=== PATIENT | male | born 1955 | race Caucasian/White ===

== ENCOUNTER → 2019-04-26 | Outpatient (CLI) | payer MEDICARE ==
[2019-04-27 14:24] LABS: LOG HCV IU/mL <1.08 (<1.08)
== END | disposition home or self-care (01) ==
LOC: LABWHC1 15:52
PROVIDERS: ATTEND Family Medicine
DX: R76.8 Other specified abnormal immunological findings in serum (principal)
CPT/HCPCS: 36415; 87522

== ENCOUNTER 2021-01-15 08:06 | Day surgery (SDC) | payer MEDICARE ==
[2021-01-14 10:33] VITALS: BMI 34.4
[~2021-01-15 08:06] MED LIST: ACETAMINOPHEN TAB 500 MG TAB PO PRN; HEPARIN SODIUM,PORCINE/PF 5,000 UNIT/0.5 ML SYRINGE SQ PRN
[2021-01-15 09:03] LABS: Glucose,Whole Blood 147 mg/dL (75-99)
[2021-01-15] MEDS ORDERED: ONDANSETRON 4 MG/2 ML VIAL ONE (09:04)
[2021-01-15] MEDS ORDERED: LACTATED RINGERS 1,000 ML IV ONE ×3 (09:05→11:04)
--- NOTE | 2021-01-15 09:50 | P.GSHP ---
History of Present Illness H&P Date: 01/15/21 Chief Complaint: Right upper quadrant pain This is a 65-year-old male who's presents with right upper quadrant pain. Patient CAT scan shows evidence of cholelithiasis. He presents today for laparoscopic cholecystectomy Past Medical History Past Medical History: COPD, Diabetes Mellitus, GERD/Reflux, Hyperlipidemia, Hypertension, Liver Disease, Osteoarthritis (OA), Prostate Disorder, Sleep Apnea/CPAP/BIPAP Additional Past Medical History / Comment(s): Hx Hepatitis C, now resolved. Enlarged prostate/urinary frequency. No CPAP use. Umbilical Hernia. History of Any Multi-Drug Resistant Organisms: None Reported Past Surgical History: Back Surgery, Coronary Bypass/CABG Additional Past Surgical History / Comment(s): Fusion L1-L5 back, bilateral rotator cuff repairs, bilateral knee surgery, left wrist carpal tunnel surgery, aortic valve replacement, foot surgery, bilateral catarcats, bilateral corneal transplants. Past Anesthesia/Blood Transfusion Reactions: No Reported Reaction Past Psychological History: No Psychological Hx Reported Smoking Status: Current every day smoker Past Alcohol Use History: None Reported Additional Past Alcohol Use History / Comment(s): Smokes 1 1/2 pack daily on and off for yrs, started again 5 yrs ago. Past Drug Use History: None Reported - Past Family History Mother Family Medical History: Cancer Additional Family Medical History / Comment(s): Breast Cancer. Sister(s) Family Medical History: Cancer Additional Family Medical History / Comment(s): Kidney, Vaginal Cancer. Medications and Allergies Home Medications Medication Instructions Recorded Confirmed Type Albuterol Inhaler [Ventolin Hfa 2 puff INHALATION RT-QID 05/28/20 01/15/21 History Inhaler] Atorvastatin [Lipitor] 20 mg PO HS 05/28/20 01/15/21 History Budesonide/Formoterol Fumarate 1 puff INHALATION BID 05/28/20 01/15/21 History [Symbicort 80-4.5 Mcg Inhaler] Metoprolol Succinate [Toprol XL] 50 mg PO QAM 05/28/20 01/14/21 History Pantoprazole Sodium 40 mg PO QAM 05/28/20 01/14/21 History Tamsulosin [Flomax] 0.4 mg PO DAILY 05/28/20 01/14/21 History metFORMIN HCL [Glucophage] 1,000 mg PO BID 05/28/20 01/15/21 History Pregabalin [Lyrica] 100 mg PO BID 01/14/21 01/14/21 History lisinopriL 20 mg PO BID 01/14/21 01/14/21 History traMADol HCL [Ultram] 50 mg PO Q8H PRN 01/15/21 01/15/21 History Allergies Allergy/AdvReac Type Severity Reaction Status Date / Time Interferons Allergy Anaphylaxis Verified 01/15/21 08:29 peginterferon ananda-2a Allergy Anaphylaxis Verified 01/15/21 08:29 [From Pegasys] riboflavin (vitamin B2) Allergy Anaphylaxis Verified 01/15/21 08:29 amitriptyline AdvReac Nausea & Verified 01/15/21 08:29 Vomiting & Diarrhea aspirin AdvReac Unknown Verified 01/15/21 08:31 gabapentin [From Neurontin] AdvReac Unknown Verified 01/15/21 08:29 Penicillins AdvReac Nausea & Verified 01/15/21 08:29 Vomiting sulfamethoxazole AdvReac Nausea & Verified 01/15/21 08:29 [From Bactrim] Vomiting trimethoprim [From Bactrim] AdvReac Nausea & Verified 01/15/21 08:29 Vomiting Surgical - Exam Vital Signs Temp Pulse Resp BP Pulse Ox 97.1 F L 79 16 161/96 96 01/15/21 08:27 01/15/21 08:27 01/15/21 08:27 01/15/21 08:27 01/15/21 08:27 - General well developed, well nourished, no distress - Eyes PERRL - ENT normal pinna - Neck no masses - Respiratory normal expansion - Cardiovascular Rhythm: regular - Abdomen Abdomen: soft, non tender Results - Labs Abnormal Lab Results - Last 24 Hours (Table) 01/15/21 Range/Units 08:56 POC Glucose (mg/dL) 147 H (75-99) mg/dL Assessment and Plan Assessment: Cholelithiasis. We'll perform laparoscopic cholecystectomy.
[2021-01-15] MEDS ORDERED: NEOSTIGMINE 1 MG/ML 10 ML VIAL ONE (09:53)
[2021-01-15] MEDS ORDERED: ROCURONIUM 10 MG/ML (5 ML VIAL) IV ONE (09:53)
[2021-01-15] MEDS ORDERED: fentaNYL (PF) 50 MCG/ML 2 ML AMP ONE (09:53)
[2021-01-15] MEDS ORDERED: GLYCOPYRROLATE 0.2 MG/ML 2 ML VIAL ONE (09:53)
[2021-01-15] MEDS ORDERED: MIDAZOLAM 2 MG/2 ML VIAL ONE (09:53)
[2021-01-15] MEDS ORDERED: SUCCINYLCHOLINE CHLORIDE 100 MG/5 ML SYR IV ONE (09:53)
[2021-01-15] MEDS ORDERED: LIDOCAINE 1% INJ 10MG/ML (20 ML MDV) ONE (09:53)
[2021-01-15] MEDS ORDERED: PHENYLEPHRINE-0.9% NACL SYG 1,000 MCG/10 ML SYRINGE ONE (09:53)
[2021-01-15] MEDS ORDERED: PROPOFOL 10 MG/ML 20 ML VIAL IV ONE (09:53)
[2021-01-15] MEDS ORDERED: LIDOCAINE 0.5%-EPI 1:200,000 50 ML VIAL SQ ONE ×2 (09:54)
--- NOTE | 2021-01-15 10:40 | P.OP ---
Date of Procedure: 01/15/21 Preoperative Diagnosis: Cholelithiasis Postoperative Diagnosis: Cholelithiasis Procedure(s) Performed: Laparoscopic cholecystectomy Anesthesia: HOWARD Surgeon: Remi Conway Estimated Blood Loss (ml): 5 Pathology: other (Gallbladder) Condition: stable Disposition: PACU Description of Procedure: The patient was placed on the operating table. The patient received a general endotracheal tube anesthesia. The patients abdomen was prepped and draped in the usual sterile fashion. Through an infraumbilical stab incision, the fascia of the anterior abdominal wall was grasped with a pair of Kochers and then the Veress needle was placed in the peritoneal cavity. Position of the Veress needle was confirmed with positive drop test. The abdomen was then insufflated. After adequate insufflation, the 10 mm trocar was placed in the peritoneal cavity. Following this the laparoscope was placed in the peritoneal cavity. The patient was placed in the head-up, right side up position and then a 5 mm trocar was placed in the right lateral and right subcostal position under direct visualization. A 8 mm trocar was placed in the epigastric position. The gallbladder was grasped in the fundus and infundibulum. Traction on the gallbladder was placed in the lateral and the cephalad positions. The triangle of Calot was visualized.. The cystic duct was bluntly dissected until the union of the cystic duct and common bile duct was seen. A critical view of safety was achieved. The cystic duct was then divided and sealed with the Harmonic scissors. A PDS Endoloop was then placed throughout the cystic duct stump. The cystic artery divided and sealed with the Harmonic scissors. The gallbladder was then removed from the liver bed using Harmonic scissors. The gallbladder was then extracted through the epigastric port site. Operative field was checked for any bleeding spots and Harmonic scissors was used to coagulate the liver bed. The abdomen was irrigated. The trocars were removed. The skin was closed using interrupted 3-0 Vicryl suture. Dermabond dressing were applied. The patient tolerated the procedure well.
[2021-01-15] MEDS ORDERED: HYDROmorphone 0.5 MG/0.5 ML SYRINGE IVP ONE ×2 (10:43→11:20)
[2021-01-15] MEDS: HYDROmorphone 1 MG/ML 1 ML SYRINGE IVP ONE ×2 (10:48→11:00)
[2021-01-15 11:08] VITALS: TEMP 97.5
[2021-01-15 11:31] LABS: Glucose,Whole Blood 157 mg/dL (75-99)
[2021-01-15 12:51] VITALS: BP 90/55; PULSE 67; RESP 20
== END 2021-01-15 13:26 | disposition home or self-care (01) ==
LOC: OR 08:06
PROVIDERS: ATTEND Surgery
DX: K81.1 Chronic cholecystitis (principal); J44.9 Chronic obstructive pulmonary disease, unspecified; E11.9 Type 2 diabetes mellitus without complications; K21.9 Gastro-esophageal reflux disease without esophagitis; E78.5 Hyperlipidemia, unspecified; I10 Essential (primary) hypertension; Z86.19 Personal history of other infectious and parasitic diseases; N40.0 Benign prostatic hyperplasia without lower urinary tract symptoms; R35.0 Frequency of micturition; K42.9 Umbilical hernia without obstruction or gangrene; Z95.1 Presence of aortocoronary bypass graft; Z98.1 Arthrodesis status; Z98.890 Other specified postprocedural states; Z98.42 Cataract extraction status, left eye; Z98.41 Cataract extraction status, right eye; Z94.7 Corneal transplant status; F17.210 Nicotine dependence, cigarettes, uncomplicated; Z95.2 Presence of prosthetic heart valve; Z97.2 Presence of dental prosthetic device (complete) (partial); Z80.3 Family history of malignant neoplasm of breast; Z80.51 Family history of malignant neoplasm of kidney; Z80.49 Family history of malignant neoplasm of other genital organs; Z79.84 Long term (current) use of oral hypoglycemic drugs; Z79.51 Long term (current) use of inhaled steroids; Z79.899 Other long term (current) drug therapy; Z88.6 Allergy status to analgesic agent; Z88.0 Allergy status to penicillin; Z88.2 Allergy status to sulfonamides; Z88.8 Allergy status to other drugs, medicaments and biological substances; M19.90 Unspecified osteoarthritis, unspecified site
CPT/HCPCS: 88304; 47562; J2250; J2710; J0690; J2405; J2001; J3010; J1170 ×2; J2370; J0330; J2704; J1644

== ENCOUNTER 2021-02-05 11:02 | Day surgery (SDC) | payer MEDICARE ==
[2021-02-03 10:38] VITALS: BMI 33.5
[~2021-02-05 11:02] MED LIST changes: +DEXAMETHASONE SOD PHOSPHATE 4 MG/ML 1 ML VIAL IV ONE; +LIDOCAINE 1% (10MG/ML) FOR IV START INTRADERMA PRN; +MIDAZOLAM 2 MG/2 ML VIAL IV PRN; +ONDANSETRON 4 MG/2 ML VIAL IVP ONE
[2021-02-05] MEDS: LACTATED RINGERS 1,000 ML IV SCH ×2 (11:19→12:15)
[2021-02-05 11:31] VITALS: TEMP 97.1
--- NOTE | 2021-02-05 11:55 | P.GSHP ---
History of Present Illness H&P Date: 02/05/21 Chief Complaint: Incarcerated umbilical hernia Is a 66-year-old male who presents today for laparoscopic robotic system repair of incarcerated umbilical hernia. Patient developed a tender mass in his umbilicus. Past Medical History Past Medical History: COPD, Diabetes Mellitus, GERD/Reflux, Hyperlipidemia, Hypertension, Liver Disease, Prostate Disorder, Respiratory Disorder, Sleep Apnea/CPAP/BIPAP Additional Past Medical History / Comment(s): hx hepatitis C, tinnitus, no cpap used, back injury from 40 foot fall, neuropathy, degenerative disks-"tilted pelvis", rt lazy eye History of Any Multi-Drug Resistant Organisms: None Reported Past Surgical History: Back Surgery, Cardiac Valve Replacement, Cholecystectomy, Coronary Bypass/CABG, Orthopedic Surgery Additional Past Surgical History / Comment(s): 2010 back fusion L1-L5 with hardware, shoulder rotator cuff bilateral, miniscus repair bilateral knees, carpal tunnel left wrist, Aortic valve replacement 2014, removal of neuroma from left foot, Cateracts bilateral, partial cornea transplant [facility](rt eye December 2020), cholecystecomy 01/15/21 Past Anesthesia/Blood Transfusion Reactions: No Reported Reaction Smoking Status: Current every day smoker - Past Family History Mother Family Medical History: Cancer Additional Family Medical History / Comment(s): breast Sister(s) Family Medical History: Cancer Additional Family Medical History / Comment(s): breast Medications and Allergies Home Medications Medication Instructions Recorded Confirmed Type Albuterol Inhaler [Ventolin Hfa 2 puff INHALATION RT-QID PRN 05/28/20 02/05/21 History Inhaler] Atorvastatin [Lipitor] 20 mg PO HS 05/28/20 02/05/21 History Budesonide/Formoterol Fumarate 1 puff INHALATION BID 05/28/20 02/05/21 History [Symbicort 80-4.5 Mcg Inhaler] Metoprolol Succinate [Toprol XL] 50 mg PO QAM 05/28/20 02/05/21 History Pantoprazole Sodium 40 mg PO QAM 05/28/20 02/05/21 History Tamsulosin [Flomax] 0.4 mg PO DAILY 05/28/20 02/05/21 History metFORMIN HCL [Glucophage] 1,000 mg PO BID 05/28/20 02/05/21 History Acetaminophen Tab [Tylenol] 650 mg PO Q6H PRN 02/03/21 02/05/21 History Aspirin [Adult Low Dose Aspirin EC] 81 mg PO DAILY 02/03/21 02/03/21 History Hydrocodone/Acetaminophen [[place] 1 tab PO TID PRN 02/03/21 02/05/21 History 7.5-325] Lisinopril-Hctz 20-12.5 mg 1 tab PO BID 02/03/21 02/05/21 History [Zestoretic 20-12.5] Moxifloxacin [Vigamox 0.3%] 1 drop RIGHT EYE DIRECTED 02/03/21 02/05/21 History Prednisolone Acetate/Pf 1 drop BOTH EYES DIRECTED 02/03/21 02/05/21 History [Prednisolone Acet 1% Eye Drop] Pregabalin [Lyrica] 150 mg PO TID 02/03/21 02/05/21 History Allergies Allergy/AdvReac Type Severity Reaction Status Date / Time Interferons Allergy Anaphylaxis Verified 02/05/21 11:24 peginterferon ananda-2a Allergy Anaphylaxis Verified 02/05/21 11:24 [From Pegasys] riboflavin (vitamin B2) Allergy Anaphylaxis Verified 02/05/21 11:24 amitriptyline AdvReac Nausea & Verified 02/05/21 11:24 Vomiting & Diarrhea aspirin AdvReac RINGING IN Verified 02/05/21 11:24 EARS, DR STILL WANTS HIM TO TAKE IT. gabapentin [From Neurontin] AdvReac Unknown Verified 02/05/21 11:24 Penicillins AdvReac Nausea & Verified 02/05/21 11:24 Vomiting sulfamethoxazole AdvReac Nausea & Verified 02/05/21 11:24 [From Bactrim] Vomiting trimethoprim [From Bactrim] AdvReac Nausea & Verified 02/05/21 11:24 Vomiting Surgical - Exam Vital Signs Temp Pulse Resp BP Pulse Ox 97.1 F L 78 16 125/56 94 L 02/05/21 11:27 02/05/21 11:27 02/05/21 11:27 02/05/21 11:27 02/05/21 11:27 - General well developed, well nourished, no distress - Eyes PERRL - ENT normal pinna - Neck no masses - Respiratory normal expansion - Cardiovascular Rhythm: regular - Abdomen Abdomen: soft, non tender Hernia: umbilical (2 cm incarcerated umbilical hernia) Assessment and Plan Assessment: Incarcerated local hernia. We'll perform laparoscopic robotic-assisted repair.
[2021-02-05 12:00] LABS: Glucose,Whole Blood 139 mg/dL (75-99)
[2021-02-05 12:00] LABS: Basophils # (A) 0.1 k/uL (0-0.2); Basophils % (A) 1 %; Eosinophils # (A) 0.4 k/uL (0-0.7); Eosinophils % (A) 4 %; HCT 36.7 % (39.0-53.0); HGB 12.7 gm/dL (13.0-17.5); Lymphocytes # (A) 1.6 k/uL (1.0-4.8); Lymphocytes % (A) 20 %; MCH 30.2 pg (25.0-35.0); MCHC 34.7 g/dL (31.0-37.0); MCV 86.8 fL (80.0-100.0); Mean Platelet Volume 10.4; Monocytes # (A) 0.4 k/uL (0-1.0); Monocytes % (A) 4 %; Neutrophils # (A) 5.6 k/uL (1.3-7.7); Neutrophils % (A) 68 %; Platelet Count 129 k/uL (150-450); RBC 4.23 m/uL (4.30-5.90); RDW 13.8 % (11.5-15.5); WBC 8.2 k/uL (3.8-10.6)
[2021-02-05 12:12] LABS: Albumin 4.5 g/dL (3.5-5.0); Calcium 9.5 mg/dL (8.4-10.2); Potassium 5.4 mmol/L (3.5-5.1); Total Bilirubin 0.3 mg/dL (0.2-1.3); Total Protein 7.1 g/dL (6.3-8.2)
[2021-02-05] MEDS ORDERED: GLYCOPYRROLATE 0.2 MG/ML 2 ML VIAL ONE (12:15)
[2021-02-05] MEDS ORDERED: NEOSTIGMINE 1 MG/ML 10 ML VIAL ONE (12:15)
[2021-02-05] MEDS ORDERED: KETAMINE 10 MG/ML 20 ML VIAL ONE (12:15)
[2021-02-05] MEDS ORDERED: WATER FOR INJECTION, STERILE 10 ML VIAL IV ONE (12:15)
[2021-02-05] MEDS ORDERED: fentaNYL (PF) 50 MCG/ML 2 ML AMP ONE (12:15)
[2021-02-05] MEDS ORDERED: LABETALOL 5 MG/ML VIAL MDV ONE (12:15)
[2021-02-05] MEDS ORDERED: ROCURONIUM 10 MG/ML (5 ML VIAL) IV ONE (12:15)
[2021-02-05] MEDS ORDERED: ePHEDrine SULFATE/0.9% NACL/PF 50 MG/5 ML SYRINGE IV ONE (12:15)
[2021-02-05] MEDS ORDERED: SUCCINYLCHOLINE CHLORIDE 100 MG/5 ML SYR IV ONE (12:15)
[2021-02-05] MEDS ORDERED: KETOROLAC 15 MG/ML 1 ML VIAL ONE (12:15)
[2021-02-05] MEDS ORDERED: LIDOCAINE 1% INJ 10MG/ML (20 ML MDV) ONE (12:15)
[2021-02-05] MEDS ORDERED: PROPOFOL 10 MG/ML 20 ML VIAL IV ONE (12:15)
[2021-02-05] MEDS ORDERED: MIDAZOLAM 2 MG/2 ML VIAL ONE (12:15)
[2021-02-05] MEDS ORDERED: LIDOCAINE 1%-EPI 1:100,000 20 ML VIAL SQ ONE ×2 (12:38→13:09)
--- NOTE | 2021-02-05 13:26 | P.OP ---
Date of Procedure: 02/05/21 Preoperative Diagnosis: Incarcerated umbilical hernia Postoperative Diagnosis: Incarcerated umbilical hernia Procedure(s) Performed: Laparoscopic robotic-assisted repair of incarcerated umbilical hernia excision of incarcerated omentum Anesthesia: HOWARD Surgeon: Remi Conway Estimated Blood Loss (ml): 5 Pathology: other (Omentum) Condition: stable Disposition: PACU Description of Procedure: The patient was placed on the operating table in the supine position. He rec eived general anesthesia. His abdomen was prepped and draped usual fashion. Using a 5 mm optical trocar under direct visualization the peritoneal cavity was entered in the left upper quadrant. The abdomen was then insufflated. The laparoscope was placed back into the perineal cavity. Next a 8 mm robotic trocar was placed in the left lower quadrant and a 12 mm robotic trocar was placed in the left lateral position. The original 5 mm trocar was exchanged for a 8 mm robotic trocar. The patient's placed in the left side up position. And the patient was undocked the robot. The umbilical hernia was visualized. Using hook cautery the peritoneum over the umbilical hernia was excised. The incarcerated omentum was dissected free and sent to pathology. The fascial opening was repaired using 0V LOC suture. Next a piece of 11 cm round ventral light ST mesh was placed into the. Cavity and secured with 2 OV lock suture. The patient was undocked the robot. The needles were retrieved. The fascia of the 12 mm trocar site was closed with 0 Ethibond suture. Skin was closed interrupted 3-0 Monocryl suture. Dermabond dressings was applied. Patient top procedure well and was sent to recovery room stable condition.
[2021-02-05] MEDS: HYDROmorphone 0.5 MG/0.5 ML SYRINGE IVP PRN ×4 (13:53→15:05)
[2021-02-05 15:14] VITALS: RESP 16
[2021-02-05 15:37] VITALS: BP 123/71; PULSE 73
== END 2021-02-05 16:14 | disposition home or self-care (01) ==
LOC: OR 11:02
PROVIDERS: ATTEND Surgery
DX: K42.0 Umbilical hernia with obstruction, without gangrene (principal); J44.9 Chronic obstructive pulmonary disease, unspecified; K21.9 Gastro-esophageal reflux disease without esophagitis; E78.5 Hyperlipidemia, unspecified; I10 Essential (primary) hypertension; E11.40 Type 2 diabetes mellitus with diabetic neuropathy, unspecified; K76.9 Liver disease, unspecified; N42.9 Disorder of prostate, unspecified; G47.30 Sleep apnea, unspecified; Z86.19 Personal history of other infectious and parasitic diseases; H93.19 Tinnitus, unspecified ear; M43.8X9 Other specified deforming dorsopathies, site unspecified; Z95.2 Presence of prosthetic heart valve; Z98.890 Other specified postprocedural states; Z90.49 Acquired absence of other specified parts of digestive tract; Z95.1 Presence of aortocoronary bypass graft; Z98.1 Arthrodesis status; Z98.42 Cataract extraction status, left eye; Z98.41 Cataract extraction status, right eye; Z94.7 Corneal transplant status; F17.200 Nicotine dependence, unspecified, uncomplicated; Z80.3 Family history of malignant neoplasm of breast; Z79.84 Long term (current) use of oral hypoglycemic drugs; Z79.82 Long term (current) use of aspirin; Z79.51 Long term (current) use of inhaled steroids; Z79.899 Other long term (current) drug therapy; Z88.6 Allergy status to analgesic agent; Z88.0 Allergy status to penicillin; Z88.2 Allergy status to sulfonamides; Z88.8 Allergy status to other drugs, medicaments and biological substances
CPT/HCPCS: 88305; 80053; 85025; 49587; C1781; J2250; J1100; J2710; J0690; J2405; J2001; J3010; J1885; J0330; J2704; J1170; J1644

== ENCOUNTER → 2021-08-08 | Outpatient (CLI) | payer MEDICARE ==
--- NOTE | 2021-08-08 09:03 | CTL ---
EXAMINATION TYPE: CT Low Dose Lung DATE OF EXAM ORDERED: 08/08/2021 COMPARISON: None HISTORY: . Low Dose CT Lung Screening CT DLP: 135.[address] CTDI: 3.7 mGy IV CONTRAST USED: None. SCREENING VISIT: First visit COMPARISON: None. TECHNIQUE: Low dose computed tomography scan was performed through the chest at 1 millimeter thick se ctions and reconstructed images in the coronal plane at [address] DIAGNOSTIC QUALITY: Satisfactory FINDINGS: LUNG NODULES: There is pleural-based density measuring 2.2 x 1.7 cm which is likely postinflammatory in nature. As a precautionary measure follow-up study in 3 months is advised. LUNGS: COPD: Severity: Moderate. Postinflammatory changes noted right lower lobe and right middle lobe. Johnna trilobular emphysematous change. Fibrosis: Severity:None Lymph nodes: None Other findings: None RIGHT PLEURAL SPACE: Effusion: None Calcification: None Thickening: See above. Pneumothorax: None LEFT PLEURAL SPACE: Effusion: None Calcification: None Thickening: None Pneumothorax: None HEART: Heart Size: Mildly enlarged Coronary calcification: Mild Pericardial effusion: None OTHER FINDINGS: Upper abdomen: No significant abnormality Bony thorax: Degenerative changes Supraclavicular region: No significant abnormalityOther: No significant abnormalityI IMPRESSION: There is pleural-based density measuring 2.2 x 1.7 cm which is likely postinflammatory in nature. As a precautionary measure follow-up study in 3 months is advised. FOLLOW UP CT CHEST RECOMMENDATION: 3 month follow-up advised. CT LUNG RAD: LUNG RAD CATEGORY probably benign category 2
== END | disposition home or self-care (01) ==
LOC: RADCTMAIN 07:47
PROVIDERS: ATTEND Family Medicine
DX: Z12.2 Encounter for screening for malignant neoplasm of respiratory organs (principal); J98.4 Other disorders of lung
CPT/HCPCS: 71271

== ENCOUNTER → 2021-09-16 | Outpatient (CLI) | payer MEDICARE ==
--- NOTE | 2021-09-17 08:44 | CT ---
EXAMINATION TYPE: CT abdomen pelvis wo con DATE OF EXAM: 09/16/2021 COMPARISON: None HISTORY: 66-year-old male K5 7.32 diverticulitis, LLQ pain R10.32 CT DLP: 1027 mGycm. Automated exposure control for dose reduction was used. TECHNIQUE: Contiguous axial scanning of the abdomen and pelvis without IV contrast. Coronal and sagit lance reconstructions performed. FINDINGS: Mitral annular calcifications are evident. Heart normal size without pericardial effusion. Lung bases show some strandy atelectasis at the inferior lingula. No pleural effusion. Tiny hiatal hernia. Indeterminate round 3.1 cm lesion segment 3 left liver lobe shows soft tissue density. A complicated cyst or hemangioma are benign possibilities. Other etiologies not excluded at this time. Gallbladder surgically absent. The adrenal glands, kidneys, spleen, and atrophic pancreas show no gross abnormality. Ehmy-xz-jbbzffci atherosclerotic calcifications infrarenal abdominal aorta. No dilated small bowel, free fluid, or free air. No mesenteric or retroperitoneal lymphadenopathy. Normal appendix. Mild stool within the right side of the colon. There is minimal sigmoid diverticulos is. No pericolonic inflammatory changes seen. Bladder is urine distended. Prostate gland measures 4.7 cm wide. Partially visualized round 1.1 cm no dule along the lateral aspect of the left upper scrotum, probably a sebaceous cyst, axial image 95. O therwise, no abnormal fluid collection the pelvis or pelvic lymphadenopathy. Bones: Advanced degenerative disc disease visualized lower thoracic spine. There is postoperative patricia nge of posterior lumbar fusion from L2 through S1 levels with corresponding laminectomies. IMPRESSION: 1. Mid sigmoid diverticulosis without acute diverticulitis. 2. An indeterminate round 3.1 cm lesion left liver lobe. Recommend liver ultrasound to attempt furth er characterization. 3. Prostatomegaly at 4.7 cm wide. 4. A partially visualized 1.1 cm nodule along the lateral aspect of the left upper scrotum. A sebace ous cyst is suspected. Correlate with physical exam findings.
== END | disposition home or self-care (01) ==
LOC: RADCTMAIN 14:43
PROVIDERS: ATTEND Surgery
DX: K57.30 Diverticulosis of large intestine without perforation or abscess without bleeding (principal); N40.0 Benign prostatic hyperplasia without lower urinary tract symptoms; N50.89 Other specified disorders of the male genital organs
CPT/HCPCS: 36415; 74176; 82565; 84520

== ENCOUNTER → 2021-10-08 | Outpatient (CLI) | payer MEDICARE ==
--- NOTE | 2021-10-08 09:23 | US ---
EXAMINATION TYPE: US liver DATE OF EXAM: 10/08/2021 COMPARISON: CT CLINICAL HISTORY: K76.9 Liver lesion. Liver lesion visualized on CT, pt states history of Hep C, GB r emoved EXAM MEASUREMENTS: Liver Length: 15.2 cm CBD: 0.4 cm Right Kidney: 11.0 x 6.1 x 5.3 cm Pancreas: Obscured by bowel gas Liver: Heterogeneous, solid lesion left lobe= 2.8 x 2.7 x 3.3 cm Gallbladder: Surgically absent Evidence for sonographic Hooper's sign: No CBD: wnl Right Kidney: wnl IMPRESSION: 1. Hepatic steatosis. 2. Solid mass left hepatic lobe. Consider MRI of the liver.
== END | disposition home or self-care (01) ==
LOC: RADUSWWP 08:48
PROVIDERS: ATTEND Surgery
DX: K76.0 Fatty (change of) liver, not elsewhere classified (principal); R16.0 Hepatomegaly, not elsewhere classified
CPT/HCPCS: 76705

== ENCOUNTER → 2021-10-29 | Outpatient (CLI) | payer MEDICARE ==
--- NOTE | 2021-10-31 10:54 | MR ---
EXAMINATION TYPE: MR liver wo/w con DATE OF EXAM: 10/29/2021 COMPARISON: CT 09/16/2021 and ultrasound 10/08/2021 HISTORY: 66-year-old male K76.89, Liver mass. Technique: Multiplanar, multisequence images of the abdomen were obtained before and after administra tion of 10 mL intravenous Gadavist gadolinium contrast. FINDINGS: The liver is normal size at 14.5 cm. No significant fatty infiltration appearing to oppose phase T1-w eighted images. There is a mildly T2 hyperintense and T1 low signal intensity 3.2 cm lesion redemonstrated involving segment 3 left liver lobe. This is mostly bright on ADC map but with slight low signal intensity. Thi s is a hypervascular lesion demonstrating heterogeneous arterial enhancement on the earliest postcont rast sequence. No significant washout is identified and the lesion demonstrates persistent heterogeneous enhancement on later phases. No additional liver lesion seen. No biliary ductal dilatation. Portal venous system is patent. Gallbladder surgically absent. Cortical defect lateral left kidney suggesting sequela of prior vascular or infectious insult. Right kidney, adrenal glands, spleen, atrophic pancreas show no gross anomaly. No gross bowel abnormality, upper abdominal ascites, or lymphadenopathy seen. There is moderate stool burden. Artifact relating to the patient's posterior lumbar fusion hardware. IMPRESSION: 1. 3.2 cm solid mass segment 3 left liver lobe. This lesion remains nonspecific, but given the hyperv ascular nature and persistent heterogeneous postcontrast enhancement without washout, an atypical hem angioma is favored at this time. Three-month follow-up ultrasound to reassess. If stable at that time , continued imaging surveillance will be recommended. If any enlargement is noted, tissue sampling ca n then be performed. 2. Status post cholecystectomy. No biliary ductal dilatation.
== END | disposition home or self-care (01) ==
LOC: RADMRIMAIN 14:20
PROVIDERS: ATTEND Surgery
DX: R16.0 Hepatomegaly, not elsewhere classified (principal); Z90.49 Acquired absence of other specified parts of digestive tract
CPT/HCPCS: 74183; A9585

== ENCOUNTER → 2021-12-05 | Outpatient (CLI) | payer MEDICARE ==
--- NOTE | 2021-12-07 20:35 | CT ---
EXAMINATION TYPE: CT abdomen pelvis w con DATE OF EXAM: 12/05/2021 COMPARISON: Prior liver October 29, 2021. CT abdomen and pelvis September 16, 2021 HISTORY: h/o abd pain. Diverticulitis per order. CT DLP: 5.5 mGycm, Automated Exposure Control for Dose Reduction was Utilized. CONTRAST: CT scan of the abdomen and pelvis is performed with oral and with IV Contrast, patient injected with 80 mL of Isovue 300. FINDINGS: LUNG BASES: New mild to moderate linear scarring and/or atelectasis in the right lower lobe. Mitral a nnular calcifications redemonstrated. LIVER/GB: Redemonstration of 3.0 cm round well-circumscribed lesion in the left hepatic lobe becoming hyperintense to liver on arterial postcontrast imaging and being isodense to slightly hypodense to r emainder of liver on delayed phase imaging. It is stable in size from prior CT and MRI, possible atyp ical hemangioma. No definitive new lesions identified. No biliary dilatation is seen. Gallbladder narnedra gically absent. PANCREAS: Mild to moderate generalized fat replaced atrophy . SPLEEN: No significant abnormality is seen. ADRENALS: No significant abnormality is seen. KIDNEYS: Focal volume loss midpole of the left kidney. Symmetric cortical uptake and excretion withou t hydronephrosis seen bilaterally. Oral contrast only reaches jejunal loops in the left abdomen. No suspicious small or large bowel dila tation. Jeaa-jh-rlxyjzex fecal prominence throughout the colon. Normal-appearing appendix from the ce cum. A few diverticula in the sigmoid colon. No CT evidence for acute diverticulitis. PROSTATE/SEMINAL VESICLES: Prostate gland upper limits of normal in size.. LYMPH NODES: No greater than 1cm abdominal or pelvic lymph nodes are appreciated. OSSEOUS STRUCTURES: Slight underlying scoliotic curvature on coronal images. Spine is straightened an d sagittal images. Surgical change L2-S1 level is present. There is zmadgudm-sn-usqqlm disc space bhaskar rowing second disc phenomenon along with moderate spurring and endplate sclerosis at L1-L2 and L5-S1 levels. Similar findings noted at T9-T10 and T10-T11 levels. OTHER: Mild to moderate calcified plaque of the aorta extends into branch vessels. IMPRESSION: A few distal colonic diverticula. No CT evidence for acute diverticulitis. Mild to modera te diffuse colonic fecal prominence. No bowel obstruction.Stable in size nonspecific 3.0 cm liver les ion should be followed.
== END | disposition home or self-care (01) ==
LOC: RADCTMAIN 13:53
PROVIDERS: ATTEND Surgery
DX: K57.30 Diverticulosis of large intestine without perforation or abscess without bleeding (principal); K76.89 Other specified diseases of liver
CPT/HCPCS: 82565; 84520; 74177; 36415; Q9967

== ENCOUNTER → 2022-01-07 | Outpatient (CLI) | payer MEDICARE ==
--- NOTE | 2022-01-07 14:32 | US ---
EXAMINATION TYPE: US liver DATE OF EXAM: 01/07/2022 COMPARISON: 10/08/2021, CT scan 12/05/2021 CLINICAL HISTORY: D18.03 LIVER HEMANGIOMA. Follow up liver lesion EXAM MEASUREMENTS: Liver Length: 16.5 cm CBD: 0.5 cm Right Kidney: 11.4 x 6.4 x 6.6 cm Pancreas: obscured by overlying midline bowel gas Liver: 3.6 x 3.0 x 3.6cm hypoechoic lesion left lobe Gallbladder: surgically absent Evidence for sonographic Hooper's sign: no CBD: wnl Right Kidney: wnl IMPRESSION: 1. There is a 3.6 cm left lobe liver lesion. Corresponds to the CT abnormality. This measures slightl y increased in size relative to prior ultrasound. Correlation with PET scan could BE obtained as clin ically warranted.
== END | disposition home or self-care (01) ==
LOC: RADUSWWP 13:35
PROVIDERS: ATTEND Surgery
DX: K76.89 Other specified diseases of liver (principal); Z90.49 Acquired absence of other specified parts of digestive tract
CPT/HCPCS: 76705

== ENCOUNTER 2022-04-07 06:41 | Day surgery (SDC) | payer MEDICARE ==
[~2022-04-07 06:41] MED LIST changes: -ACETAMINOPHEN TAB 500 MG TAB PO PRN; -DEXAMETHASONE SOD PHOSPHATE 4 MG/ML 1 ML VIAL IV ONE; -HEPARIN SODIUM,PORCINE/PF 5,000 UNIT/0.5 ML SYRINGE SQ PRN; +LACTATED RINGERS 1,000 ML IV SCH; -LIDOCAINE 1% (10MG/ML) FOR IV START INTRADERMA PRN; -MIDAZOLAM 2 MG/2 ML VIAL IV PRN; -ONDANSETRON 4 MG/2 ML VIAL IVP ONE
[2022-04-07] MEDS ORDERED: LIDOCAINE 1% (10MG/ML) FOR IV START INTRADERMA ONE (07:21)
[2022-04-07 07:28] VITALS: TEMP 97.3
[2022-04-07 07:33] LABS: Glucose,Whole Blood 97 mg/dL (70-110)
[2022-04-07] MEDS ORDERED: PROPOFOL 10 MG/ML 20 ML VIAL IV ONE (07:52)
[2022-04-07] MEDS ORDERED: LIDOCAINE 2% INJ 20 MG/ML (2 ML VIAL) ONE (07:52)
--- NOTE | 2022-04-07 08:12 | P.PCN ---
Date of Procedure: 04/07/22 Procedure(s) Performed: BRIEF HISTORY: Patient is a 67-year-old pleasant male scheduled for an elective colonoscopy as a part of evaluation of prior history of colon polyps. Last colonoscopy was 5 years ago. PROCEDURE PERFORMED: Colonoscopy with snare polypectomy and biopsy. PREOPERATIVE DIAGNOSIS: History of colon polyps. IV sedation per Anesthesia. PROCEDURE: After informed consent was obtained, the patient, was brought into the endoscopy unit. IV sedation was administered by Anesthesia under continuous monitoring. Digital rectal examination was normal. Initially the Olympus CF-160 flexible video colonoscope was then inserted in the rectum, gradually advanced into the cecum without any difficulty. Careful examination was performed as the scope was gradually being withdrawn. Ileocecal valve and the appendiceal orifice were visualized and appeared normal. Prep was excellent. Mucosa of the cecum, appeared normal. Ascending colon there were 3 polyps measuring 5-6 cm in size which were removed by snare polypectomy. Also there was a 5 mm isolated ulceration in the ascending colon with friable mucosa which was biopsied. There was another isolated 5 mm mucosal ulceration in the hepatic flexure which was also biopsied. Rest of the ascending colon, transverse colon, descending colon, sigmoid colon, and rectum appeared normal. Retroflexion was performed in the rectum and no lesions were seen. The patient tolerated the procedure well. IMPRESSION: 5 mm, 6 mm 2 ascending colon polyp status post polypectomy 5 mm superficial ascending colon ulceration status post biopsy 5 mm hepatic flexure also status post cold biopsy Rest of the colon appeared normal Recommendations. Findings of this examination were discussed with the patient as well as his family.. He was advised to follow with the biopsy sites. If the biopsy result adenoma he can have a repeat colonoscopy in 5 years
[2022-04-07 08:33] VITALS: BP 108/66; PULSE 57; RESP 16
== END 2022-04-07 08:52 | disposition home or self-care (01) ==
LOC: ORWHC2ENDO 06:41
PROVIDERS: ATTEND Internal Medicine Gastroenterology
DX: Z12.11 Encounter for screening for malignant neoplasm of colon (principal); D12.2 Benign neoplasm of ascending colon; K51.90 Ulcerative colitis, unspecified, without complications; Z86.010 Personal history of colon polyps; I10 Essential (primary) hypertension; E78.5 Hyperlipidemia, unspecified; G47.33 Obstructive sleep apnea (adult) (pediatric); E11.9 Type 2 diabetes mellitus without complications; R79.89 Other specified abnormal findings of blood chemistry; B19.20 Unspecified viral hepatitis C without hepatic coma; Z98.890 Other specified postprocedural states; Z79.899 Other long term (current) drug therapy; Z88.8 Allergy status to other drugs, medicaments and biological substances
CPT/HCPCS: 88305; 45380; 45385; J2704; J2001

== ENCOUNTER → 2022-08-12 | Outpatient (CLI) | payer MEDICARE ==
--- NOTE | 2022-08-12 14:52 | CTL ---
EXAMINATION TYPE: CT Low Dose Lung DATE OF EXAM ORDERED: 08/12/2022 HISTORY: . Lung cancer screening CT DLP: 101.[address] CTD: 2.6 mGy Automated exposure control for dose reduction was used. SCREENING VISIT: COMPARISON: 08/08/2021 TECHNIQUE: Low dose computed tomography scan was performed through the chest at 1 mm thick sections a nd reconstructed images in multiple planes at 1 mm and [address] DIAGNOSTIC QUALITY: Satisfactory FINDINGS: Moderate centrilobular emphysema. Subsegmental linear changes are seen bilaterally most typical atele ctasis or scarring. A pleural-based densities bilaterally are likely postinflammatory and stable. No pleural effusion or pneumothorax. No focal pneumonia. Annular calcification is seen. There is atherosclerotic change of the coronary arteries and aorta. Pr ior surgery of the aortic valve suspected. No sizable pericardial effusion. Hypertrophic and degenerative changes of the spine with multilevel f acet arthropathy. There is a calcification seen near the gallbladder fossa. Postsurgical change invol ving the vertebral column. IMPRESSION: 1. Pleural-based densities are stable most likely postinflammatory or on the basis of chronic atelect asis or scarring. 2. Coronary artery calcification. 3. Moderate centrilobular emphysema CT LUNG RAD AND CT CHEST RECOMMENDATION: Lung-Rad 2 Benign Appearance or Behavior: Continue annual sc reening with LDC in 12 months. S Modifier (other clinically significant findings): S
== END | disposition home or self-care (01) ==
LOC: RADCTMAIN 13:11
PROVIDERS: ATTEND Family Medicine
DX: Z12.2 Encounter for screening for malignant neoplasm of respiratory organs (principal); J43.2 Centrilobular emphysema; I25.10 Atherosclerotic heart disease of native coronary artery without angina pectoris; J98.4 Other disorders of lung; Z87.891 Personal history of nicotine dependence
CPT/HCPCS: 71271

== ENCOUNTER → 2023-11-23 | Outpatient (CLI) | payer MEDICARE ==
--- NOTE | 2023-11-23 22:39 | CTL ---
EXAMINATION TYPE: CT Low Dose Lung DATE OF EXAM ORDERED: 11/23/2023 HISTORY: . Lung cancer screening CT DLP: 107.[address] CTDI: 2.6 mGy Automated exposure control for dose reduction was used. SCREENING VISIT: Subsequent COMPARISON: 08/12/2019 TECHNIQUE: Low dose computed tomography scan was performed through the chest at 1 mm thick sections a nd reconstructed images in the coronal plane at [address] DIAGNOSTIC QUALITY: Satisfactory FINDINGS: LUNG NODULES: None. LUNGS: COPD: Severity: Mild Fibrosis: Severity: None Lymph nodes: None Other findings: None RIGHT PLEURAL SPACE: Effusion: None Calcification: None Thickening: None Pneumothorax: None LEFT PLEURAL SPACE: Effusion: None Calcification: None Thickening: None Pneumothorax: None HEART: Heart Size: Normal Coronary calcification: None Pericardial effusion: None OTHER FINDINGS: Upper abdomen: Normal Bony thorax: Normal Supraclavicular region: Normal Other: Ascending thoracic aorta at the level the main pulmonary artery measures 3.8 cm. The main pul monary artery at the bifurcation measures 2.6 cm. IMPRESSION: 1. No suspicious changes for primary or metastatic neoplasm FOLLOW UP CT CHEST RECOMMENDATION: Follow-up low-dose CT chest one year CT LUNG RAD: Lung-Rad 2 Benign Appearance or Behavior
== END | disposition home or self-care (01) ==
LOC: RADCTMAIN 15:50
PROVIDERS: ATTEND Family Medicine
DX: Z12.2 Encounter for screening for malignant neoplasm of respiratory organs (principal); F17.210 Nicotine dependence, cigarettes, uncomplicated
CPT/HCPCS: 71271

== ENCOUNTER 2024-03-21 20:30 | Inpatient (IN) | payer MEDICARE ==
[~2024-03-21 20:30] MED LIST changes: +ASCORBIC ACID 500 MG TAB ONE; +ATORVASTATIN 20 MG TAB ONE; +ENOXAPARIN 40 MG/0.4 ML SYRINGE SQ ONE; +HYDROcodone/APAP 5-325MG 1 EACH TAB ONE; -LACTATED RINGERS 1,000 ML IV SCH; +MORPHINE SULFATE 4 MG/ML SYRINGE ONE; +ONDANSETRON 4 MG/2 ML VIAL ONE; +PANTOPRAZOLE 40 MG/10 ML VIAL ONE; +SODIUM CHLORIDE 0.9% 1,000 ML BAG ONE; +TAMSULOSIN 0.4 MG CAP.ER.24H PO ONE; +TEMAZEPAM 15 MG CAP ONE; +ZINC SULFATE 220 MG CAP ONE; +amLODIPine 5 MG TAB ONE
[2024-03-21] MEDS ORDERED: PREGABALIN 50 MG CAP ONE (22:21)
[2024-03-22] MEDS ORDERED: amLODIPine 5 MG TAB ONE (08:09)
[2024-03-22] MEDS ORDERED: ATORVASTATIN 20 MG TAB ONE (08:10)
[2024-03-22] MEDS ORDERED: ZINC SULFATE 220 MG CAP ONE (08:10)
[2024-03-22] MEDS ORDERED: ENOXAPARIN 40 MG/0.4 ML SYRINGE SQ ONE (08:10)
[2024-03-22] MEDS ORDERED: TAMSULOSIN 0.4 MG CAP.ER.24H PO ONE (08:10)
[2024-03-22] MEDS ORDERED: ASCORBIC ACID 500 MG TAB ONE (08:10)
[2024-03-22] MEDS ORDERED: GLIMEPIRIDE 2 MG TAB ONE (08:11)
[2024-03-22] MEDS ORDERED: HYDROcodone/APAP 10-325MG 1 EACH TAB ONE (08:11)
[2024-03-22] MEDS ORDERED: PREGABALIN 50 MG CAP ONE (08:11)
[2024-03-22] MEDS ORDERED: METOPROLOL SUCCINATE (ER) 50 MG TAB.ER.24H PO ONE (08:11)
[2024-03-22] MEDS ORDERED: LOPERAMIDE 2 MG CAP ONE (09:52)
--- NOTE | 2024-04-07 12:10 | XR ---
EXAMINATION TYPE: XR chest 2V DATE OF EXAM: 04/07/2024 10:33 AM CLINICAL INDICATION: Male, 69 years old with history of Abd Pain; [facility] COMPARISON: 03/20/2024 TECHNIQUE: XR chest 2V Frontal view of the chest. FINDINGS: Lungs/Pleura: There is no evidence of pleural effusion, focal consolidation, or pneumothorax. Pulmonary vascularity: Unremarkable. Heart/mediastinum: Cardiomediastinal silhouette is unremarkable. Musculoskeletal: No acute osseous pathology. Midline sternotomy wires are noted. IMPRESSION: No acute cardiopulmonary disease/process.
== END 2024-03-22 13:00 | disposition home or self-care (01) | DRG 178 ==
LOC: DISRECOVER 20:30
PROVIDERS: ADMIT Internal Medicine; ATTEND Internal Medicine
DX: U07.1 COVID-19 (principal); N17.9 Acute kidney failure, unspecified; J44.9 Chronic obstructive pulmonary disease, unspecified; E11.9 Type 2 diabetes mellitus without complications; I10 Essential (primary) hypertension; E78.5 Hyperlipidemia, unspecified; E86.0 Dehydration; Z79.84 Long term (current) use of oral hypoglycemic drugs; Z79.51 Long term (current) use of inhaled steroids; Z79.899 Other long term (current) drug therapy; Z88.1 Allergy status to other antibiotic agents; Z88.6 Allergy status to analgesic agent; Z88.0 Allergy status to penicillin; Z88.8 Allergy status to other drugs, medicaments and biological substances
CPT/HCPCS: 93005

== ENCOUNTER 2024-05-24 00:18 | Inpatient (IN) | payer MEDICARE ==
--- NOTE | 2024-05-24 00:43 | ED ---
General Adult HPI - General Chief complaint: Fall Stated complaint: Weakness Time Seen by Provider: 05/24/24 00:32 Source: patient, EMS, RN notes reviewed Mode of arrival: EMS - History of Present Illness Initial comments: 69-year-old male presents emergency department with his via EMS for chief complaint of generalized weakness. states that patient was recently diagn osed with liver cancer approximately 2 weeks ago and is scheduled to have his PET scan 05/25/24. It is reported that over the past week patient has been more weak and has not been getting out of bed much and is been having a sore throat, worsening productive cough, chills. Patient does have a history of COPD. States that he has not been feeling well and has been very weak causing him to fall this evening when he went to use the bathroom. He denies chest pain, dizziness, lightheadedness. Endorses mild shortness of breath. Denies abdominal pain. - Related Data Home Medications Medication Instructions Recorded Confirmed Albuterol Inhaler [Ventolin Hfa 2 puff INHALATION RT-QID PRN 05/28/20 04/07/22 Inhaler] Atorvastatin [Lipitor] 20 mg PO HS 05/28/20 04/07/22 Metoprolol Succinate [Toprol XL] 50 mg PO QAM 05/28/20 04/07/22 Pantoprazole Sodium 40 mg PO QAM 05/28/20 04/07/22 Tamsulosin [Flomax] 0.4 mg PO DAILY 05/28/20 04/07/22 Acetaminophen Tab [Tylenol] 650 mg PO Q6H PRN 02/03/21 04/07/22 Aspirin [Adult Low Dose Aspirin EC] 81 mg PO DAILY 02/03/21 04/07/22 Lisinopril-Hctz 20-12.5 mg 1 tab PO BID 02/03/21 04/07/22 [Zestoretic 20-12.5] Prednisolone Acetate/Pf 1 drop BOTH EYES DIRECTED 02/03/21 04/07/22 [Prednisolone Acet 1% Eye Drop] Glimepiride [Amaryl] 4 mg PO QAM 04/03/22 04/07/22 Hydrocodone/Acetaminophen 1 tab PO Q6H PRN 04/03/22 04/07/22 [Hydrocodone/Acetaminophen 5-325] Lubiprostone 8 mcg PO BID 04/03/22 04/07/22 Pregabalin [Lyrica] 100 mg PO TID 04/03/22 04/07/22 Tiotropium 18 Mcg/Puff [Spiriva] 1 puff INHALATION QAM 04/03/22 04/07/22 Allergies Allergy/AdvReac Type Severity Reaction Status Date / Time Interferons Allergy Anaphylaxis Verified 05/24/24 00:36 peginterferon ananda-2a Allergy Anaphylaxis Verified 05/24/24 00:36 [From Pegasys] riboflavin (vitamin B2) Allergy Anaphylaxis Verified 05/24/24 00:36 amitriptyline AdvReac Nausea & Verified 05/24/24 00:36 Vomiting & Diarrhea aspirin AdvReac RINGING IN Verified 05/24/24 00:36 EARS, DR STILL WANTS HIM TO TAKE IT. gabapentin [From Neurontin] AdvReac Unknown Verified 05/24/24 00:36 Latex, Natural Rubber AdvReac Rash/Hives Verified 05/24/24 03:38 Penicillins AdvReac Nausea & Verified 05/24/24 00:36 Vomiting sulfamethoxazole AdvReac Nausea & Verified 05/24/24 00:36 [From Bactrim] Vomiting trimethoprim [From Bactrim] AdvReac Nausea & Verified 05/24/24 00:36 Vomiting Review of Systems ROS Statement: Those systems with pertinent positive or pertinent negative responses have been documented in the HPI. ROS Other: All systems not noted in ROS Statement are negative. Past Medical History Past Medical History: Cancer, COPD, Diabetes Mellitus, GERD/Reflux, Hyperlipidemia, Hypertension, Liver Disease, Osteoarthritis (OA), Prostate Disorder, Sleep Apnea/CPAP/BIPAP Additional Past Medical History / Comment(s): Hx Hepatitis C, now resolved. Enlarged prostate/urinary frequency. No CPAP use. Umbilical Hernia. Liver Cancer History of Any Multi-Drug Resistant Organisms: None Reported Past Surgical History: Back Surgery, Cholecystectomy, Coronary Bypass/CABG, Hernia Repair Additional Past Surgical History / Comment(s): BILATERAL CORNEAL TRANSPLANT 2020. Fusion L1-L5 back, bilateral rotator cuff repairs, bilateral knee surgery, left wrist carpal tunnel surgery, aortic valve replacement, foot surgery, bilateral catarARACTS Past Anesthesia/Blood Transfusion Reactions: No Reported Reaction Past Psychological History: No Psychological Hx Reported Smoking Status: Current every day smoker Past Alcohol Use History: None Reported Past Drug Use History: None Reported - Past Family History Mother Family Medical History: Cancer Additional Family Medical History / Comment(s): breast Sister(s) Family Medical History: Cancer Additional Family Medical History / Comment(s): breast General Exam General appearance: alert, in no apparent distress Eye exam: Present: normal appearance, PERRL, EOMI. Absent: scleral icterus, conjunctival injection, periorbital swelling ENT exam: Present: mucous membranes dry Respiratory exam: Present: wheezes, rhonchi. Absent: normal lung sounds bilaterally Cardiovascular Exam: Present: regular rate, normal rhythm, normal heart sounds. Absent: systolic murmur, diastolic murmur, rubs, gallop, clicks GI/Abdominal exam: Present: soft, distended, normal bowel sounds. Absent: tenderness, guarding, rebound, rigid Extremities exam: Present: normal inspection, full ROM, normal capillary refill. Absent: tenderness, pedal edema, joint swelling, calf tenderness Back exam: Present: normal inspection Neurological exam: Present: alert, CN II-XII intact Expanded Patient oriented to: Present: person, place Cranial nerves: EOM's Intact: Normal Eye Response: (4) open spontaneously Motor Response: (6) obeys commands Verbal Response: (4) confused conversation [place] Total: 14 Skin exam: Present: warm, dry, intact, normal color. Absent: rash Course Vital Signs 05/24/24 05/24/24 05/24/24 00:22 02:23 03:31 Temperature 97.7 F Pulse Rate 101 H 94 78 Respiratory 22 24 18 Rate Blood Pressure 108/56 122/79 121/64 O2 Sat by Pulse 94 L 94 L 91 L Oximetry Medical Decision Making - Medical Decision Making Was pt. sent in by a medical professional or institution (, PA, STONE SPLITTER, urgent care, hospital, or detention...) When possible be specific @ -No Did you speak to anyone other than the patient for history (EMS, parent, family, police, friend...)? What history was obtained from this source @ -spoke to the patient's at bedside who states the patient has been more weak and confused over the past week and had a fall earlier today. Did you review nursing and triage notes (agree or disagree)? Why? @ -I reviewed and agree with nursing and triage notes Were old charts reviewed (outside hosp., previous admission, EMS record, old EKG, old radiological studies, urgent care reports/EKG's, detention records)? Report findings @ -No old charts were reviewed Differential Diagnosis (chest pain, altered mental status, abdominal pain women, abdominal pain men, vaginal bleeding, weakness, fever, dyspnea, syncope, headache, dizziness, GI bleed, back pain, seizure, CVA, palpatations, mental health, musculoskeletal)? @ -Differential Weakness: Hypoglycemia, shock, sepsis, hyponatremia, anemia, infection, CA, ETOH, adverse medicine reaction, overdose, stroke, this is not meant to be an all-inclusive list. EKG interpreted by me (3pts min.). @ -Completed at 0041 sinus tachycardia with a ventricular rate of 105, NC interval 162, QRS 91, QTc 390. No acute signs of ischemia. X-rays interpreted by me (1pt min.). @ -Chest x-ray no acute cardiopulmonary process or disease CT interpreted by me (1pt min.). @ -CT of the brain without contrast negative for acute intracranial abnormality U/S interpreted by me (1pt. min.). @ -None done What testing was considered but not performed or refused? (CT, X-rays, U/S, labs)? Why? @ -None What meds were considered but not given or refused? Why? @ -None Did you discuss the management of the patient with other professionals (professionals i.e. , PA, STONE SPLITTER, lab, RT, psych nurse, social service worker, americanization teacher, teacher, chief wellness officer, mattress spring encaser)? Give summary @ -i spoke with the patient's PCP, Dr. Hanley, who is the patient's admitting physician in regard to the patient's presentation and laboratory studies conc erning for sepsis. recommend that patient has oncology and infectious disease on consult as well. he will be started on IV antibiotics. Was smoking cessation discussed for >3mins.? @ -No Was critical care preformed (if so, how long)? @ -No Were there social determinants of health that impacted care today? How? (Homelessness, low income, unemployed, alcoholism, drug addiction, transportation, low edu. Level, literacy, decrease access to med. care, long term, rehab)? @ -No Was there de-escalation of care discussed even if they declined (Discuss DNR or withdrawal of care, Hospice)? DNR status @ -No What co-morbidities impacted this encounter? (DM, HTN, Smoking, COPD, CAD, Cancer, CVA, ARF, Chemo, Hep., AIDS, mental health diagnosis, sleep apnea, morbid obesity)? @ -DM, COPD, liver cancer Was patient admitted / discharged? Hospital course, mention meds given and route, prescriptions, significant lab abnormalities, going to OR and other pertinent info. @ -Admitted. 69-year-old male with weakness. Patient presents via EMS with nasal cannula in place. Patient's oxygen saturation is in the low 90s and nasal cannula was removed and patient's oxygen and saturation continues to stay in the middle 90s that is normal for the patient as he does have COPD. Patient is mildly confused as he knows he is in the hospital however is unaware of why he is here, GCS of 15. Neurological exam with no acute deficits. Patient is noted to have dry mucous membranes. Patient is symptomatically treated with IV fluids pending laboratory results. Patient has a leukocytosis of 21 and a left shift with neutrophils of 18.7, he is acidotic with a CO2 of 18, elevated BUN of 114, creatinine 1.64, lactic acid 2.9. Patient is provided with additional 1 L fluid bolus and will be started on IV Rocephin as patient does meet sepsis protocol. troponin nonelevated less than 0.012, ammonia less than 9, COVID, flu, RSV negative. Patient will be admitted to internal medicine, Dr. Hanley, with infectious disease and oncology on consult for further evaluation of sepsis and liver cancer. patient and his are in agreement with admission as well. case discussed in detail with my attending, Dr. Hathaway. Undiagnosed new problem with uncertain prognosis? @ -No Drug Therapy requiring intensive monitoring for toxicity (Heparin, Nitro, Insulin, Cardizem)? @ -No Were any procedures done? @ -No Diagnosis/symptom? @ -weakness, confusion, sepsis, COPD exacerabation Acute, or Chronic, or Acute on Chronic? @ -acute Uncomplicated (without systemic symptoms) or Complicated (systemic symptoms)? @ -complicated Side effects of treatment? @ -No Exacerbation, Progression, or Severe Exacerbation? @ -No Poses a threat to life or bodily function? How? (Chest pain, [place], CA, pneumonia, PE, COPD, DKA, ARF, appy, cholecystitis, CVA, Diverticulitis, Homicidal, Suicidal, threat to staff... and all critical care pts) @ -yes - Lab Data Result diagrams: 05/24/24 00:57 05/24/24 02:20 Lab Results 05/24/24 05/24/24 05/24/24 Range/Units 00:57 00:57 00:57 WBC 21.0 H (3.8-10.6) k/uL RBC 4.13 L (4.30-5.90) m/uL Hgb 11.0 L (13.0-17.5) gm/dL Hct 36.3 L (39.0-53.0) % MCV 87.7 (80.0-100.0) fL MCH 26.6 (25.0-35.0) pg MCHC 30.3 L (31.0-37.0) g/dL RDW 16.4 H (11.5-15.5) % Plt Count 185 (150-450) k/uL MPV 14.4 Neutrophils % 89 % Lymphocytes % 4 % Monocytes % 6 % Eosinophils % 0 % Basophils % 0 % Neutrophils # 18.7 H (1.3-7.7) k/uL Lymphocytes # 0.8 L (1.0-4.8) k/uL Monocytes # 1.3 H (0-1.0) k/uL Eosinophils # 0.0 (0-0.7) k/uL Basophils # 0.0 (0-0.2) k/uL Manual Slide Review Performed Large Platelets Present Hypochromasia Marked Anisocytosis Slight PT 12.3 (10.0-12.5) sec INR 1.2 H (<1.2) APTT 22.5 (22.0-30.0) sec POC Glucose (mg/dL) (70-110) mg/dL POC Glu Morphology Teacher ID Lactic Ac Sepsis Rflx Plasma Lactic Acid Roberto 2.9 H* (0.7-2.0) mmol/L Ammonia <9 (<30) umol/L Troponin I (0.000-0.034) ng/mL Influenza Type A (PCR) (Not Detectd) Influenza Type B (PCR) (Not Detectd) RSV (PCR) (Not Detectd) SARS-CoV-2 (PCR) (Not Detectd) 05/24/24 05/24/24 05/24/24 Range/Units 00:57 01:05 01:36 WBC (3.8-10.6) k/uL RBC (4.30-5.90) m/uL Hgb (13.0-17.5) gm/dL Hct (39.0-53.0) % MCV (80.0-100.0) fL MCH (25.0-35.0) pg MCHC (31.0-37.0) g/dL RDW (11.5-15.5) % Plt Count (150-450) k/uL MPV Neutrophils % % Lymphocytes % % Monocytes % % Eosinophils % % Basophils % % Neutrophils # (1.3-7.7) k/uL Lymphocytes # (1.0-4.8) k/uL Monocytes # (0-1.0) k/uL Eosinophils # (0-0.7) k/uL Basophils # (0-0.2) k/uL Manual Slide Review Large Platelets Hypochromasia Anisocytosis PT (10.0-12.5) sec INR (<1.2) APTT (22.0-30.0) sec POC Glucose (mg/dL) (70-110) mg/dL POC Glu Morphology Teacher ID Lactic Ac Sepsis Rflx Y Plasma Lactic Acid Roberto (0.7-2.0) mmol/L Ammonia (<30) umol/L Troponin I <0.012 (0.000-0.034) ng/mL Influenza Type A (PCR) Not Detected (Not Detectd) Influenza Type B (PCR) Not Detected (Not Detectd) RSV (PCR) Not Detected (Not Detectd) SARS-CoV-2 (PCR) Not Detected (Not Detectd) 05/24/24 Range/Units 01:55 WBC (3.8-10.6) k/uL RBC (4.30-5.90) m/uL Hgb (13.0-17.5) gm/dL Hct (39.0-53.0) % MCV (80.0-100.0) fL MCH (25.0-35.0) pg MCHC (31.0-37.0) g/dL RDW (11.5-15.5) % Plt Count (150-450) k/uL MPV Neutrophils % % Lymphocytes % % Monocytes % % Eosinophils % % Basophils % % Neutrophils # (1.3-7.7) k/uL Lymphocytes # (1.0-4.8) k/uL Monocytes # (0-1.0) k/uL Eosinophils # (0-0.7) k/uL Basophils # (0-0.2) k/uL Manual Slide Review Large Platelets Hypochromasia Anisocytosis PT (10.0-12.5) sec INR (<1.2) APTT (22.0-30.0) sec POC Glucose (mg/dL) 411 H (70-110) mg/dL POC Glu Morphology Teacher ID Krista Jonas Lactic Ac Sepsis Rflx Plasma Lactic Acid Roberto (0.7-2.0) mmol/L Ammonia (<30) umol/L Troponin I (0.000-0.034) ng/mL Influenza Type A (PCR) (Not Detectd) Influenza Type B (PCR) (Not Detectd) RSV (PCR) (Not Detectd) SARS-CoV-2 (PCR) (Not Detectd) Disposition Clinical Impression: Sepsis, Weakness Disposition: ADMITTED IP TO THIS HOSP Condition: Serious Decision to Admit Reason: Admit from EC Decision Date: 05/24/24 Decision Time: 03:10
[2024-05-24] MEDS: SODIUM CHLORIDE 0.9% 1,000 ML IV STA ×2 (01:01→01:53)
[2024-05-24 01:19] LABS: Anisocytosis Slight; Basophils % (A) 0 %; Eosinophils % (A) 0 %; HCT 36.3 % (39.0-53.0); Hypochromasia Marked; Lymphocytes # (A) 0.8 k/uL (1.0-4.8); Lymphocytes % (A) 4 %; MCH 26.6 pg (25.0-35.0); MCHC 30.3 g/dL (31.0-37.0); MCV 87.7 fL (80.0-100.0); Mean Platelet Volume 14.4; Monocytes # (A) 1.3 k/uL (0-1.0); Monocytes % (A) 6 %; Neutrophils # (A) 18.7 k/uL (1.3-7.7); Neutrophils % (A) 89 %; Platelet Count 185 k/uL (150-450); RBC 4.13 m/uL (4.30-5.90); RDW 16.4 % (11.5-15.5)
[2024-05-24 01:36] LABS: Lactic Acid, Venous 2.9 mmol/L (0.7-2.0)
[2024-05-24 01:50] LABS: INR 1.2 (<1.2); Partial Thromboplastin Time 22.5 sec (22.0-30.0); Prothrombin Time 12.3 sec (10.0-12.5)
[2024-05-24 01:56] LABS: Glucose,Whole Blood 411 mg/dL (70-110)
[2024-05-24 02:07] LABS: Large Platelets Present
--- NOTE | 2024-05-24 02:10 | XR ---
EXAM: XR Chest, 2 Views CLINICAL HISTORY: ITS.REASON XR Reason: weakness, cough TECHNIQUE: Frontal and lateral views of the chest. COMPARISON: X-ray chest: 03/22/2024 FINDINGS: Lungs: No consolidation or focal lesions. Pleural space: No pleural effusion. No pneumothorax. Heart: No cardiomegaly. Median sternotomy. Mediastinum: Unremarkable. Normal mediastinal contour. Bones/joints: No acute fracture. Degenerative changes of the spine. Small metallic anchors over the right superior glenoid. Likely bilateral rotator cuff insufficiency IMPRESSION: No acute cardiopulmonary process evident. .
--- NOTE | 2024-05-24 02:13 | CT ---
EXAM: CT Head Without Intravenous Contrast CLINICAL HISTORY: Pt brought in by EMS due to fall, increase confusion and increase weakness. Pt has new dx of liver cancer. H/O DM, COPD, HTN, umbilical hernia, cholecystectomy, CABG, hernia repair, TECHNIQUE: Axial computed tomography images of the head/brain without intravenous contrast. CTDI is 49.2 mGy and DLP is 1168.4 mGy-cm. This CT exam was performed using one or more of the following dose reduction techniques: automated exposure control, adjustment of the mA and/or kV according to patient size, and/or use of iterative reconstruction technique. COMPARISON: None. FINDINGS: Motion-induced image degradation. Brain: There is no acute intracranial hemorrhage, mass-effect or midline shift noted. No abnormal extra-axial fluid collections seen. Moderate diffuse cerebral atrophy with widening of the extra-axial spaces and dilatation. There are areas of decreased attenuation within the periventricular/subcortical white matter, likely from chronic microvascular disease. Bones/joints: Unremarkable. No acute fracture. Soft tissues: Unremarkable. Sinuses: Unremarkable as visualized. No acute sinusitis. Moderate leftward nasal septal deviation. Mastoid air cells: Mild/moderate bilateral mastoiditis. IMPRESSION: No acute intracranial abnormality noted. Chronic involutional and ischemic changes of the brain. .
[2024-05-24 02:50] LABS: ALT 25 U/L (4-49); AST 47 U/L (17-59); African American GFR (CKD) 48 (>60 ml/min/1.73 sqM); Albumin 2.4 g/dL (3.5-5.0); Alkaline Phosphatase 517 U/L (38-126); Anion Gap 8 mmol/L; Calcium 7.4 mg/dL (8.4-10.2); Carbon Dioxide 18 mmol/L (22-30); Chloride 108 mmol/L (98-107); Glucose 376 mg/dL (74-99); Non-African American GFR(CKD) 42 (>60 ml/min/1.73 sqM); Phosphorus 4.7 mg/dL (2.5-4.5); Potassium 5.6 mmol/L (3.5-5.1); Sodium 134 mmol/L (137-145); Total Bilirubin 0.7 mg/dL (0.2-1.3); Total Protein 5.4 g/dL (6.3-8.2)
[2024-05-24 02:52] LABS: Blood Urea Nitrogen 114 mg/dL (9-20)
[2024-05-24 02:56] LABS: NT-Pro-B-Type Natriuretic Pept 969 pg/mL
[2024-05-24] MEDS ORDERED: NALOXONE 0.4 MG/ML 1 ML VIAL IV PRN (03:10)
[2024-05-24] MEDS: SODIUM CHLORIDE 0.9% 1,000 ML IV SCH (03:34)
[2024-05-24 04:33] LABS: Appearance,Urine Clear (Clear); Bilirubin,Urine Negative (Negative); Blood,Urine Negative (Negative); Color,Urine Light Yellow; Glucose,Urine (UA) 3+ (Negative); Ketones,Urine Negative (Negative); Leukocyte Esterase,Urine Negative (Negative); Nitrite,Urine Negative (Negative); Protein,Urine Negative (Negative); Specific Gravity,Urine 1.018 (1.001-1.035); Urobilinogen,Urine <2.0 mg/dL (<2.0)
[2024-05-24 05:10] LABS: Glucose,Whole Blood 209 mg/dL (70-110)
[2024-05-24] MEDS ORDERED: DEXTROSE 50% SYRINGE 50 ML IVP PRN ×2 (08:34)
[2024-05-24 09:16] LABS: Glucose,Whole Blood 284 mg/dL (70-110)
[2024-05-24] MEDS ORDERED: HYDROcodone/APAP 5-325MG 1 EACH TAB PO PRN (09:22)
[2024-05-24] MEDS: PANTOPRAZOLE 40 MG/10 ML VIAL IV SCH (09:23)
[2024-05-24] MEDS: METOPROLOL SUCCINATE (ER) 50 MG TAB.ER.24H PO SCH (09:23)
[2024-05-24] MEDS: NICOTINE 21MG/24HR PATCH TRANSDERM SCH (09:23)
[2024-05-24] MEDS: TAMSULOSIN 0.4 MG CAP.ER.24H PO SCH (09:23)
[2024-05-24] MEDS: INSULIN DETEMIR (LEVEMIR) 100 UNIT/ML SYR SQ SCH (10:38)
[2024-05-24] MEDS: NYSTATIN 100,000 UNIT/ML SUSP 500,000 UNIT/5 ML CUP PO SCH (10:38)
[2024-05-24] MEDS: PREGABALIN 100 MG CAP PO SCH (10:38)
[2024-05-24] MEDS: SYMBICORT 80-4.5 MCG INHALER INHALATION SCH (11:37)
[2024-05-24] MEDS: IPRATROPIUM-ALBUTEROL 3 ML NEB INHALATION SCH (11:43)
[2024-05-24 12:08] LABS: Glucose,Whole Blood 325 mg/dL (70-110)
[2024-05-24] MEDS: PREGABALIN 75 MG CAP PO SCH (12:27)
[2024-05-24] MEDS: INSULIN ASPART (NovoLOG) 100 UNIT/ML VIAL SQ SCH (13:09)
--- NOTE | 2024-05-24 13:15 | P.HPIM ---
History of Present Illness H&P Date: 05/24/24 Chief Complaint: Increased weakness, fall, confusion Is a 69-year-old gentleman with past medical history significant for recently reported diagnosis of liver cancer approximately 2 weeks ago, scheduled for PET scan tomorrow transported to the ER via EMS related to increased weakness, confusion and fall. Patient reports poor appetite, sore throat, loose congested cough, occasionally productive. Denies nausea, vomiting. Afebrile, WBC 21, lactic acid 2.9, 1.7, hemoglobin 11, platelets 185, INR 1.2. Sodium 134, potassium 5.6, bicarb 18, BUN 114, creatinine 1.64. Glucose 376, calcium 7.4, Phos 4.7 magnesium 2 alk phos 517, troponin negative x 1, ammonia less than 9, albumin 2.4. Viral studies negative. Brain CT reported no acute intracranial abnormality. Chest x-ray reported no acute cardiopulmonary process. EKG reported sinus tachycardia, Review of Systems ROS, unable to evaluate at this time, secondary to patient's current mental status. Past Medical History Past Medical History: Cancer, COPD, Diabetes Mellitus, GERD/Reflux, Hyperlipidemia, Hypertension, Liver Disease, Osteoarthritis (OA), Prostate Disorder, Sleep Apnea/CPAP/BIPAP Additional Past Medical History / Comment(s): Hx Hepatitis C, now resolved. Enlarged prostate/urinary frequency. No CPAP use. Umbilical Hernia. Liver Cancer History of Any Multi-Drug Resistant Organisms: None Reported Past Surgical History: Back Surgery, Cholecystectomy, Coronary Bypass/CABG, Hernia Repair Additional Past Surgical History / Comment(s): BILATERAL CORNEAL TRANSPLANT 2020. Fusion L1-L5 back, bilateral rotator cuff repairs, bilateral knee surgery, left wrist carpal tunnel surgery, aortic valve replacement, foot surgery, bilateral catarARACTS Past Anesthesia/Blood Transfusion Reactions: No Reported Reaction Past Psychological History: No Psychological Hx Reported Smoking Status: Current every day smoker Past Alcohol Use History: None Reported Past Drug Use History: None Reported - Past Family History Mother Family Medical History: Cancer Additional Family Medical History / Comment(s): breast Sister(s) Family Medical History: Cancer Additional Family Medical History / Comment(s): breast Medications and Allergies Home Medications Medication Instructions Recorded Confirmed Type Albuterol Inhaler [Ventolin Hfa 2 puff INHALATION RT-QID PRN 05/28/20 05/24/24 History Inhaler] Atorvastatin [Lipitor] 20 mg PO HS 05/28/20 05/24/24 History Metoprolol Succinate [Toprol XL] 50 mg PO QAM 05/28/20 05/24/24 History Pantoprazole Sodium 40 mg PO BID 05/28/20 05/24/24 History Tamsulosin [Flomax] 0.4 mg PO DAILY 05/28/20 05/24/24 History Lisinopril-Hctz 20-12.5 mg 1 tab PO DAILY 02/03/21 05/24/24 History [Zestoretic 20-12.5] Prednisolone Acetate/Pf 1 drop BOTH EYES Q2D 02/03/21 05/24/24 History [Prednisolone Acet 1% Eye Drop] Glimepiride [Amaryl] 4 mg PO DAILY 04/03/22 05/24/24 History Budesonide/Formoterol Fumarate 2 puff INHALATION RT-BID 05/24/24 05/24/24 History [Symbicort 80-4.5 Mcg Inhaler] Clobetasol Propionate [Clobex .05% 1 applic TOPICAL DAILY 05/24/24 05/24/24 History Shampoo] HYDROcodone/APAP 10-325MG [[place] 1 tab PO TID 05/24/24 05/24/24 History 10-325] LORazepam [Ativan] 0.5 mg PO BID PRN 05/24/24 05/24/24 History Metoclopramide [Reglan] 10 mg PO Q6H PRN 05/24/24 05/24/24 History Ondansetron [Zofran] 4 mg PO Q8HR PRN 05/24/24 05/24/24 History Pregabalin [Lyrica] 150 mg PO TID 05/24/24 05/24/24 History Tolterodine ER [Detrol LA] 2 mg PO DAILY 05/24/24 05/24/24 History amLODIPine [Norvasc] 5 mg PO DAILY 05/24/24 05/24/24 History busPIRone HCL 15 mg PO TID PRN 05/24/24 05/24/24 History lisinopriL 40 mg PO DAILY 05/24/24 05/24/24 History Allergies Allergy/AdvReac Type Severity Reaction Status Date / Time Interferons Allergy Anaphylaxis Verified 05/24/24 10:23 peginterferon ananda-2a Allergy Anaphylaxis Verified 05/24/24 10:23 [From Pegasys] riboflavin (vitamin B2) Allergy Anaphylaxis Verified 05/24/24 10:23 amitriptyline AdvReac Nausea & Verified 05/24/24 10:23 Vomiting & Diarrhea aspirin AdvReac RINGING IN Verified 05/24/24 10:23 EARS, DR STILL WANTS HIM TO TAKE IT. gabapentin [From Neurontin] AdvReac Unknown Verified 05/24/24 10:23 Latex, Natural Rubber AdvReac Rash/Hives Verified 05/24/24 10:23 Penicillins AdvReac Nausea & Verified 05/24/24 10:23 Vomiting sulfamethoxazole AdvReac Nausea & Verified 05/24/24 10:23 [From Bactrim] Vomiting trimethoprim [From Bactrim] AdvReac Nausea & Verified 05/24/24 10:23 Vomiting Physical Exam Vitals: Vital Signs Temp Pulse Resp BP Pulse Ox 05/24/24 07:30 98.3 F 92 17 122/67 92 L 05/24/24 06:05 97.7 F 90 20 135/74 94 L 05/24/24 04:31 97.7 F 92 20 120/73 94 L 05/24/24 04:06 89 19 153/74 95 05/24/24 03:31 78 18 121/64 91 L 05/24/24 02:23 94 24 122/79 94 L 05/24/24 00:22 97.7 F 101 H 22 108/56 94 L Intake and Output 05/23/24 05/24/24 05/24/24 22:59 06:59 14:59 Other: Weight 53.524 kg PHYSICAL EXAM: VITAL SIGNS: [Reviewed] GENERAL: Confused, alert to name HEENT: Conjunctivae normal. eyes normal. Oral thrush. NECK: No JVD. No thyroid enlargement. No LNs CARDIOVASCULAR: S1, S2 regular. No murmur RESPIRATION: Unlabored, rhonchorous with loose congested cough. ABDOMEN: Soft, nondistended, generalized diffuse tenderness throughout ,+BS LEGS: No edema. no swelling. PSYCHIATRY: Alert and oriented X3, mood and affect normal. NERVOUS SYSTEM: Cranial N 2-12 grossly normal. Moves all 4 limbs. Diffuse weakness No focal deficits. Strength and sensation grossly intact.. Skin: no lesions, no rash Joints: No active swelling. No inflammation. Lymphatic system. No LN neck axilla or groin. Results CBC & Chem 7: 05/25/24 06:00 05/25/24 06:00 Labs: Abnormal Lab Results - Last 24 Hours (Table) 05/24/24 05/24/24 05/24/24 Range/Units 00:57 00:57 00:57 WBC 21.0 H (3.8-10.6) k/uL RBC 4.13 L (4.30-5.90) m/uL Hgb 11.0 L (13.0-17.5) gm/dL Hct 36.3 L (39.0-53.0) % MCHC 30.3 L (31.0-37.0) g/dL RDW 16.4 H (11.5-15.5) % Neutrophils # 18.7 H (1.3-7.7) k/uL Lymphocytes # 0.8 L (1.0-4.8) k/uL Monocytes # 1.3 H (0-1.0) k/uL INR 1.2 H (<1.2) Sodium (137-145) mmol/L Potassium (3.5-5.1) mmol/L Chloride (98-107) mmol/L Carbon Dioxide (22-30) mmol/L BUN (9-20) mg/dL Creatinine (0.66-1.25) mg/dL Glucose (74-99) mg/dL POC Glucose (mg/dL) (70-110) mg/dL Plasma Lactic Acid Roberto 2.9 H* (0.7-2.0) mmol/L Calcium (8.4-10.2) mg/dL Phosphorus (2.5-4.5) mg/dL Alkaline Phosphatase (38-126) U/L Total Protein (6.3-8.2) g/dL Albumin (3.5-5.0) g/dL Urine Glucose (UA) (Negative) 05/24/24 05/24/24 05/24/24 Range/Units 01:55 02:20 04:06 WBC (3.8-10.6) k/uL RBC (4.30-5.90) m/uL Hgb (13.0-17.5) gm/dL Hct (39.0-53.0) % MCHC (31.0-37.0) g/dL RDW (11.5-15.5) % Neutrophils # (1.3-7.7) k/uL Lymphocytes # (1.0-4.8) k/uL Monocytes # (0-1.0) k/uL INR (<1.2) Sodium 134 L (137-145) mmol/L Potassium 5.6 H (3.5-5.1) mmol/L Chloride 108 H (98-107) mmol/L Carbon Dioxide 18 L (22-30) mmol/L BUN 114 H* (9-20) mg/dL Creatinine 1.64 H (0.66-1.25) mg/dL Glucose 376 H (74-99) mg/dL POC Glucose (mg/dL) 411 H (70-110) mg/dL Plasma Lactic Acid Roberto (0.7-2.0) mmol/L Calcium 7.4 L (8.4-10.2) mg/dL Phosphorus 4.7 H (2.5-4.5) mg/dL Alkaline Phosphatase 517 H (38-126) U/L Total Protein 5.4 L (6.3-8.2) g/dL Albumin 2.4 L (3.5-5.0) g/dL Urine Glucose (UA) 3+ H (Negative) 05/24/24 Range/Units 05:07 WBC (3.8-10.6) k/uL RBC (4.30-5.90) m/uL Hgb (13.0-17.5) gm/dL Hct (39.0-53.0) % MCHC (31.0-37.0) g/dL RDW (11.5-15.5) % Neutrophils # (1.3-7.7) k/uL Lymphocytes # (1.0-4.8) k/uL Monocytes # (0-1.0) k/uL INR (<1.2) Sodium (137-145) mmol/L Potassium (3.5-5.1) mmol/L Chloride (98-107) mmol/L Carbon Dioxide (22-30) mmol/L BUN (9-20) mg/dL Creatinine (0.66-1.25) mg/dL Glucose (74-99) mg/dL POC Glucose (mg/dL) 209 H (70-110) mg/dL Plasma Lactic Acid Roberto (0.7-2.0) mmol/L Calcium (8.4-10.2) mg/dL Phosphorus (2.5-4.5) mg/dL Alkaline Phosphatase (38-126) U/L Total Protein (6.3-8.2) g/dL Albumin (3.5-5.0) g/dL Urine Glucose (UA) (Negative) Assessment and Plan Assessment: Sepsis, etiology unclear, possibly SIRS Leukocytosis Lactic acidosis, resumed with IV fluid hydration Acute hypoxic respiratory failure Dehydration Acute on chronic renal failure, stage III, ATN, home medications Zestoretic/lisinopril on hold, Metabolic acidosis secondary to the above Generalized weakness status post fall Acute metabolic encephalopathy secondary to the above Recent diagnosis of liver cancer 3 weeks ago, scheduled for PET scan 101 History of alcohol abuse History of hepatitis C COPD Sleep apnea, wears CPAP Diabetes mellitus Gastroesophageal reflux disease Hypertension Hyperlipidemia BPH Bilateral corneal transplant 2020 OA, multiple joint surgeries, fusion L1- L5 Ongoing nicotine dependence Plan: Continue on current medication resume ,monitoring and symptomatic treatment. Avoid nephrotoxic agents including, hold Home medications-LOIDA inhibitor/diuretic. blood cultures pending, sputum culture ordered. IV fluid hydration, antibiotics. Nystatin swish and swallow ordered. infectious disease and oncology consults in place. CT of abdomen pelvis ordered. Nephrology consulted, bladder scan and renal ultrasound ordered. Prognosis guarded given multiple complex medical issues. The impression and plan of care has been dictated as directed. : I performed a history and examination of this patient, discussed the same with the dictator. I agree with the dictator's note ,documented as a scribe. Any additional findings or plans will be noted.
--- NOTE | 2024-05-24 13:30 | P.NPCON ---
History of Present Illness - Reason for Consult acute renal failure - History of Present Illness patient is a 69-year-old male who was admitted to the hospital with history of fall. He has had mental status changes and confusion. Recently diagnosed with liver cancer. Serum creatinine was 1.6 today. Previous creatinine was 1.2 on 12/05/2021. Blood pressure has been on the lower side with systolic at 10 8 mmHg on admission. No NSAIDs noted on home med list. Patient was on LOIDA inhibitor's and diuretics which are currently on hold. He is maintained on IV fluids. Past Medical History Past Medical History: Cancer, COPD, Diabetes Mellitus, GERD/Reflux, Hyperlipi demia, Hypertension, Liver Disease, Osteoarthritis (OA), Prostate Disorder, Sleep Apnea/CPAP/BIPAP Additional Past Medical History / Comment(s): Hx Hepatitis C, now resolved. Enlarged prostate/urinary frequency. No CPAP use. Umbilical Hernia. Liver Cancer History of Any Multi-Drug Resistant Organisms: None Reported Past Surgical History: Back Surgery, Cholecystectomy, Coronary Bypass/CABG, Hernia Repair Additional Past Surgical History / Comment(s): BILATERAL CORNEAL TRANSPLANT 2020. Fusion L1-L5 back, bilateral rotator cuff repairs, bilateral knee surgery, left wrist carpal tunnel surgery, aortic valve replacement, foot surgery, bilateral catarARACTS Past Anesthesia/Blood Transfusion Reactions: No Reported Reaction Past Psychological History: No Psychological Hx Reported Smoking Status: Current every day smoker Past Alcohol Use History: None Reported Past Drug Use History: None Reported - Past Family History Mother Family Medical History: Cancer Additional Family Medical History / Comment(s): breast Sister(s) Family Medical History: Cancer Additional Family Medical History / Comment(s): breast Medications and Allergies Home Medications Medication Instructions Recorded Confirmed Type Albuterol Inhaler [Ventolin Hfa 2 puff INHALATION RT-QID PRN 05/28/20 05/24/24 History Inhaler] Atorvastatin [Lipitor] 20 mg PO HS 05/28/20 05/24/24 History Metoprolol Succinate [Toprol XL] 50 mg PO QAM 05/28/20 05/24/24 History Pantoprazole Sodium 40 mg PO BID 05/28/20 05/24/24 History Tamsulosin [Flomax] 0.4 mg PO DAILY 05/28/20 05/24/24 History Lisinopril-Hctz 20-12.5 mg 1 tab PO DAILY 02/03/21 05/24/24 History [Zestoretic 20-12.5] Prednisolone Acetate/Pf 1 drop BOTH EYES Q2D 02/03/21 05/24/24 History [Prednisolone Acet 1% Eye Drop] Glimepiride [Amaryl] 4 mg PO DAILY 04/03/22 05/24/24 History Budesonide/Formoterol Fumarate 2 puff INHALATION RT-BID 05/24/24 05/24/24 History [Symbicort 80-4.5 Mcg Inhaler] Clobetasol Propionate [Clobex .05% 1 applic TOPICAL DAILY 05/24/24 05/24/24 History Shampoo] HYDROcodone/APAP 10-325MG [[place] 1 tab PO TID 05/24/24 05/24/24 History 10-325] LORazepam [Ativan] 0.5 mg PO BID PRN 05/24/24 05/24/24 History Metoclopramide [Reglan] 10 mg PO Q6H PRN 05/24/24 05/24/24 History Ondansetron [Zofran] 4 mg PO Q8HR PRN 05/24/24 05/24/24 History Pregabalin [Lyrica] 150 mg PO TID 05/24/24 05/24/24 History Tolterodine ER [Detrol LA] 2 mg PO DAILY 05/24/24 05/24/24 History amLODIPine [Norvasc] 5 mg PO DAILY 05/24/24 05/24/24 History busPIRone HCL 15 mg PO TID PRN 05/24/24 05/24/24 History lisinopriL 40 mg PO DAILY 05/24/24 05/24/24 History Allergies Allergy/AdvReac Type Severity Reaction Status Date / Time Interferons Allergy Anaphylaxis Verified 05/24/24 10:23 peginterferon ananda-2a Allergy Anaphylaxis Verified 05/24/24 10:23 [From Pegasys] riboflavin (vitamin B2) Allergy Anaphylaxis Verified 05/24/24 10:23 amitriptyline AdvReac Nausea & Verified 05/24/24 10:23 Vomiting & Diarrhea aspirin AdvReac RINGING IN Verified 05/24/24 10:23 EARS, DR STILL WANTS HIM TO TAKE IT. gabapentin [From Neurontin] AdvReac Unknown Verified 05/24/24 10:23 Latex, Natural Rubber AdvReac Rash/Hives Verified 05/24/24 10:23 Penicillins AdvReac Nausea & Verified 05/24/24 10:23 Vomiting sulfamethoxazole AdvReac Nausea & Verified 05/24/24 10:23 [From Bactrim] Vomiting trimethoprim [From Bactrim] AdvReac Nausea & Verified 05/24/24 10:23 Vomiting Physical Exam Vitals: Vital Signs Temp Pulse Pulse Resp BP BP Pulse Ox 05/24/24 13:05 98.0 F 78 16 109/71 92 L 05/24/24 11:54 75 18 05/24/24 11:45 74 18 05/24/24 08:00 98.3 F 91 16 136/77 92 L 05/24/24 07:30 98.3 F 92 17 122/67 92 L 05/24/24 06:05 97.7 F 90 20 135/74 94 L 05/24/24 04:31 97.7 F 92 20 120/73 94 L 05/24/24 04:06 89 19 153/74 95 05/24/24 03:31 78 18 121/64 91 L 05/24/24 02:23 94 24 122/79 94 L 05/24/24 00:22 97.7 F 101 H 22 108/56 94 L Intake and Output 05/23/24 05/24/24 05/24/24 22:59 06:59 14:59 Intake Total 118 Balance 118 Intake: Oral 118 Other: Weight 53.524 kg 53.524 kg patient is awake, comfortable, no acute distress. Examination of the heart S1 and S2 Examination of the lungs bilateral breath sounds are heard Abdomen is soft nontender Examination of lower extremities shows no significant edema Results - Lab Results Most recent lab results Calcium 7.4 mg/dL (8.4-10.2) L 05/24/24 02:20 Phosphorus 4.7 mg/dL (2.5-4.5) H 05/24/24 02:20 Magnesium 2.0 mg/dL (1.6-2.3) 05/24/24 02:20 05/24/24 00:57 05/24/24 02:20 Assessment and Plan Assessment: 1. Acute kidney injury, ATN, rule out urine retention. Maintained on IV fluids. UA is completely benign. Check ultrasound of the kidneys. LOIDA inhibitor's on hold. 2. history of fall 3. Mental status changes 4. Hyperkalemia associated with acute kidney injury in the setting of use of A CE inhibitor's. Rule out urine retention 5. Non-gap metabolic acidosis secondary to acute kidney injury. No history of diarrhea. Plan: continue with IV fluids Check bladder scan Repeat labs in a.m. Avoid nephrotoxic agents Continue to hold diuretics and LOIDA inhibitor's. Check ultrasound of the kidneys. Next Thank you for the consultation. We will continue to follow the patient with you during his hospitalization.
[2024-05-24] MEDS: IOPAMIDOL CONTRAST (ORAL USE) VIAL PO PRN (16:15)
--- NOTE | 2024-05-24 16:17 | US ---
EXAMINATION TYPE: US abd limited kidneys/bladder DATE OF EXAM: 05/24/2024 COMPARISON: 03/20/2024. CLINICAL INDICATION: Male, 69 years old with history of evaluate lesions vs abscesses, s/p abx tx; Se psis, recent liver CA diagnosis TECHNIQUE: Grayscale and color Doppler imaging of the right upper quadrant including the kidneys and urinary bladder. FINDINGS: EXAM MEASUREMENTS: Liver Length: 18.3 cm CBD: 0.4 cm Right Kidney: 12.8 x 6.0 x 5.5 cm Left Kidney: 11.7 x 5.3 x 4.4 cm Pancreas: Obscured by bowel gas Liver: Enlarged, heterogeneous with innumerable masses scattered throughout liver parenchyma Gallbladder: Surgically absent CBD: wnl Right Kidney: No evidence of hydro, lower pole gassed out Left Kidney: No evidence of hydro Bladder: wnl Bilateral Jets Seen No Scant amount of ascites IMPRESSION: 1. Enlarged heterogenous liver scattered masses compatible with diagnosis of liver cancer. Attention follow-up CT is ordered. 2. Small ascites. [facility], , 05/24/2024 4:15 PM
[2024-05-24] MEDS: HYDROcodone/APAP 10-325MG 1 EACH TAB PO SCH (16:22)
--- NOTE | 2024-05-24 16:37 | P.CONS ---
History of Present Illness - Reason for Consult Consult date: 05/24/24 hepatic cancer Requesting physician: Corina Welch - Chief Complaint weakness - History of Present Illness Patient is a 69 year old male with multiple medical problems. He has been evaluated by Dr. Jensen in the past for thrombocytopenia. The patient was found to have a mildly low platelet counts [id number], on CBC done on 05/18/23. Hemoglobin was 12.5, and WBC normal. The patient was also concerned about easy bruising over the prior year. This was affecting his distal upper extremities. He was therefore referred here for further evaluation and recommendations He denied any prior history of blood related problems, clotting disorders or malignancies. He states that he was a heavy alcohol user, and also use illicit drugs until about age 29 when he quit. He is a current smoker, although he had quit for about 15 years in the interim. He started smoking in his teens. He has a history of hepatitis C, and was treated for the same 2, most recently in 2020, with remission. According to the patient he is continuing in remission. He states that liver biopsy done several years ago was "pink" ( presumably he means not cirrhotic). The patient denies any unusual bleeding from oral/nasal/GI or passages. He denies any bruising on other parts of the body. He does not take any antiplatelet therapy or anticoagulation, but is on gabapentin. He also has long-standing diabetes and hypertension, and required aortic valve replacement 5 years ago. It was felt that the mild from cytopenia was most likely due to her prior history of heavy alcohol use and/or some degree of chronic liver disease. Patient's additional workup for both these conditions was essentially negative for other causes, essentially confirming the above clinical impression. Ultrasound showed some mild hepatomegaly without any discrete parenchymal lesions. The patient was therefore advised that his mild thrombo-cytopenia is most likely due to a degree of chronic liver disease. More recently patient was being followed for possible liver lesions vs abscesses. Plan for for patient to complete course of antibiotics with subsequent f/u imaging to revaluate. He is scheduled for PET CT on 05/25/24. At todays visit, HPI is limited due to acute condition. Patient is answering questions, but he is somewhat confused, and not answering all questions appropriately. Per review of ER noted pt presented for progressing weakness, cough, and sore throat. Pt states he has had decreased oral intake and endorses dysphagia. CT brain was negative for acute intracranial processes. Chest x-ray was negative for acute cardiopulmonary processes. Viral panel negative. UA negative for UTI. Patient is afebrile, HDS. Labs reviewed, WBC 21.0, hemoglobin 11.0, platelets 185,000. GFR 1.64, creatinine 1.64, GFR 42. Glucose was elevated on admit at 411. ALP 517, AST 47, ALT 25, bilirubin 0.7. BNP 969. Troponin negative. Ammonia < 9. Blood cultures pending. ID consulted for concern of sepsis Review of Systems 10 point ROS is negative except as stated in the HPI Past Medical History Past Medical History: Cancer, COPD, Diabetes Mellitus, GERD/Reflux, Hyperlipidemia, Hypertension, Liver Disease, Osteoarthritis (OA), Prostate Disorder, Sleep Apnea/CPAP/BIPAP Additional Past Medical History / Comment(s): Hx Hepatitis C, now resolved. Enlarged prostate/urinary frequency. No CPAP use. Umbilical Hernia. Liver Cancer History of Any Multi-Drug Resistant Organisms: None Reported Past Surgical History: Back Surgery, Cholecystectomy, Coronary Bypass/CABG, Hernia Repair Additional Past Surgical History / Comment(s): BILATERAL CORNEAL TRANSPLANT 2020. Fusion L1-L5 back, bilateral rotator cuff repairs, bilateral knee surgery, left wrist carpal tunnel surgery, aortic valve replacement, foot surgery, bilateral catarARACTS Past Anesthesia/Blood Transfusion Reactions: No Reported Reaction Past Psychological History: No Psychological Hx Reported Smoking Status: Current every day smoker Past Alcohol Use History: None Reported Past Drug Use History: None Reported - Past Family History Mother Family Medical History: Cancer Additional Family Medical History / Comment(s): breast Sister(s) Family Medical History: Cancer Additional Family Medical History / Comment(s): breast Medications and Allergies Home Medications Medication Instructions Recorded Confirmed Type Albuterol Inhaler [Ventolin Hfa 2 puff INHALATION RT-QID PRN 05/28/20 05/24/24 History Inhaler] Atorvastatin [Lipitor] 20 mg PO HS 05/28/20 05/24/24 History Metoprolol Succinate [Toprol XL] 50 mg PO QAM 05/28/20 05/24/24 History Pantoprazole Sodium 40 mg PO BID 05/28/20 05/24/24 History Tamsulosin [Flomax] 0.4 mg PO DAILY 05/28/20 05/24/24 History Lisinopril-Hctz 20-12.5 mg 1 tab PO DAILY 02/03/21 05/24/24 History [Zestoretic 20-12.5] Prednisolone Acetate/Pf 1 drop BOTH EYES Q2D 02/03/21 05/24/24 History [Prednisolone Acet 1% Eye Drop] Glimepiride [Amaryl] 4 mg PO DAILY 04/03/22 05/24/24 History Budesonide/Formoterol Fumarate 2 puff INHALATION RT-BID 05/24/24 05/24/24 History [Symbicort 80-4.5 Mcg Inhaler] Clobetasol Propionate [Clobex .05% 1 applic TOPICAL DAILY 05/24/24 05/24/24 History Shampoo] HYDROcodone/APAP 10-325MG [[place] 1 tab PO TID 05/24/24 05/24/24 History 10-325] LORazepam [Ativan] 0.5 mg PO BID PRN 05/24/24 05/24/24 History Metoclopramide [Reglan] 10 mg PO Q6H PRN 05/24/24 05/24/24 History Ondansetron [Zofran] 4 mg PO Q8HR PRN 05/24/24 05/24/24 History Pregabalin [Lyrica] 150 mg PO TID 05/24/24 05/24/24 History Tolterodine ER [Detrol LA] 2 mg PO DAILY 05/24/24 05/24/24 History amLODIPine [Norvasc] 5 mg PO DAILY 05/24/24 05/24/24 History busPIRone HCL 15 mg PO TID PRN 05/24/24 05/24/24 History lisinopriL 40 mg PO DAILY 05/24/24 05/24/24 History Allergies Allergy/AdvReac Type Severity Reaction Status Date / Time Interferons Allergy Anaphylaxis Verified 05/24/24 10:23 peginterferon ananda-2a Allergy Anaphylaxis Verified 05/24/24 10:23 [From Pegasys] riboflavin (vitamin B2) Allergy Anaphylaxis Verified 05/24/24 10:23 amitriptyline AdvReac Nausea & Verified 05/24/24 10:23 Vomiting & Diarrhea aspirin AdvReac RINGING IN Verified 05/24/24 10:23 EARS, DR STILL WANTS HIM TO TAKE IT. gabapentin [From Neurontin] AdvReac Unknown Verified 05/24/24 10:23 Latex, Natural Rubber AdvReac Rash/Hives Verified 05/24/24 10:23 Penicillins AdvReac Nausea & Verified 05/24/24 10:23 Vomiting sulfamethoxazole AdvReac Nausea & Verified 05/24/24 10:23 [From Bactrim] Vomiting trimethoprim [From Bactrim] AdvReac Nausea & Verified 05/24/24 10:23 Vomiting Physical Exam Vitals: Vital Signs Temp Pulse Pulse Resp BP BP Pulse Ox 05/24/24 08:00 98.3 F 91 16 136/77 92 L 05/24/24 07:30 98.3 F 92 17 122/67 92 L 05/24/24 06:05 97.7 F 90 20 135/74 94 L 05/24/24 04:31 97.7 F 92 20 120/73 94 L 05/24/24 04:06 89 19 153/74 95 05/24/24 03:31 78 18 121/64 91 L 05/24/24 02:23 94 24 122/79 94 L 05/24/24 00:22 97.7 F 101 H 22 108/56 94 L Intake and Output 05/23/24 05/24/24 05/24/24 22:59 06:59 14:59 Intake Total 118 Balance 118 Intake: Oral 118 Other: Weight 53.524 kg 53.524 kg - Constitutional General appearance: no acute distress - EENT Eyes: anicteric sclerae, EOMI ENT: hearing grossly normal - Neck Neck: no lymphadenopathy - Respiratory Respiratory: bilateral: CTA - Cardiovascular Rhythm: regular - Gastrointestinal General gastrointestinal: soft, no tenderness - Integumentary Integumentary: no cyanotic - Neurologic right sided facial droop - Musculoskeletal Musculoskeletal: generalized weakness - Psychiatric A&Ox 2 Results CBC & Chem 7: 05/24/24 00:57 05/24/24 02:20 Labs: Abnormal Lab Results - Last 24 Hours (Table) 05/24/24 05/24/24 05/24/24 Range/Units 00:57 00:57 00:57 WBC 21.0 H (3.8-10.6) k/uL RBC 4.13 L (4.30-5.90) m/uL Hgb 11.0 L (13.0-17.5) gm/dL Hct 36.3 L (39.0-53.0) % MCHC 30.3 L (31.0-37.0) g/dL RDW 16.4 H (11.5-15.5) % Neutrophils # 18.7 H (1.3-7.7) k/uL Lymphocytes # 0.8 L (1.0-4.8) k/uL Monocytes # 1.3 H (0-1.0) k/uL INR 1.2 H (<1.2) Sodium (137-145) mmol/L Potassium (3.5-5.1) mmol/L Chloride (98-107) mmol/L Carbon Dioxide (22-30) mmol/L BUN (9-20) mg/dL Creatinine (0.66-1.25) mg/dL Glucose (74-99) mg/dL POC Glucose (mg/dL) (70-110) mg/dL Plasma Lactic Acid Roberto 2.9 H* (0.7-2.0) mmol/L Calcium (8.4-10.2) mg/dL Phosphorus (2.5-4.5) mg/dL Alkaline Phosphatase (38-126) U/L Total Protein (6.3-8.2) g/dL Albumin (3.5-5.0) g/dL Urine Glucose (UA) (Negative) 05/24/24 05/24/24 05/24/24 Range/Units 01:55 02:20 04:06 WBC (3.8-10.6) k/uL RBC (4.30-5.90) m/uL Hgb (13.0-17.5) gm/dL Hct (39.0-53.0) % MCHC (31.0-37.0) g/dL RDW (11.5-15.5) % Neutrophils # (1.3-7.7) k/uL Lymphocytes # (1.0-4.8) k/uL Monocytes # (0-1.0) k/uL INR (<1.2) Sodium 134 L (137-145) mmol/L Potassium 5.6 H (3.5-5.1) mmol/L Chloride 108 H (98-107) mmol/L Carbon Dioxide 18 L (22-30) mmol/L BUN 114 H* (9-20) mg/dL Creatinine 1.64 H (0.66-1.25) mg/dL Glucose 376 H (74-99) mg/dL POC Glucose (mg/dL) 411 H (70-110) mg/dL Plasma Lactic Acid Roberto (0.7-2.0) mmol/L Calcium 7.4 L (8.4-10.2) mg/dL Phosphorus 4.7 H (2.5-4.5) mg/dL Alkaline Phosphatase 517 H (38-126) U/L Total Protein 5.4 L (6.3-8.2) g/dL Albumin 2.4 L (3.5-5.0) g/dL Urine Glucose (UA) 3+ H (Negative) 05/24/24 05/24/24 Range/Units 05:07 09:15 WBC (3.8-10.6) k/uL RBC (4.30-5.90) m/uL Hgb (13.0-17.5) gm/dL Hct (39.0-53.0) % MCHC (31.0-37.0) g/dL RDW (11.5-15.5) % Neutrophils # (1.3-7.7) k/uL Lymphocytes # (1.0-4.8) k/uL Monocytes # (0-1.0) k/uL INR (<1.2) Sodium (137-145) mmol/L Potassium (3.5-5.1) mmol/L Chloride (98-107) mmol/L Carbon Dioxide (22-30) mmol/L BUN (9-20) mg/dL Creatinine (0.66-1.25) mg/dL Glucose (74-99) mg/dL POC Glucose (mg/dL) 209 H 284 H (70-110) mg/dL Plasma Lactic Acid Roberto (0.7-2.0) mmol/L Calcium (8.4-10.2) mg/dL Phosphorus (2.5-4.5) mg/dL Alkaline Phosphatase (38-126) U/L Total Protein (6.3-8.2) g/dL Albumin (3.5-5.0) g/dL Urine Glucose (UA) (Negative) Chest x-ray: report reviewed CT Scan - head: report reviewed Assessment and Plan (1) Weakness Current Visit: Yes Status: Acute Priority: High Code(s): R53.1 - WEAKNESS SNOMED Code(s): 21678804 Plan: Weakness, sepsis: Presented for progressing weakness, cough, and sore throat and was admitted for sepsis -CT brain w/o was negative for acute intracranial processes. Chest x-ray was negative for acute cardiopulmonary processes. Viral panel negative. UA negative for UTI. blood cultures pending Patient is afebrile, HDS. -WBC 21.0, hemoglobin 11.0, platelets 185,000. GFR 1.64, creatinine 1.64, GFR 42. Glucose was elevated on admit at 411. ALP 517, AST 47, ALT 25, bilirubin 0.7. Ammonia < 9 -ID consulted -No family at bedside, unsure if there has been acute changes in mentation prior to admission or previous history of CVA. Spoke with nursing, they have been trying to reach spouse to further clarify. If noted symptoms are acute, will need further imaging of brain, and may benefit from neuro consult. Defer the same to admitting team Liver abscess vs lesions: -Patient was being followed for evaluation of liver lesions vs abscesses. Troy t does NOT have a confirmed diagnosis of liver cancer. Plan was for patient to complete course of antibiotics with subsequent f/u imaging to revaluate. He was scheduled for liver MRI, however PET CT was ordered by his PCP and is scheduled for 05/25/24, which unfortunately will be missed due to hospitalization -Will obtain liver US to further evaluate, pending results may need to obtain Liver MRI Doctor attests: I performed a history and physical examination of this patient, developed impression and plan of care. Discussed with dictator. I agree with dictators note, documented as a scribe.
[2024-05-24 17:02] LABS: Glucose,Whole Blood 159 mg/dL (70-110)
--- NOTE | 2024-05-24 18:16 | CT ---
EXAMINATION TYPE: CT abdomen pelvis wo con CT DLP: 863.4 mGycm, Automated exposure control for dose reduction was used. DATE OF EXAM: 05/24/2024 6:02 PM COMPARISON: CT abdomen pelvis most recent from 12/05/2021, ultrasound age today CLINICAL INDICATION: Male, 69 years old with history of abd pain , tender right upper quadrant; abd p ain , tender right upper quardant TECHNIQUE: Axial CT abdomen pelvis wo con;Sagittal and coronal reformats were created on a separate workstation. Contrast used: mL of , (none if empty) Oral contrast used: with Oral Contrast (none if empty) FINDINGS: LOWER CHEST: Unremarkable mitral valve annular calcifications. Streaky atelectasis in the lung bases. ABDOMEN LIVER: Innumerable masses throughout the liver which are poorly evaluated on this noncontrast exam. GALLBLADDER AND BILE DUCTS: The gallbladder is surgically absent. PANCREAS: Unremarkable. SPLEEN: Unremarkable. ADRENAL GLANDS: Unremarkable. KIDNEYS AND URETERS: No evidence of hydronephrosis or renal calculus. The ureters are unremarkable. PELVIS BLADDER: Unremarkable REPRODUCTIVE: Unremarkable. ABDOMEN & PELVIS STOMACH AND BOWEL: Scattered colonic diverticula. No evidence of bowel obstruction. PERITONEUM/RETROPERITONEUM: No evidence of pneumoperitoneum. Trace amount of fluid in Morison's pouch . VASCULATURE: No evidence of aortic aneurysm. MUSCULOSKELETAL: No acute osseous abnormalities, postsurgical changes of the spine. There is at least one fracture screw on the left at L2. Remainder of the hardware appears intact.e LYMPH NODES: Gastrohepatic ligament lymph node measuring up to 11 mm concerning for metastatic diseas e, findings new from prior. SOFT TISSUE/ABDOMINAL WALL: Unremarkable IMPRESSION: 1. Innumerable hepatic masses poorly visualized on this noncontrast exam. Consider tissue sampling i f not already performed. Findings compatible with history of malignancy reported on ultrasound. 2. Prominent gastric hepatic ligament lymph nodes concerning for malignancy until proven otherwise. 3. Fractured left L2 pedicle screw. [facility], , 05/24/2024 6:13 PM
[2024-05-24 19:54] LABS: Glucose,Whole Blood 126 mg/dL (70-110)
[2024-05-25] MEDS: ACETAMINOPHEN TAB 325 MG TAB PO PRN (03:37)
[2024-05-25 06:54] LABS: Glucose,Whole Blood 100 mg/dL (70-110)
[2024-05-25 08:44] LABS: ALT 37 U/L (10-49); AST 104 U/L (14-35); Albumin 2.3 g/dL (3.8-4.9); Albumin/Globulin Ratio 0.77 Ratio (1.60-3.17); Alkaline Phosphatase 701 U/L (41-126); BUN/Creat Ratio 65.75 Ratio (12.00-20.00); Basophils # (A) 0.01 X 10*3/uL (0.00-0.10); Basophils % (A) 0.1 %; Blood Urea Nitrogen 78.9 mg/dL (9.0-27.0); Calcium 7.8 mg/dL (8.7-10.3); Carbon Dioxide 20.7 mmol/L (21.6-31.8); Chloride 106 mmol/L (96-109); Eosinophils # (A) 0.06 X 10*3/uL (0.04-0.35); Eosinophils % (A) 0.4 %; Glucose 81 mg/dL (70-110); HCT 31.3 % (39.6-50.0); HGB 9.6 g/dL (13.0-17.0); Lymphocytes # (A) 0.83 X 10*3/uL (0.90-5.00); Lymphocytes % (A) 5.3 %; MCH 25.3 pg (27.0-32.0); MCHC 30.7 g/dL (32.0-37.0); MCV 82.4 FL (80.0-97.0); Monocytes # (A) 0.69 X 10*3/uL (0.20-1.00); Monocytes % (A) 4.4 %; NRBC Per 100 WBC 0 X 10*3/uL (0.00-0.01); Neutrophils # (A) 13.94 X 10*3/uL (1.80-7.70); Neutrophils % (A) 88.8 %; Platelet Count 147 X 10*3/uL (140-440); Potassium 5.2 mmol/L (3.5-5.5); RDW 17.4 % (11.5-14.5); Sodium 137 mmol/L (135-145); Total Bilirubin 0.4 mg/dL (0.3-1.2); Total Protein 5.3 g/dL (6.2-8.2); WBC 15.68 X 10*3/uL (4.50-10.00)
--- NOTE | 2024-05-25 08:53 | P.CONS ---
History of Present Illness - Reason for Consult Consult date: 05/24/24 Sepsis Requesting physician: Corina Welch - Chief Complaint Weakness decreased appetite x few days - History of Present Illness Patient is a 69-year-old male with a past medical history significant for diabetes mellitus COPD hypertension hyperlipidemia osteoarthritis hepatitis C has been diagnosed with liver cancer approximately 2 weeks ago patient has been brought to the hospital for evaluation of increased weakness confusion and fall patient denies high-grade fever or any chills and no fever has been recorded on presentation the hospital was subsequently patient denies having any URI symptoms denies having any chest pain or shortness of he did have occasional cough has been complaining of some abdominal discomfort to the right upper quadrant area mostly dull aching without radiation denies any nausea or vomiting did have decreased appetite patient on presentation to the hospital was afebrile and no fever have been recorded subsequently patient was nontachycardic hypotensive or hypoxic and no need for supplemental oxygen patient did have elevated white count 21,000 with a left shift BUN and creatinine has been elevated liver enzymes normal except alkaline phos was 517 urine has been negative influenza RSV COVID testing was negative patient did have a chest x-ray no acute cardiopulmonary disease process patient has been admitted to hospital infectious disease was consulted for possible sepsis Review of Systems Positive point and negatives has been mentioned in the HPI, complete review of systems was performed and all other systems are negative Past Medical History Past Medical History: Cancer, COPD, Diabetes Mellitus, GERD/Reflux, Hyperlipidemia, Hypertension, Liver Disease, Osteoarthritis (OA), Prostate Disorder, Sleep Apnea/CPAP/BIPAP Additional Past Medical History / Comment(s): Hx Hepatitis C, now resolved. Enlarged prostate/urinary frequency. No CPAP use. Umbilical Hernia. Liver Cancer History of Any Multi-Drug Resistant Organisms: None Reported Past Surgical History: Back Surgery, Cholecystectomy, Coronary Bypass/CABG, Hernia Repair Additional Past Surgical History / Comment(s): BILATERAL CORNEAL TRANSPLANT 2020. Fusion L1-L5 back, bilateral rotator cuff repairs, bilateral knee surgery, left wrist carpal tunnel surgery, aortic valve replacement, foot surgery, bilateral catarARACTS Past Anesthesia/Blood Transfusion Reactions: No Reported Reaction Past Psychological History: No Psychological Hx Reported Smoking Status: Current every day smoker Past Alcohol Use History: None Reported Past Drug Use History: None Reported - Past Family History Mother Family Medical History: Cancer Additional Family Medical History / Comment(s): breast Sister(s) Family Medical History: Cancer Additional Family Medical History / Comment(s): breast Medications and Allergies Home Medications Medication Instructions Recorded Confirmed Type Albuterol Inhaler [Ventolin Hfa 2 puff INHALATION RT-QID PRN 05/28/20 05/24/24 History Inhaler] Atorvastatin [Lipitor] 20 mg PO HS 05/28/20 05/24/24 History Metoprolol Succinate [Toprol XL] 50 mg PO QAM 05/28/20 05/24/24 History Pantoprazole Sodium 40 mg PO BID 05/28/20 05/24/24 History Tamsulosin [Flomax] 0.4 mg PO DAILY 05/28/20 05/24/24 History Lisinopril-Hctz 20-12.5 mg 1 tab PO DAILY 02/03/21 05/24/24 History [Zestoretic 20-12.5] Prednisolone Acetate/Pf 1 drop BOTH EYES Q2D 02/03/21 05/24/24 History [Prednisolone Acet 1% Eye Drop] Glimepiride [Amaryl] 4 mg PO DAILY 04/03/22 05/24/24 History Budesonide/Formoterol Fumarate 2 puff INHALATION RT-BID 05/24/24 05/24/24 History [Symbicort 80-4.5 Mcg Inhaler] Clobetasol Propionate [Clobex .05% 1 applic TOPICAL DAILY 05/24/24 05/24/24 History Shampoo] HYDROcodone/APAP 10-325MG [[place] 1 tab PO TID 05/24/24 05/24/24 History 10-325] LORazepam [Ativan] 0.5 mg PO BID PRN 05/24/24 05/24/24 History Metoclopramide [Reglan] 10 mg PO Q6H PRN 05/24/24 05/24/24 History Ondansetron [Zofran] 4 mg PO Q8HR PRN 05/24/24 05/24/24 History Pregabalin [Lyrica] 150 mg PO TID 05/24/24 05/24/24 History Tolterodine ER [Detrol LA] 2 mg PO DAILY 05/24/24 05/24/24 History amLODIPine [Norvasc] 5 mg PO DAILY 05/24/24 05/24/24 History busPIRone HCL 15 mg PO TID PRN 05/24/24 05/24/24 History lisinopriL 40 mg PO DAILY 05/24/24 05/24/24 History Allergies Allergy/AdvReac Type Severity Reaction Status Date / Time Interferons Allergy Anaphylaxis Verified 05/24/24 10:23 peginterferon ananda-2a Allergy Anaphylaxis Verified 05/24/24 10:23 [From Pegasys] riboflavin (vitamin B2) Allergy Anaphylaxis Verified 05/24/24 10:23 amitriptyline AdvReac Nausea & Verified 05/24/24 10:23 Vomiting & Diarrhea aspirin AdvReac RINGING IN Verified 05/24/24 10:23 EARS, DR STILL WANTS HIM TO TAKE IT. gabapentin [From Neurontin] AdvReac Unknown Verified 05/24/24 10:23 Latex, Natural Rubber AdvReac Rash/Hives Verified 05/24/24 10:23 Penicillins AdvReac Nausea & Verified 05/24/24 10:23 Vomiting sulfamethoxazole AdvReac Nausea & Verified 05/24/24 10:23 [From Bactrim] Vomiting trimethoprim [From Bactrim] AdvReac Nausea & Verified 05/24/24 10:23 Vomiting Physical Exam Vitals: Vital Signs Temp Pulse Pulse Resp BP BP Pulse Ox 05/24/24 08:00 98.3 F 91 16 136/77 92 L 05/24/24 07:30 98.3 F 92 17 122/67 92 L 05/24/24 06:05 97.7 F 90 20 135/74 94 L 05/24/24 04:31 97.7 F 92 20 120/73 94 L 05/24/24 04:06 89 19 153/74 95 05/24/24 03:31 78 18 121/64 91 L 05/24/24 02:23 94 24 122/79 94 L 05/24/24 00:22 97.7 F 101 H 22 108/56 94 L Intake and Output 05/23/24 05/24/24 05/24/24 22:59 06:59 14:59 Intake Total 118 Balance 118 Intake: Oral 118 Other: Weight 53.524 kg GENERAL DESCRIPTION: Elderly male lying in bed, no distress. No tachypnea or accessory muscle of respiration use. HEENT: Shows Pallor , no scleral icterus. Oral mucous membrane is dry. No pharyngeal erythema or thrush NECK: Trachea central, no thyromegaly. LUNGS: Unlabored breathing. Clear to auscultation anteriorly. No wheeze or crackle. HEART: S1, S2, regular rate and rhythm. No loud murmur ABDOMEN: Soft, right upper quadrant tenderness mild guarding no rigidity EXTREMITIES: No edema of feet. SKIN: No rash, no masses palpable. NEUROLOGICAL: The patient is awake, alert, oriented x3, mood and affect normal. Results CBC & Chem 7: 05/25/24 06:00 05/25/24 06:00 Labs: Abnormal Lab Results - Last 24 Hours (Table) 05/24/24 05/24/24 05/24/24 Range/Units 00:57 00:57 00:57 WBC 21.0 H (3.8-10.6) k/uL RBC 4.13 L (4.30-5.90) m/uL Hgb 11.0 L (13.0-17.5) gm/dL Hct 36.3 L (39.0-53.0) % MCHC 30.3 L (31.0-37.0) g/dL RDW 16.4 H (11.5-15.5) % Neutrophils # 18.7 H (1.3-7.7) k/uL Lymphocytes # 0.8 L (1.0-4.8) k/uL Monocytes # 1.3 H (0-1.0) k/uL INR 1.2 H (<1.2) Sodium (137-145) mmol/L Potassium (3.5-5.1) mmol/L Chloride (98-107) mmol/L Carbon Dioxide (22-30) mmol/L BUN (9-20) mg/dL Creatinine (0.66-1.25) mg/dL Glucose (74-99) mg/dL POC Glucose (mg/dL) (70-110) mg/dL Plasma Lactic Acid Roberto 2.9 H* (0.7-2.0) mmol/L Calcium (8.4-10.2) mg/dL Phosphorus (2.5-4.5) mg/dL Alkaline Phosphatase (38-126) U/L Total Protein (6.3-8.2) g/dL Albumin (3.5-5.0) g/dL Urine Glucose (UA) (Negative) 05/24/24 05/24/24 05/24/24 Range/Units 01:55 02:20 04:06 WBC (3.8-10.6) k/uL RBC (4.30-5.90) m/uL Hgb (13.0-17.5) gm/dL Hct (39.0-53.0) % MCHC (31.0-37.0) g/dL RDW (11.5-15.5) % Neutrophils # (1.3-7.7) k/uL Lymphocytes # (1.0-4.8) k/uL Monocytes # (0-1.0) k/uL INR (<1.2) Sodium 134 L (137-145) mmol/L Potassium 5.6 H (3.5-5.1) mmol/L Chloride 108 H (98-107) mmol/L Carbon Dioxide 18 L (22-30) mmol/L BUN 114 H* (9-20) mg/dL Creatinine 1.64 H (0.66-1.25) mg/dL Glucose 376 H (74-99) mg/dL POC Glucose (mg/dL) 411 H (70-110) mg/dL Plasma Lactic Acid Roberto (0.7-2.0) mmol/L Calcium 7.4 L (8.4-10.2) mg/dL Phosphorus 4.7 H (2.5-4.5) mg/dL Alkaline Phosphatase 517 H (38-126) U/L Total Protein 5.4 L (6.3-8.2) g/dL Albumin 2.4 L (3.5-5.0) g/dL Urine Glucose (UA) 3+ H (Negative) 05/24/24 05/24/24 Range/Units 05:07 09:15 WBC (3.8-10.6) k/uL RBC (4.30-5.90) m/uL Hgb (13.0-17.5) gm/dL Hct (39.0-53.0) % MCHC (31.0-37.0) g/dL RDW (11.5-15.5) % Neutrophils # (1.3-7.7) k/uL Lymphocytes # (1.0-4.8) k/uL Monocytes # (0-1.0) k/uL INR (<1.2) Sodium (137-145) mmol/L Potassium (3.5-5.1) mmol/L Chloride (98-107) mmol/L Carbon Dioxide (22-30) mmol/L BUN (9-20) mg/dL Creatinine (0.66-1.25) mg/dL Glucose (74-99) mg/dL POC Glucose (mg/dL) 209 H 284 H (70-110) mg/dL Plasma Lactic Acid Roberto (0.7-2.0) mmol/L Calcium (8.4-10.2) mg/dL Phosphorus (2.5-4.5) mg/dL Alkaline Phosphatase (38-126) U/L Total Protein (6.3-8.2) g/dL Albumin (3.5-5.0) g/dL Urine Glucose (UA) (Negative) Assessment and Plan (1) Leukocytosis Current Visit: Yes Status: Acute Code(s): D72.829 - ELEVATED WHITE BLOOD CELL COUNT, UNSPECIFIED SNOMED Code(s): 112814719 Plan: 1patient presented to hospital with generalized weakness and decreased appetite and the patient also noted to have significant urine white count 21,000 and this patient has been recently diagnosed with a liver cancer patient has been tender right upper quadrant area more likely related to the hepatobiliary disease. 2we will obtain CT abdominal pelvis with oral contrast only to rule out any intra-abdominal pathology 3continue with empiric Rocephin while waiting for the workup to be completed We will follow on clinical condition and cultures to further adjust medication if needed Thank you for this consultation we will follow the patient along with you Dictation was produced using [employer] dictation software. please excuse any grammatical, word or spelling errors. Time with Patient: Greater than 30
[2024-05-25] MEDS: prednisoLONE ACETATE 1% OPHTH DROPS 5 ML BTL BOTH EYES SCH (08:57)
[2024-05-25] MEDS ORDERED: RX INFO: IV CONTRAST WAS GIVEN 1 EACH MISC MISCELLANE PRN (11:06)
[2024-05-25 12:16] LABS: Glucose,Whole Blood 149 mg/dL (70-110)
--- NOTE | 2024-05-25 13:08 | P.PN ---
Subjective patient is seen for follow-up for acute kidney injury. Renal function has improved. Serum creatinine decreased to 1.2 mg/dL. CT of the abdomen shows innumerable hepatic masses. No urinary obstruction. Objective - Vital Signs Vital signs: Vital Signs Temp 98.6 F 05/25/24 07:10 Pulse 96 05/25/24 07:54 Resp 16 05/25/24 07:10 BP 113/69 05/25/24 07:10 Pulse Ox 90 L 05/25/24 07:10 FiO2 Intake & Output 05/24/24 05/25/24 05/25/24 18:59 06:59 18:59 Intake Total 658 590 690 Output Total 1200 Balance 658 -610 690 Weight 53.524 kg Intake: Oral 658 590 690 Output: Urine 1200 Other: Voiding Method Diaper Diaper Diaper Incontinent Incontinent External Catheter External Catheter # Voids 4 - Exam patient is awake, comfortable, no acute distress. Examination of the heart S1 and S2 Examination of the lungs bilateral breath sounds are heard Abdomen is soft nontender Examination of lower extremities shows no significant edema - Labs CBC & Chem 7: 05/25/24 06:00 05/25/24 06:00 Labs: Abnormal Lab Results - Last 24 Hours (Table) 05/24/24 05/24/24 05/25/24 Range/Units 17:01 19:52 06:00 WBC (4.50-10.00) X 10*3/uL RBC (4.40-5.60) X 10*6/uL Hgb (13.0-17.0) g/dL Hct (39.6-50.0) % MCH (27.0-32.0) pg MCHC (32.0-37.0) g/dL RDW (11.5-14.5) % Immature Gran # (0.00-0.04) X 10*3/uL Neutrophils # (1.80-7.70) X 10*3/uL Lymphocytes # (0.90-5.00) X 10*3/uL Carbon Dioxide (21.6-31.8) mmol/L BUN (9.0-27.0) mg/dL BUN/Creatinine Ratio (12.00-20.00) Ratio POC Glucose (mg/dL) 159 H 126 H (70-110) mg/dL Hemoglobin A1c 10.4 H (<=6.0) % Calcium (8.7-10.3) mg/dL AST (14-35) U/L Alkaline Phosphatase (41-126) U/L Total Protein (6.2-8.2) g/dL Albumin (3.8-4.9) g/dL Albumin/Globulin Ratio (1.60-3.17) Ratio 05/25/24 05/25/24 05/25/24 Range/Units 06:00 06:00 12:15 WBC 15.68 H (4.50-10.00) X 10*3/uL RBC 3.80 L (4.40-5.60) X 10*6/uL Hgb 9.6 L (13.0-17.0) g/dL Hct 31.3 L (39.6-50.0) % MCH 25.3 L (27.0-32.0) pg MCHC 30.7 L (32.0-37.0) g/dL RDW 17.4 H (11.5-14.5) % Immature Gran # 0.15 H (0.00-0.04) X 10*3/uL Neutrophils # 13.94 H (1.80-7.70) X 10*3/uL Lymphocytes # 0.83 L (0.90-5.00) X 10*3/uL Carbon Dioxide 20.7 L (21.6-31.8) mmol/L BUN 78.9 H (9.0-27.0) mg/dL BUN/Creatinine Ratio 65.75 H (12.00-20.00) Ratio POC Glucose (mg/dL) 149 H (70-110) mg/dL Hemoglobin A1c (<=6.0) % Calcium 7.8 L (8.7-10.3) mg/dL AST 104 H (14-35) U/L Alkaline Phosphatase 701 H (41-126) U/L Total Protein 5.3 L (6.2-8.2) g/dL Albumin 2.3 L (3.8-4.9) g/dL Albumin/Globulin Ratio 0.77 L (1.60-3.17) Ratio Microbiology - Last 24 Hours (Table) 05/24/24 02:45 Blood Culture - Preliminary Blood 05/24/24 02:30 Blood Culture - Preliminary Blood Assessment and Plan Assessment: 1. Acute kidney injury, ATN, improved. Maintained on IV fluids. UA is completely benign. No obstruction noted on ultrasound. LOIDA inhibitor's on hold. 2. history of fall 3. Mental status changes 4. Hyperkalemia associated with acute kidney injury in the setting of use of LOIDA inhibitor's. Rule out urine retention 5. Non-gap metabolic acidosis secondary to acute kidney injury. No history of diarrhea. 6. Multiple hepatic masses with high suspicion for malignancy Plan: continue with IV fluids repeat labs in a.m.
--- NOTE | 2024-05-25 13:46 | P.PN ---
Subjective Progress Note Date: 05/25/24 History of Present Illness H&P Date: 05/24/24 Chief Complaint: Increased weakness, fall, confusion Is a 69-year-old gentleman with past medical history significant for recently reported diagnosis of liver cancer approximately 2 weeks ago, scheduled for PET scan tomorrow transported to the ER via EMS related to increased weakness, confusion and fall. Patient reports poor appetite, sore throat, loose congested cough, occasionally productive. Denies nausea, vomiting. Afebrile, WBC 21, lactic acid 2.9, 1.7, hemoglobin 11, platelets 185, INR 1.2. Sodium 134, potassium 5.6, bicarb 18, BUN 114, creatinine 1.64. Glucose 376, calcium 7.4, Phos 4.7 magnesium 2 alk phos 517, troponin negative x 1, ammonia less than 9, albumin 2.4. Viral studies negative. Brain CT reported no acute intracranial abnormality. Chest x-ray reported no acute cardiopulmonary process. EKG reported sinus tachycardia, 05/25/2024 continues on IV fluid hydration, bicarb 20.7, BUN 78.9, creatinine 1.2. Renal ultrasound reported enlarged heterogenous liver scattered masses compatible with diagnosis of liver cancer no obstruction/no hydronephrosis. CT of abdomen pelvis reported innumerable hepatic masses poorly visualized, compatible with history of malignancy, prominent gastric hepatic ligament lymph nodes concerning for malignancy and fractured left L2 pedicle screw. Complains of chronic back pain. Sensorium slowly improving. Continues on antibiotics, cough and abdominal pain has lessened. Afebrile, WBC decreased to 15.68. no bowel movement, passing flatus. Hemoglobin 9.6, platelets 147. Objective - Vital Signs Vital signs: Vital Signs Temp 98.3 F 05/25/24 13:09 Pulse 90 05/25/24 13:09 Resp 16 05/25/24 13:09 BP 117/72 05/25/24 13:09 Pulse Ox 93 L 05/25/24 13:09 FiO2 Intake & Output 05/24/24 05/25/24 05/25/24 18:59 06:59 18:59 Intake Total 658 590 690 Output Total 1200 Balance 658 -610 690 Weight 53.524 kg Intake: Oral 658 590 690 Output: Urine 1200 Other: Voiding Method Diaper Diaper Diaper Incontinent Incontinent External Catheter External Catheter # Voids 4 - Exam PHYSICAL EXAM: VITAL SIGNS: [Reviewed] GENERAL: Confused, alert to name HEENT: Conjunctivae normal. eyes normal. NECK: Supple, no JVD. CARDIOVASCULAR: S1, S2 regular. No murmur RESPIRATION: Unlabored, rhonchorous with loose congested cough. ABDOMEN: Soft, nondistended, generalized diffuse tenderness throughout, including right upper quadrant,+BS LEGS: No edema. no swelling. PSYCHIATRY: Alert and oriented X3, mood and affect normal. NERVOUS SYSTEM: Cranial N 2-12 grossly normal. No focal deficits. Skin: Warm and dry, no rash - Labs CBC & Chem 7: 05/25/24 06:00 05/25/24 06:00 Labs: Abnormal Lab Results - Last 24 Hours (Table) 05/24/24 05/24/24 05/25/24 Range/Units 17:01 19:52 06:00 WBC (4.50-10.00) X 10*3/uL RBC (4.40-5.60) X 10*6/uL Hgb (13.0-17.0) g/dL Hct (39.6-50.0) % MCH (27.0-32.0) pg MCHC (32.0-37.0) g/dL RDW (11.5-14.5) % Immature Gran # (0.00-0.04) X 10*3/uL Neutrophils # (1.80-7.70) X 10*3/uL Lymphocytes # (0.90-5.00) X 10*3/uL Carbon Dioxide (21.6-31.8) mmol/L BUN (9.0-27.0) mg/dL BUN/Creatinine Ratio (12.00-20.00) Ratio POC Glucose (mg/dL) 159 H 126 H (70-110) mg/dL Hemoglobin A1c 10.4 H (<=6.0) % Calcium (8.7-10.3) mg/dL AST (14-35) U/L Alkaline Phosphatase (41-126) U/L Total Protein (6.2-8.2) g/dL Albumin (3.8-4.9) g/dL Albumin/Globulin Ratio (1.60-3.17) Ratio 10/17/24 10/17/24 10/17/24 Range/Units 06:00 06:00 12:15 WBC 15.68 H (4.50-10.00) X 10*3/uL RBC 3.80 L (4.40-5.60) X 10*6/uL Hgb 9.6 L (13.0-17.0) g/dL Hct 31.3 L (39.6-50.0) % MCH 25.3 L (27.0-32.0) pg MCHC 30.7 L (32.0-37.0) g/dL RDW 17.4 H (11.5-14.5) % Immature Gran # 0.15 H (0.00-0.04) X 10*3/uL Neutrophils # 13.94 H (1.80-7.70) X 10*3/uL Lymphocytes # 0.83 L (0.90-5.00) X 10*3/uL Carbon Dioxide 20.7 L (21.6-31.8) mmol/L BUN 78.9 H (9.0-27.0) mg/dL BUN/Creatinine Ratio 65.75 H (12.00-20.00) Ratio POC Glucose (mg/dL) 149 H (70-110) mg/dL Hemoglobin A1c (<=6.0) % Calcium 7.8 L (8.7-10.3) mg/dL AST 104 H (14-35) U/L Alkaline Phosphatase 701 H (41-126) U/L Total Protein 5.3 L (6.2-8.2) g/dL Albumin 2.3 L (3.8-4.9) g/dL Albumin/Globulin Ratio 0.77 L (1.60-3.17) Ratio Microbiology - Last 24 Hours (Table) 05/24/24 02:45 Blood Culture - Preliminary Blood 05/24/24 02:30 Blood Culture - Preliminary Blood Assessment and Plan Assessment: Sepsis, etiology unclear Leukocytosis Lactic acidosis, resumed with IV fluid hydration Acute hypoxic respiratory failure Dehydration Acute on chronic renal failure, stage III, ATN, home medications Zestoretic/lisinopril on hold, Metabolic acidosis secondary to the above Generalized weakness status post fall Acute metabolic encephalopathy secondary to the above Recent diagnosis of liver cancer 3 weeks ago, scheduled for PET scan 1017 History of alcohol abuse History of hepatitis C COPD Sleep apnea, wears CPAP Diabetes mellitus Gastroesophageal reflux disease Hypertension Hyperlipidemia BPH Bilateral corneal transplant 2020 OA, multiple joint surgeries, fusion L1- L5 Ongoing nicotine dependence Plan: Continue on current medication resume ,monitoring and symptomatic treatment. Gentle IV fluid hydration, nystatin swish and swallow and antibiotics. Preliminary blood cultures reporting no growth .continue avoiding nephrotoxic agents. Prognosis guarded given multiple complex medical issues. The impression and plan of care has been dictated as directed. : I performed a history and examination of this patient, discussed the same with the dictator. I agree with the dictator's note ,documented as a scribe. Any additional findings or plans will be noted.
--- NOTE | 2024-05-25 16:07 | P.PN ---
Subjective Progress Note Date: 05/25/24 Principal diagnosis: Reason for follow-up is leukocytosis Patient is a 69-year-old male with a past medical history significant for diabetes mellitus COPD hypertension hyperlipidemia osteoarthritis hepatitis C has been diagnosed with liver cancer approximately 2 weeks ago before presentation to the hospital has been brought in with confusion weakness did have elevated white count prompted this consultation. On today's evaluation that is 05/25/2024, Patient is afebrile this morning patient denies having any chest pain shortness of breath or cough, the patient is currently on room air, patient denies any abdominal pain no diarrhea no nausea no vomiting some confusion has been reported by the nursing staff. Patient white count is down to 15.68 creatinine is 1.2 blood cultures are pending Objective - Vital Signs Vital signs: Vital Signs Temp 98.3 F 05/25/24 13:09 Pulse 90 05/25/24 13:09 Resp 16 05/25/24 13:09 BP 117/72 05/25/24 13:09 Pulse Ox 93 L 05/25/24 13:09 FiO2 Intake & Output 05/24/24 05/25/24 05/25/24 18:59 06:59 18:59 Intake Total 658 590 690 Output Total 1200 Balance 658 -610 690 Weight 53.524 kg Intake: Oral 658 590 690 Output: Urine 1200 Other: Voiding Method Diaper Diaper Diaper Incontinent Incontinent External Catheter External Catheter # Voids 4 - Exam GENERAL DESCRIPTION: An elderly male lying in bed in no distress RESPIRATORY SYSTEM: Unlabored breathing , decreased breath sounds at bases HEART: S1 S2 regular rate and rhythm , ABDOMEN: Soft , right upper quadrant tenderness EXTREMITIES: No edema feet - Labs CBC & Chem 7: 05/25/24 06:00 05/25/24 06:00 Labs: Abnormal Lab Results - Last 24 Hours (Table) 05/24/24 05/24/24 05/25/24 Range/Units 17:01 19:52 06:00 WBC (4.50-10.00) X 10*3/uL RBC (4.40-5.60) X 10*6/uL Hgb (13.0-17.0) g/dL Hct (39.6-50.0) % MCH (27.0-32.0) pg MCHC (32.0-37.0) g/dL RDW (11.5-14.5) % Immature Gran # (0.00-0.04) X 10*3/uL Neutrophils # (1.80-7.70) X 10*3/uL Lymphocytes # (0.90-5.00) X 10*3/uL Carbon Dioxide (21.6-31.8) mmol/L BUN (9.0-27.0) mg/dL BUN/Creatinine Ratio (12.00-20.00) Ratio POC Glucose (mg/dL) 159 H 126 H (70-110) mg/dL Hemoglobin A1c 10.4 H (<=6.0) % Calcium (8.7-10.3) mg/dL AST (14-35) U/L Alkaline Phosphatase (41-126) U/L Total Protein (6.2-8.2) g/dL Albumin (3.8-4.9) g/dL Albumin/Globulin Ratio (1.60-3.17) Ratio 05/25/24 05/25/24 05/25/24 Range/Units 06:00 06:00 12:15 WBC 15.68 H (4.50-10.00) X 10*3/uL RBC 3.80 L (4.40-5.60) X 10*6/uL Hgb 9.6 L (13.0-17.0) g/dL Hct 31.3 L (39.6-50.0) % MCH 25.3 L (27.0-32.0) pg MCHC 30.7 L (32.0-37.0) g/dL RDW 17.4 H (11.5-14.5) % Immature Gran # 0.15 H (0.00-0.04) X 10*3/uL Neutrophils # 13.94 H (1.80-7.70) X 10*3/uL Lymphocytes # 0.83 L (0.90-5.00) X 10*3/uL Carbon Dioxide 20.7 L (21.6-31.8) mmol/L BUN 78.9 H (9.0-27.0) mg/dL BUN/Creatinine Ratio 65.75 H (12.00-20.00) Ratio POC Glucose (mg/dL) 149 H (70-110) mg/dL Hemoglobin A1c (<=6.0) % Calcium 7.8 L (8.7-10.3) mg/dL AST 104 H (14-35) U/L Alkaline Phosphatase 701 H (41-126) U/L Total Protein 5.3 L (6.2-8.2) g/dL Albumin 2.3 L (3.8-4.9) g/dL Albumin/Globulin Ratio 0.77 L (1.60-3.17) Ratio Microbiology - Last 24 Hours (Table) 05/24/24 02:45 Blood Culture - Preliminary Blood 05/24/24 02:30 Blood Culture - Preliminary Blood Assessment and Plan (1) Leukocytosis Current Visit: Yes Status: Acute Code(s): D72.829 - ELEVATED WHITE BLOOD CELL COUNT, UNSPECIFIED SNOMED Code(s): 371411821 Plan: 1patient presented to hospital with generalized weakness and decreased appetite and the patient also noted to have significant urine white count 21,000 and this patient has been recently diagnosed with a liver cancer patient has been tender right upper quadrant area more likely related to the hepatobiliary disease. 2patient did have CT abdominal pelvis with oral contrast only because of his kidney function did show Innumerable hepatic masses, prominent gastric hepatic ligament lymph nodes currently undergoing further workup per oncology 3patient to continue with empiric Rocephin while waiting for the workup to be completed Family at the bedside questions answered Dictation was produced using [employer] dictation software. please excuse any grammatical, word or spelling errors. Time with Patient: Less than 30
[2024-05-25 17:10] LABS: Glucose,Whole Blood 151 mg/dL (70-110)
--- NOTE | 2024-05-25 17:33 | P.PN ---
Subjective Progress Note Date: 05/25/24 No acute events. Pt seems to be more alert today. Reporting right side/RUQ discomfort. Denies n/v. Remains afebrile Objective - Vital Signs Vital signs: Vital Signs Temp 98.6 F 05/25/24 07:10 Pulse 96 05/25/24 07:54 Resp 16 05/25/24 07:10 BP 113/69 05/25/24 07:10 Pulse Ox 90 L 05/25/24 07:10 FiO2 Intake & Output 05/24/24 05/25/24 05/25/24 18:59 06:59 18:59 Intake Total 658 590 690 Output Total 1200 Balance 658 -610 690 Weight 53.524 kg Intake: Oral 658 590 690 Output: Urine 1200 Other: Voiding Method Diaper Diaper Diaper Incontinent Incontinent External Catheter External Catheter # Voids 4 - Constitutional General appearance: Present: no acute distress - EENT Eyes: Present: anicteric sclerae - Respiratory Details: breathing is even and unlabored - Cardiovascular Details: skin warm and dry - Gastrointestinal General gastrointestinal: Present: soft. Absent: tenderness - Integumentary Integumentary: Absent: cyanotic, jaundiced - Musculoskeletal Musculoskeletal: Present: generalized weakness - Labs CBC & Chem 7: 05/25/24 06:00 05/25/24 06:00 Labs: Abnormal Lab Results - Last 24 Hours (Table) 05/24/24 05/24/24 05/24/24 Range/Units 12:07 17:01 19:52 WBC (4.50-10.00) X 10*3/uL RBC (4.40-5.60) X 10*6/uL Hgb (13.0-17.0) g/dL Hct (39.6-50.0) % MCH (27.0-32.0) pg MCHC (32.0-37.0) g/dL RDW (11.5-14.5) % Immature Gran # (0.00-0.04) X 10*3/uL Neutrophils # (1.80-7.70) X 10*3/uL Lymphocytes # (0.90-5.00) X 10*3/uL Carbon Dioxide (21.6-31.8) mmol/L BUN (9.0-27.0) mg/dL BUN/Creatinine Ratio (12.00-20.00) Ratio POC Glucose (mg/dL) 325 H 159 H 126 H (70-110) mg/dL Hemoglobin A1c (<=6.0) % Calcium (8.7-10.3) mg/dL AST (14-35) U/L Alkaline Phosphatase (41-126) U/L Total Protein (6.2-8.2) g/dL Albumin (3.8-4.9) g/dL Albumin/Globulin Ratio (1.60-3.17) Ratio 05/25/24 05/25/24 05/25/24 Range/Units 06:00 06:00 06:00 WBC 15.68 H (4.50-10.00) X 10*3/uL RBC 3.80 L (4.40-5.60) X 10*6/uL Hgb 9.6 L (13.0-17.0) g/dL Hct 31.3 L (39.6-50.0) % MCH 25.3 L (27.0-32.0) pg MCHC 30.7 L (32.0-37.0) g/dL RDW 17.4 H (11.5-14.5) % Immature Gran # 0.15 H (0.00-0.04) X 10*3/uL Neutrophils # 13.94 H (1.80-7.70) X 10*3/uL Lymphocytes # 0.83 L (0.90-5.00) X 10*3/uL Carbon Dioxide 20.7 L (21.6-31.8) mmol/L BUN 78.9 H (9.0-27.0) mg/dL BUN/Creatinine Ratio 65.75 H (12.00-20.00) Ratio POC Glucose (mg/dL) (70-110) mg/dL Hemoglobin A1c 10.4 H (<=6.0) % Calcium 7.8 L (8.7-10.3) mg/dL AST 104 H (14-35) U/L Alkaline Phosphatase 701 H (41-126) U/L Total Protein 5.3 L (6.2-8.2) g/dL Albumin 2.3 L (3.8-4.9) g/dL Albumin/Globulin Ratio 0.77 L (1.60-3.17) Ratio Assessment and Plan (1) Weakness Current Visit: Yes Status: Acute Priority: High Code(s): R53.1 - WEAKNESS SNOMED Code(s): 21176726 (2) Liver lesion Current Visit: Yes Status: Acute Priority: High Code(s): K76.9 - LIVER DISEASE, UNSPECIFIED SNOMED Code(s): 730572384 Plan: Weakness, sepsis: Presented for progressing weakness, cough, and sore throat and was admitted for sepsis -CT brain w/o was negative for acute intracranial processes. Chest x-ray was negative for acute cardiopulmonary processes. Viral panel negative. UA negative for UTI. blood cultures pending Patient is afebrile, HDS. -Admit labs showing WBC 21.0, hemoglobin 11.0, platelets 185,000. GFR 1.64, creatinine 1.64, GFR 42. Glucose was elevated on admit at 411. ALP 517, AST 47, ALT 25, bilirubin 0.7. Ammonia < 9 -Blood cultures negative thus far. Continues on rocephin empirically. Leukocytosis improving -ID following Liver abscess vs lesions: -Patient was being followed for evaluation of liver lesions vs abscesses. Plan was for patient to complete course of antibiotics with subsequent f/u imaging to revaluate. He was scheduled for liver MRI, however PET CT was ordered by his PCP and is scheduled for 05/25/24, which unfortunately will be missed due to hospitalization -Will obtain liver US to further evaluate. Liver ultrasound showed enlarged heterogeneous liver scattered masses and small ascites. CT abdomen pelvis without contrast was also obtained showing innumerable hepatic masses. Pr ominent gastric hepatic ligament lymph nodes. Discussed with patient today that unfortunately scans appear to be consistent with malignancy rather than abscesses Will obtain staging scans with CT chest, brain MRI and bone scan -IR consulted for liver biopsy Findings and plan of care were discussed with the patient. He was agreeable to proceed with further workup. Doctor attests: I performed a history and physical examination of this patient, developed impression and plan of care. Discussed with dictator. I agree with dictators note, documented as a scribe.
[2024-05-25 19:58] LABS: Glucose,Whole Blood 129 mg/dL (70-110)
[2024-05-26 07:13] LABS: Glucose,Whole Blood 97 mg/dL (70-110)
[2024-05-26] MEDS: LORazepam 2 MG/ML INJ IV ONE (11:54)
[2024-05-26] MEDS: HYDROcodone/APAP 10-325MG 1 EACH TAB PO ONE (11:55)
--- NOTE | 2024-05-26 13:12 | P.PN ---
Subjective patient is seen for follow-up for acute kidney injury. Renal function has improved. Serum creatinine decreased to 1.2 mg/dL. CT of the abdomen shows innumerable hepatic masses consistent with malignancy. No urinary obstruction. Objective - Vital Signs Vital signs: Vital Signs Temp 98.1 F 05/26/24 07:26 Pulse 82 05/26/24 08:03 Resp 16 05/26/24 08:03 BP 142/80 05/26/24 07:26 Pulse Ox 96 05/26/24 07:26 FiO2 Intake & Output 05/25/24 05/26/24 05/26/24 18:59 06:59 18:59 Intake Total 2482 850 Output Total 700 1300 Balance 1782 -450 Weight 59.5 kg Intake: IV 10 Invasive Line 2 10 Oral 2482 840 Output: Urine 700 1300 Other: Voiding Method Diaper Incontinent Incontinent Incontinent External Catheter External Catheter External Catheter - Exam patient is awake, comfortable, no acute distress. Examination of the heart S1 and S2 Examination of the lungs bilateral breath sounds are heard Abdomen is soft nontender Examination of lower extremities shows no significant edema - Labs CBC & Chem 7: 05/25/24 06:00 05/25/24 06:00 Labs: Abnormal Lab Results - Last 24 Hours (Table) 05/25/24 05/25/24 Range/Units 17:09 19:57 POC Glucose (mg/dL) 151 H 129 H (70-110) mg/dL Microbiology - Last 24 Hours (Table) 05/24/24 02:45 Blood Culture - Preliminary Blood 05/24/24 02:30 Blood Culture - Preliminary Blood Assessment and Plan Assessment: 1. Acute kidney injury, ATN, improved. Maintained on IV fluids. UA is completely benign. No obstruction noted on ultrasound. LOIDA inhibitor's on hold. 2. History of fall 3. Mental status changes 4. Hyperkalemia associated with acute kidney injury in the setting of use of LOIDA inhibitor's. Rule out urine retention 5. Non-gap metabolic acidosis secondary to acute kidney injury. No history of diarrhea. 6. Multiple hepatic masses with high suspicion for malignancy Plan: continue with IV fluids repeat labs in a.m.
--- NOTE | 2024-05-26 13:16 | MR ---
EXAMINATION TYPE: MR brain wo/w con DATE OF EXAM: 05/26/2024 12:45 PM CLINICAL INDICATION: Male, 69 years old with history of liver lesions, staging; PHH, Liver lesions, s taging. COMPARISON: 05/24/2024 TECHNIQUE: Multi planar, multi sequence imaging was performed through the brain including: T1, T2, In version recovery, susceptibility weighted imaging and gradient echo imaging and Diffusion weighted im aging. The patient was then given intravenous contrast and multi planar, T1 fat-saturation images wer e obtained. IV Contrast: 9 cc Gadavist FINDINGS: The aponte-white junctions, ventricular system, basal cisterns appear unremarkable. Diffusion-weighted imaging shows no evidence of restricted diffusion to suggest acute/subacute infarct. Intracranial ar terial flow voids are maintained. Midline structures show no abnormality. Scattered foci of high T2 s ignal intensity are seen within the periventricular white matter. The susceptibility weighted images do not reveal any evidence for micro-hemorrhage. After administration of gadolinium, no abnormal enha ncement is seen. The bone marrow signal is within normal limits. Paranasal sinuses and mastoid air cells: No significant paranasal sinus disease. Visualized orbits: Orbital contents are intact. IMPRESSION: 1. No evidence of intracranial mass, acute/subacute infarct, or abnormal enhancement. 2. Nonspecific white matter changes, likely related to small vessel ischemic disease. [facility], , 05/26/2024 1:14 PM
--- NOTE | 2024-05-26 13:20 | NM ---
EXAMINATION TYPE: NM bone scan whole body DATE OF EXAM: 05/26/2024 COMPARISON: NONE CLINICAL INDICATION: Male, 69 years old with history of liver lesions, staging; Delayed whole-body scanning was performed following the injection of 20.0 mCi Tc 99m MDP. Images acq uired 3 hours post injection. FINDINGS: Clnm-wa-oghcokhm intensity uptake involving the mid and lower lumbar spine appears to correspond to d egenerative and postsurgical changes. Additional moderate uptake involving the thoracic spine also is most typical degenerative changes noted by CT scan. Mild intensity uptake along the right greater trochanter can be associated with trochanteric bursitis . No diagnostic evidence of metastases. IMPRESSION: No diagnostic evidence of metastases. [facility], , 05/26/2024 1:18 PM
[2024-05-26 14:08] LABS: Glucose,Whole Blood 94 mg/dL (70-110)
--- NOTE | 2024-05-26 15:59 | CT ---
EXAMINATION TYPE: CT chest w con DATE OF EXAM: 05/25/2024 COMPARISON: 05/24/2024 CT abdomen and pelvis HISTORY: Staging, Liver lesions CT DLP: r mGycm, Automated exposure control for dose reduction was used. CONTRAST: Performed injected with 80ml mL of Isovue 300. TECHNIQUE: Axial images were obtained at 5 mm thick sections. Reconstructed images are reviewed on [employer] computer in the coronal plane. FINDINGS: Portion of the thyroid visualized is normal. There is a minimal right pleural effusion present. Bilateral compressive atelectasis is present. Emphysematous changes are within the upper lung howe. There is a 0.4 cm nodule within the left upper lung field. Series 4 image 16. This is nonspecific. Me tastasis could be within the differential. No enlarged mediastinal or hilar adenopathy is evident. Scattered small lymph nodes or within the me diastinum. The ascending aorta diameter at the level of the main pulmonary artery is 3.6 cm. The ion n pulmonary artery diameter at the bifurcation is 2.7 cm. Coronary artery calcifications present. Limited CT sections are obtained through the upper abdomen. Small amount of ascites adjacent to the s pleen. See prior CT abdomen and pelvis for upper abdominal findings including hepatic metastasis. IMPRESSION: 1. Small nodule left upper lung field is nonspecific. Follow-up recommended. 2. COPD [facility], , 05/26/2024 3:56 PM
[2024-05-26 16:14] VITALS: BMI 20.5
--- NOTE | 2024-05-26 16:26 | P.PN ---
Subjective Progress Note Date: 05/26/24 History of Present Illness H&P Date: 05/24/24 Chief Complaint: Increased weakness, fall, confusion Is a 69-year-old gentleman with past medical history significant for recently reported diagnosis of liver cancer approximately 2 weeks ago, scheduled for PET scan tomorrow transported to the ER via EMS related to increased weakness, confusion and fall. Patient reports poor appetite, sore throat, loose congested cough, occasionally productive. Denies nausea, vomiting. Afebrile, WBC 21, lactic acid 2.9, 1.7, hemoglobin 11, platelets 185, INR 1.2. Sodium 134, potassium 5.6, bicarb 18, BUN 114, creatinine 1.64. Glucose 376, calcium 7.4, Phos 4.7 magnesium 2 alk phos 517, troponin negative x 1, ammonia less than 9, albumin 2.4. Viral studies negative. Brain CT reported no acute intracranial abnormality. Chest x-ray reported no acute cardiopulmonary process. EKG reported sinus tachycardia, 05/25/2024 continues on IV fluid hydration, bicarb 20.7, BUN 78.9, creatinine 1.2. Renal ultrasound reported enlarged heterogenous liver scattered masses compatible with diagnosis of liver cancer no obstruction/no hydronephrosis. CT of abdomen pelvis reported innumerable hepatic masses poorly visualized, compatible with history of malignancy, prominent gastric hepatic ligament lymph nodes concerning for malignancy and fractured left L2 pedicle screw. Complains of chronic back pain. Sensorium slowly improving. Continues on antibiotics, cough and abdominal pain has lessened. Afebrile, WBC decreased to 15.68. no bowel movement, passing flatus. Hemoglobin 9.6, platelets 147. " 05/26/2024 maintained on empiric IV antibiotics, IV fluid hydration. Evaluated by oncology, brain MRI, bone scan, chest CT ordered with IR consulted for liver biopsy.. Patient complains of feeling" loopy". Denies chest pain, palpitations or shortness of breath. Objective - Vital Signs Vital signs: Vital Signs Temp 97.9 F 05/26/24 14:06 Pulse 93 05/26/24 14:06 Resp 15 05/26/24 14:06 BP 114/69 05/26/24 14:06 Pulse Ox 91 L 05/26/24 13:03 FiO2 Intake & Output 05/25/24 05/26/24 05/26/24 18:59 06:59 18:59 Intake Total 2482 850 Output Total 700 1300 Balance 1782 -450 Weight 59.5 kg Intake: IV 10 Invasive Line 2 10 Oral 2482 840 Output: Urine 700 1300 Other: Voiding Method Diaper Incontinent Incontinent Incontinent External Catheter External Catheter External Catheter - Exam PHYSICAL EXAM: VITAL SIGNS: [Reviewed] GENERAL: Confused, alert and oriented x 2 EENT: Conjunctivae normal. eyes normal. NECK: Supple, no JVD. CARDIOVASCULAR: S1, S2 regular. No murmur RESPIRATION: Unlabored, rhonchorous with loose congested cough. ABDOMEN: Soft, nondistended, generalized diffuse tenderness throughout, including right upper quadrant,+BS LEGS: No edema. no swelling. PSYCHIATRY: Alert and oriented X2, mood and affect normal. NERVOUS SYSTEM: Cranial N 2-12 grossly normal. Skin: Warm and dry, no rash - Labs CBC & Chem 7: 05/25/24 06:00 05/25/24 06:00 Labs: Abnormal Lab Results - Last 24 Hours (Table) 05/25/24 05/25/24 Range/Units 17:09 19:57 POC Glucose (mg/dL) 151 H 129 H (70-110) mg/dL Microbiology - Last 24 Hours (Table) 05/24/24 02:45 Blood Culture - Preliminary Blood 05/24/24 02:30 Blood Culture - Preliminary Blood Assessment and Plan Assessment: Sepsis, ruling out , probable SIRS. Leukocytosis improving Lactic acidosis, resolved with IV fluid hydration Acute hypoxic respiratory failure Dehydration Acute on chronic renal failure, stage III, ATN, home medications Zestoretic/lisinopril on hold, Metabolic acidosis secondary to the above Generalized weakness status post fall Acute metabolic encephalopathy secondary to the above Recent diagnosis of liver cancer 3 weeks ago, scheduled for PET scan 1017 History of alcohol abuse History of hepatitis C COPD Sleep apnea, wears CPAP Diabetes mellitus Gastroesophageal reflux disease Hypertension Hyperlipidemia BPH Bilateral corneal transplant 2020 OA, multiple joint surgeries, fusion L1- L5 Ongoing nicotine dependence Plan: Continue on current medication resume ,monitoring and symptomatic treatment. Oncology workup in progress with interventional radiology consulted for liver biopsy, CT of chest, brain MRI and bone scan. continue avoiding nephrotoxic agents. Maintain empiric antibiotics as per ID. blood cultures pending.IV fluid hydration. Prognosis guarded given multiple complex medical issues. The impression and plan of care has been dictated as directed. : I performed a history and examination of this patient, discussed the same with the dictator. I agree with the dictator's note ,documented as a scribe. Any additional findings or plans will be noted.
[2024-05-26 17:12] LABS: Glucose,Whole Blood 132 mg/dL (70-110)
--- NOTE | 2024-05-26 17:27 | P.PN ---
Subjective Progress Note Date: 05/26/24 No acute events. Pt lethargic at todays visit, may be from ativan given prior to procedure. Had mri brain and bone scan this morning, results pending. Objective - Vital Signs Vital signs: Vital Signs Temp 97.9 F 05/26/24 14:06 Pulse 93 05/26/24 14:06 Resp 15 05/26/24 14:06 BP 114/69 05/26/24 14:06 Pulse Ox 91 L 05/26/24 13:03 FiO2 Intake & Output 05/25/24 05/26/24 05/26/24 18:59 06:59 18:59 Intake Total 2482 850 Output Total 700 1300 Balance 1782 -450 Weight 59.5 kg Intake: IV 10 Invasive Line 2 10 Oral 2482 840 Output: Urine 700 1300 Other: Voiding Method Diaper Incontinent Incontinent Incontinent External Catheter External Catheter External Catheter - Constitutional General appearance: Present: no acute distress - Respiratory Details: breathing is even and unlabored - Cardiovascular Details: skin warm and dry - Integumentary Integumentary: Absent: cyanotic, jaundiced - Neurologic Neurologic Comment(s): lethargic - Musculoskeletal Musculoskeletal: Present: generalized weakness - Labs CBC & Chem 7: 05/25/24 06:00 05/25/24 06:00 Labs: Abnormal Lab Results - Last 24 Hours (Table) 05/25/24 05/25/24 Range/Units 17:09 19:57 POC Glucose (mg/dL) 151 H 129 H (70-110) mg/dL Microbiology - Last 24 Hours (Table) 05/24/24 02:45 Blood Culture - Preliminary Blood 05/24/24 02:30 Blood Culture - Preliminary Blood - Imaging and Cardiology CT scan - chest: report reviewed MRI - head: report reviewed bone scan reviewed Assessment and Plan (1) Weakness Current Visit: Yes Status: Acute Priority: High Code(s): R53.1 - WEAKNESS SNOMED Code(s): 15256670 (2) Liver lesion Current Visit: Yes Status: Acute Priority: High Code(s): K76.9 - LIVER DISEASE, UNSPECIFIED SNOMED Code(s): 182898630 Plan: Weakness, sepsis: Presented for progressing weakness, cough, and sore throat and was admitted for sepsis -CT brain w/o was negative for acute intracranial processes. Chest x-ray was negative for acute cardiopulmonary processes. Viral panel negative. UA negative for UTI. blood cultures pending Patient is afebrile, HDS. -Admit labs showing WBC 21.0, hemoglobin 11.0, platelets 185,000. GFR 1.64, creatinine 1.64, GFR 42. Glucose was elevated on admit at 411. ALP 517, AST 47, ALT 25, bilirubin 0.7. Ammonia < 9 -Blood cultures negative thus far. Continues on rocephin empirically. Leukocytosis improving -ID following Liver abscess vs lesions: -Patient was being followed for evaluation of liver lesions vs abscesses. Plan was for patient to complete course of antibiotics with subsequent f/u imaging to revaluate. He was scheduled for liver MRI, however PET CT was ordered by his PCP and is scheduled for 05/25/24, which unfortunately will be missed due to hospitalization -Will obtain liver US to further evaluate. Liver ultrasound showed enlarged heterogeneous liver scattered masses and small ascites. CT abdomen pelvis without contrast was also obtained showing innumerable hepatic masses. Prominent gastric hepatic ligament lymph nodes. Discussed with patient today that unfortunately scans appear to be consistent with malignancy rather than abscesses Staging scans with CT chest, brain MRI and bone scan ordered -Brain MRI showed no evidence of intracranial mass, acute/subacute infarct or abnormal enhancement. Bone scan was negative for evidence of metastases. CT chest showing nonspecific 0.4 cm nodule within the left upper lung field, and COPD -IR consulted for liver biopsy. Spoke with Dr. Lutz, biopsy will be sc heduled for 05/29 Findings and plan of care were discussed with the patient and spouse. All questions and concerns were addressed Doctor attests: I performed a history and physical examination of this patient, developed impression and plan of care. Discussed with dictator. I agree with dictators note, documented as a scribe.
[2024-05-26 20:02] LABS: Glucose,Whole Blood 121 mg/dL (70-110)
[2024-05-27] MEDS: HYDROmorphone 0.5 MG/0.5 ML SYRINGE IVP PRN (04:46)
[2024-05-27] MEDS: IPRATROPIUM-ALBUTEROL 3 ML NEB INHALATION PRN (05:26)
[2024-05-27 07:23] LABS: Glucose,Whole Blood 111 mg/dL (70-110)
[2024-05-27] MEDS: ALPRAZolam 0.25 MG TAB PO PRN (09:26)
[2024-05-27 10:14] LABS: Basophils # (A) 0.03 X 10*3/uL (0.00-0.10); Basophils % (A) 0.1 %; Eosinophils % (A) 0.5 %; HCT 33.7 % (39.6-50.0); HGB 10.1 g/dL (13.0-17.0); Lymphocytes # (A) 1.01 X 10*3/uL (0.90-5.00); Lymphocytes % (A) 4.9 %; MCH 25.8 pg (27.0-32.0); Monocytes # (A) 0.99 X 10*3/uL (0.20-1.00); Monocytes % (A) 4.8 %; NRBC Per 100 WBC 0 X 10*3/uL (0.00-0.01); Neutrophils # (A) 18.13 X 10*3/uL (1.80-7.70); Neutrophils % (A) 88.8 %; Platelet Count 130 X 10*3/uL (140-440); RBC 3.92 X 10*6/uL (4.40-5.60); RDW 18.3 % (11.5-14.5); WBC 20.45 X 10*3/uL (4.50-10.00)
[2024-05-27 10:33] LABS: Blood Urea Nitrogen 45.2 mg/dL (9.0-27.0); Calcium 7.7 mg/dL (8.7-10.3); Carbon Dioxide 16.7 mmol/L (21.6-31.8); Chloride 105 mmol/L (96-109); Glucose 91 mg/dL (70-110); Potassium 5.3 mmol/L (3.5-5.5); Sodium 136 mmol/L (135-145)
[2024-05-27] MEDS: DEXTROSE 5% IN WATER 1,000 ML with SODIUM BICARB (1 MEQ/ML) 150 ML IV SCH (11:18)
[2024-05-27 12:37] LABS: Glucose,Whole Blood 168 mg/dL (70-110)
--- NOTE | 2024-05-27 15:24 | P.PN ---
Subjective Progress Note Date: 05/27/24 69-year-old gentleman with past medical history significant for recently reported diagnosis of liver cancer approximately 2 weeks ago, scheduled for PET scan tomorrow transported to the ER via EMS related to increased weakness, confusion and fall. Patient reports poor appetite, sore throat, loose congested cough, occasionally productive. Denies nausea, vomiting. Afebrile, WBC 21, lactic acid 2.9, 1.7, hemoglobin 11, platelets 185, INR 1.2. Sodium 134, potassium 5.6, bicarb 18, BUN 114, creatinine 1.64. Glucose 376, calcium 7.4, Phos 4.7 magnesium 2 alk phos 517, troponin negative x 1, ammonia less than 9, albumin 2.4. Viral studies negative. Brain CT reported no acute intracranial abnormality. Chest x-ray reported no acute cardiopulmonary process. EKG reported sinus tachycardia, 05/25/2024 continues on IV fluid hydration, bicarb 20.7, BUN 78.9, creatinine 1.2. Renal ultrasound reported enlarged heterogenous liver scattered masses compatible with diagnosis of liver cancer no obstruction/no hydronephrosis. CT of abdomen pelvis reported innumerable hepatic masses poorly visualized, compatible with history of malignancy, prominent gastric hepatic ligament lymph nodes concerning for malignancy and fractured left L2 pedicle screw. Complains of chronic back pain. Sensorium slowly improving. Continues on antibiotics, cough and abdominal pain has lessened. Afebrile, WBC decreased to 15.68. no bowel movement, passing flatus. Hemoglobin 9.6, platelets 147. 05/26/2024 maintained on empiric IV antibiotics, IV fluid hydration. Evaluated by oncology, brain MRI, bone scan, chest CT ordered with IR consulted for liver biopsy.. Patient complains of feeling" loopy". Denies chest pain, palpitations or shortness of breath. 05/27. Patient seen and examined. Blood work done this morning showed WBC 20.45, hemoglobin 8.1, platelet count 130, sodium 130s, potassium 5.3, patient family at the bedside. Patient is lethargic. Able to maintain conversation. CT of the abdomen showed multiple hepatic masses consistent with malignancy. Complaining of constipation REVIEW OF SYSTEMS: CONSTITUTIONAL: No fever, no malaise,. CARDIOVASCULAR: No chest pain, no palpitations, no syncope. PULMONARY: No shortness of breath, no cough, GASTROINTESTINAL: No diarrhea, no nausea, no vomiting NEUROLOGICAL: No headaches, no weakness, PHYSICAL EXAMINATION: GENERAL: The patient is lethargic, chronically ill looking HEENT: Pupils are round and equally reacting to light. EOMI. No scleral icterus. No conjunctival pallor. Normocephalic, atraumatic. No pharyngeal erythema. No thyromegaly. CARDIOVASCULAR: S1 and S2 present. No murmurs, rubs, or gallops. PULMONARY: Chest is clear to auscultation, no wheezing or crackles. ABDOMEN: Soft, nontender, nondistended, normoactive bowel sounds. No palpable organomegaly. MUSCULOSKELETAL: No joint swelling or deformity. EXTREMITIES: No cyanosis, clubbing, or pedal edema. NEUROLOGICAL: Gross neurological examination did not reveal any focal deficits. SKIN: No rashes. Assessment and plan Sepsis, ruling out , probable SIRS. Leukocytosis improving Lactic acidosis, resolved with IV fluid hydration Acute hypoxic respiratory failure Dehydration Acute on chronic renal failure, stage III, ATN, home medications Z estoretic/lisinopril on hold, Metabolic acidosis secondary to the above Generalized weakness status post fall Acute metabolic encephalopathy secondary to the above Recent diagnosis of liver cancer 3 weeks ago, scheduled for PET scan 1016 History of alcohol abuse History of hepatitis C COPD Sleep apnea, wears CPAP Diabetes mellitus Gastroesophageal reflux disease Hypertension Hyperlipidemia BPH Bilateral corneal transplant 2020 OA, multiple joint surgeries, fusion L1- L5 Ongoing nicotine dependence Monitor vital signs Monitor CBC Monitor CMP Ordered ammonia levels Continue bicarb drip Continue IV Rocephin ID following IR consulted for liver biopsy Oncology following Labs and medication were reviewed.. Continue same treatment. Continue with symptomatic treatment. Resume home medication. Monitor labs and vitals. DVT and GI prophylaxis. Further recommendations as per clinical course of the patient Dictation was produced using [employer] dictation software. please excuse any grammatical, word or spelling errors. Objective - Vital Signs Vital signs: Vital Signs Temp 97.5 F L 05/27/24 12:15 Pulse 100 05/27/24 15:10 Resp 16 05/27/24 12:15 BP 114/58 05/27/24 12:15 Pulse Ox 95 05/27/24 12:15 FiO2 Intake & Output 05/26/24 05/27/24 05/27/24 18:59 06:59 18:59 Intake Total 1080 Output Total 750 1000 Balance -750 80 Weight 59.5 kg Intake: Oral 1080 Output: Urine 750 1000 Other: Voiding Method Incontinent Incontinent Incontinent External Catheter External Catheter External Catheter - Labs CBC & Chem 7: 05/27/24 05:02 05/27/24 05:02 Labs: Abnormal Lab Results - Last 24 Hours (Table) 05/26/24 05/26/24 05/27/24 Range/Units 17:12 20:00 05:02 WBC 20.45 H (4.50-10.00) X 10*3/uL RBC 3.92 L (4.40-5.60) X 10*6/uL Hgb 10.1 L (13.0-17.0) g/dL Hct 33.7 L (39.6-50.0) % MCH 25.8 L (27.0-32.0) pg MCHC 30.0 L (32.0-37.0) g/dL RDW 18.3 H (11.5-14.5) % Plt Count 130 L (140-440) X 10*3/uL Immature Gran # 0.19 H (0.00-0.04) X 10*3/uL Neutrophils # 18.13 H (1.80-7.70) X 10*3/uL Carbon Dioxide (21.6-31.8) mmol/L Anion Gap (4.00-12.00) mmol/L BUN (9.0-27.0) mg/dL BUN/Creatinine Ratio (12.00-20.00) Ratio POC Glucose (mg/dL) 132 H 121 H (70-110) mg/dL Calcium (8.7-10.3) mg/dL 05/27/24 05/27/24 05/27/24 Range/Units 05:02 07:16 12:17 WBC (4.50-10.00) X 10*3/uL RBC (4.40-5.60) X 10*6/uL Hgb (13.0-17.0) g/dL Hct (39.6-50.0) % MCH (27.0-32.0) pg MCHC (32.0-37.0) g/dL RDW (11.5-14.5) % Plt Count (140-440) X 10*3/uL Immature Gran # (0.00-0.04) X 10*3/uL Neutrophils # (1.80-7.70) X 10*3/uL Carbon Dioxide 16.7 L (21.6-31.8) mmol/L Anion Gap 14.30 H (4.00-12.00) mmol/L BUN 45.2 H (9.0-27.0) mg/dL BUN/Creatinine Ratio 45.20 H (12.00-20.00) Ratio POC Glucose (mg/dL) 111 H 168 H (70-110) mg/dL Calcium 7.7 L (8.7-10.3) mg/dL Microbiology - Last 24 Hours (Table) 05/24/24 02:45 Blood Culture - Preliminary Blood 05/24/24 02:30 Blood Culture - Preliminary Blood
[2024-05-27] MEDS: bisacodyL 5 MG TABLET.DR PO PRN (15:37)
[2024-05-27 17:12] LABS: Glucose,Whole Blood 173 mg/dL (70-110)
--- NOTE | 2024-05-27 17:39 | P.PN ---
Subjective patient is seen for follow-up for acute kidney injury. Renal function has improved. Serum creatinine decreased to 1.0 mg/dL. Maintained on IV fluids No significant complaints today. Objective - Vital Signs Vital signs: Vital Signs Temp 97.5 F L 05/27/24 12:15 Pulse 100 05/27/24 15:10 Resp 16 05/27/24 12:15 BP 114/58 05/27/24 12:15 Pulse Ox 95 05/27/24 12:15 FiO2 Intake & Output 05/26/24 05/27/24 05/27/24 18:59 06:59 18:59 Intake Total 1080 Output Total 750 1000 Balance -750 80 Weight 59.5 kg Intake: Oral 1080 Output: Urine 750 1000 Other: Voiding Method Incontinent Incontinent Incontinent External Catheter External Catheter External Catheter - Exam patient is awake, comfortable, no acute distress. Examination of the heart S1 and S2 Examination of the lungs bilateral breath sounds are heard Abdomen is soft nontender Examination of lower extremities shows no significant edema - Labs CBC & Chem 7: 05/27/24 05:02 05/27/24 05:02 Labs: Abnormal Lab Results - Last 24 Hours (Table) 05/26/24 05/27/24 05/27/24 Range/Units 20:00 05:02 05:02 WBC 20.45 H (4.50-10.00) X 10*3/uL RBC 3.92 L (4.40-5.60) X 10*6/uL Hgb 10.1 L (13.0-17.0) g/dL Hct 33.7 L (39.6-50.0) % MCH 25.8 L (27.0-32.0) pg MCHC 30.0 L (32.0-37.0) g/dL RDW 18.3 H (11.5-14.5) % Plt Count 130 L (140-440) X 10*3/uL Immature Gran # 0.19 H (0.00-0.04) X 10*3/uL Neutrophils # 18.13 H (1.80-7.70) X 10*3/uL Carbon Dioxide 16.7 L (21.6-31.8) mmol/L Anion Gap 14.30 H (4.00-12.00) mmol/L BUN 45.2 H (9.0-27.0) mg/dL BUN/Creatinine Ratio 45.20 H (12.00-20.00) Ratio POC Glucose (mg/dL) 121 H (70-110) mg/dL Calcium 7.7 L (8.7-10.3) mg/dL 05/27/24 05/27/24 05/27/24 Range/Units 07:16 12:17 17:09 WBC (4.50-10.00) X 10*3/uL RBC (4.40-5.60) X 10*6/uL Hgb (13.0-17.0) g/dL Hct (39.6-50.0) % MCH (27.0-32.0) pg MCHC (32.0-37.0) g/dL RDW (11.5-14.5) % Plt Count (140-440) X 10*3/uL Immature Gran # (0.00-0.04) X 10*3/uL Neutrophils # (1.80-7.70) X 10*3/uL Carbon Dioxide (21.6-31.8) mmol/L Anion Gap (4.00-12.00) mmol/L BUN (9.0-27.0) mg/dL BUN/Creatinine Ratio (12.00-20.00) Ratio POC Glucose (mg/dL) 111 H 168 H 173 H (70-110) mg/dL Calcium (8.7-10.3) mg/dL Microbiology - Last 24 Hours (Table) 05/24/24 02:45 Blood Culture - Preliminary Blood 05/24/24 02:30 Blood Culture - Preliminary Blood Assessment and Plan Assessment: 1. Acute kidney injury, ATN, improved. Maintained on IV fluids. UA is complet [place] benign. No obstruction noted on ultrasound. LOIDA inhibitor's on hold. 2. History of fall 3. Mental status changes 4. Hyperkalemia associated with acute kidney injury in the setting of use of A CE inhibitor's. 5. Non-gap metabolic acidosis secondary to acute kidney injury. No history of diarrhea. 6. Multiple hepatic masses with high suspicion for malignancy Plan: continue with IV fluids. Switch to IV bicarb repeat labs in a.m.
[2024-05-27 20:32] LABS: Glucose,Whole Blood 153 mg/dL (70-110)
[2024-05-27] MEDS: polyethylene glycoL 3350 17 GM POWD.PACK PO SCH (21:43)
[2024-05-27] MEDS: LACTULOSE 20 GM/30 ML CUP PO SCH (21:43)
--- NOTE | 2024-05-27 22:47 | P.PN ---
Subjective Progress Note Date: 05/26/24 Principal diagnosis: Reason for follow-up is leukocytosis Patient is a 69-year-old male with a past medical history significant for diabetes mellitus COPD hypertension hyperlipidemia osteoarthritis hepatitis C has been diagnosed with liver cancer approximately 2 weeks ago before presentation to the hospital has been brought in with confusion weakness did have elevated white count prompted this consultation. On today's evaluation that is 05/26/2024,the patient denies any fever or any chills, patient is breathing comfortably on room air, the patient denies chest pain shortness of breath and no significant cough, patient denies abdominal pain, no nausea vomiting or diarrhea. Patient white count is down to 15.68, blood cultures are pending Objective - Vital Signs Vital signs: Vital Signs Temp 97.9 F 05/26/24 14:06 Pulse 93 05/26/24 14:06 Resp 15 05/26/24 14:06 BP 114/69 05/26/24 14:06 Pulse Ox 91 L 05/26/24 13:03 FiO2 Intake & Output 05/25/24 05/26/24 05/26/24 18:59 06:59 18:59 Intake Total 2482 850 Output Total 700 1300 Balance 1782 -450 Weight 59.5 kg Intake: IV 10 Invasive Line 2 10 Oral 2482 840 Output: Urine 700 1300 Other: Voiding Method Diaper Incontinent Incontinent Incontinent External Catheter External Catheter External Catheter - Exam GENERAL DESCRIPTION: An elderly male lying in bed in no distress RESPIRATORY SYSTEM: Unlabored breathing , decreased breath sounds at bases HEART: S1 S2 regular rate and rhythm , ABDOMEN: Soft , right upper quadrant tenderness EXTREMITIES: No edema feet - Labs CBC & Chem 7: 05/27/24 05:02 05/27/24 05:02 Labs: Abnormal Lab Results - Last 24 Hours (Table) 05/25/24 05/25/24 Range/Units 17:09 19:57 POC Glucose (mg/dL) 151 H 129 H (70-110) mg/dL Microbiology - Last 24 Hours (Table) 05/24/24 02:45 Blood Culture - Preliminary Blood 05/24/24 02:30 Blood Culture - Preliminary Blood Assessment and Plan (1) Leukocytosis Current Visit: Yes Status: Acute Code(s): D72.829 - ELEVATED WHITE BLOOD CELL COUNT, UNSPECIFIED SNOMED Code(s): 643491158 Plan: 1patient presented to hospital with generalized weakness and decreased appetite and the patient also noted to have significant urine white count 21,000 and this patient has been recently diagnosed with a liver cancer patient has been tender right upper quadrant area more likely related to the hepatobiliary disease. 2patient did have CT abdominal pelvis with oral contrast only because of his kidney function did show Innumerable hepatic masses, prominent gastric hepatic ligament lymph nodes, patient did have a CT of the chest bone scan and MRI order for further workup for possible malignancy 3patient white count is trending down continue with empiric Rocephin while waiting for the workup to be completed Family at the bedside questions answered Dictation was produced using [employer] dictation software. please excuse any grammatical, word or spelling errors. Time with Patient: Less than 30
--- NOTE | 2024-05-27 22:48 | P.PN ---
Subjective Progress Note Date: 05/27/24 Principal diagnosis: Reason for follow-up is leukocytosis Patient is a 69-year-old male with a past medical history significant for diabetes mellitus COPD hypertension hyperlipidemia osteoarthritis hepatitis C has been diagnosed with liver cancer approximately 2 weeks ago before presentation to the hospital has been brought in with confusion weakness did have elevated white count prompted this consultation. On today's evaluation that is 05/27/2024 the patient continues to be afebrile, the patient is breathing comfortably on room air patient denies having any chest pain or cough, no nausea no vomiting abdominal pain or diarrhea Patient did have a CT of the chest with some nodules but no suspicious metastatic disease, bone scan and MRI were negative, the patient white count is up to 20.45 Objective - Vital Signs Vital signs: Vital Signs Temp 97.9 F 05/27/24 20:00 Pulse 99 05/27/24 20:00 Resp 12 05/27/24 20:00 BP 122/75 05/27/24 20:00 Pulse Ox 93 L 05/27/24 20:00 FiO2 Intake & Output 05/27/24 05/27/24 05/28/24 06:59 18:59 06:59 Intake Total 1080 Output Total 1000 500 Balance 80 -500 Intake: Oral 1080 Output: Urine 1000 500 Other: Voiding Method Incontinent Incontinent External Catheter External Catheter - Exam GENERAL DESCRIPTION: An elderly male lying in bed in no distress RESPIRATORY SYSTEM: Unlabored breathing , decreased breath sounds at bases HEART: S1 S2 regular rate and rhythm , ABDOMEN: Soft , right upper quadrant tenderness EXTREMITIES: No edema feet - Labs CBC & Chem 7: 05/27/24 05:02 05/27/24 05:02 Labs: Abnormal Lab Results - Last 24 Hours (Table) 05/27/24 05/27/24 05/27/24 Range/Units 05:02 05:02 07:16 WBC 20.45 H (4.50-10.00) X 10*3/uL RBC 3.92 L (4.40-5.60) X 10*6/uL Hgb 10.1 L (13.0-17.0) g/dL Hct 33.7 L (39.6-50.0) % MCH 25.8 L (27.0-32.0) pg MCHC 30.0 L (32.0-37.0) g/dL RDW 18.3 H (11.5-14.5) % Plt Count 130 L (140-440) X 10*3/uL Immature Gran # 0.19 H (0.00-0.04) X 10*3/uL Neutrophils # 18.13 H (1.80-7.70) X 10*3/uL Carbon Dioxide 16.7 L (21.6-31.8) mmol/L Anion Gap 14.30 H (4.00-12.00) mmol/L BUN 45.2 H (9.0-27.0) mg/dL BUN/Creatinine Ratio 45.20 H (12.00-20.00) Ratio POC Glucose (mg/dL) 111 H (70-110) mg/dL Calcium 7.7 L (8.7-10.3) mg/dL 05/27/24 05/27/24 05/27/24 Range/Units 12:17 17:09 20:31 WBC (4.50-10.00) X 10*3/uL RBC (4.40-5.60) X 10*6/uL Hgb (13.0-17.0) g/dL Hct (39.6-50.0) % MCH (27.0-32.0) pg MCHC (32.0-37.0) g/dL RDW (11.5-14.5) % Plt Count (140-440) X 10*3/uL Immature Gran # (0.00-0.04) X 10*3/uL Neutrophils # (1.80-7.70) X 10*3/uL Carbon Dioxide (21.6-31.8) mmol/L Anion Gap (4.00-12.00) mmol/L BUN (9.0-27.0) mg/dL BUN/Creatinine Ratio (12.00-20.00) Ratio POC Glucose (mg/dL) 168 H 173 H 153 H (70-110) mg/dL Calcium (8.7-10.3) mg/dL Microbiology - Last 24 Hours (Table) 05/24/24 02:45 Blood Culture - Preliminary Blood 05/24/24 02:30 Blood Culture - Preliminary Blood Assessment and Plan (1) Leukocytosis Current Visit: Yes Status: Acute Code(s): D72.829 - ELEVATED WHITE BLOOD CELL COUNT, UNSPECIFIED SNOMED Code(s): 078749103 Plan: 1patient presented to hospital with generalized weakness and decreased appetite and the patient also noted to have significant urine white count 21,000 and this patient has been recently diagnosed with a liver cancer patient has been tender right upper quadrant area more likely related to the hepatobiliary disease. 2patient did have CT abdominal pelvis with oral contrast only because of his kidney function did show Innumerable hepatic masses, prominent gastric hepatic ligament lymph nodes, patient did have a CT of the chest with a small nodule bone scan was negative for any metastatic disease and MRI brain did not show any acute abnormality 3patient white count was trending initially down but now jumped up again we will repeat his inflammatory markers and CBC with a.m. lab continue with Jamie Dictation was produced using [employer] dictation software. please excuse any grammatical, word or spelling errors. Time with Patient: Less than 30
[2024-05-28 07:19] LABS: Glucose,Whole Blood 219 mg/dL (70-110)
[2024-05-28 09:58] LABS: Basophils # (A) 0.02 X 10*3/uL (0.00-0.10); Basophils % (A) 0.1 %; Eosinophils # (A) 0.07 X 10*3/uL (0.04-0.35); Eosinophils % (A) 0.4 %; HCT 30.9 % (39.6-50.0); HGB 9.5 g/dL (13.0-17.0); Lymphocytes # (A) 0.92 X 10*3/uL (0.90-5.00); Lymphocytes % (A) 5.3 %; MCH 25.5 pg (27.0-32.0); MCHC 30.7 g/dL (32.0-37.0); MCV 83.1 FL (80.0-97.0); Monocytes # (A) 0.77 X 10*3/uL (0.20-1.00); Monocytes % (A) 4.4 %; NRBC Per 100 WBC 0 X 10*3/uL (0.00-0.01); Neutrophils # (A) 15.55 X 10*3/uL (1.80-7.70); Neutrophils % (A) 88.9 %; Platelet Count 118 X 10*3/uL (140-440); RBC 3.72 X 10*6/uL (4.40-5.60); RDW 18.3 % (11.5-14.5); WBC 17.48 X 10*3/uL (4.50-10.00)
[2024-05-28 10:25] LABS: ALT 25 U/L (10-49); AST 79 U/L (14-35); Albumin 2.1 g/dL (3.8-4.9); Alkaline Phosphatase 781 U/L (41-126); BUN/Creat Ratio 44.44 Ratio (12.00-20.00); Calcium 7.4 mg/dL (8.7-10.3); Carbon Dioxide 23.8 mmol/L (21.6-31.8); Chloride 99 mmol/L (96-109); Glucose 216 mg/dL (70-110); Potassium 4.6 mmol/L (3.5-5.5); Sodium 134 mmol/L (135-145); Total Bilirubin 0.4 mg/dL (0.3-1.2); Total Protein 5.1 g/dL (6.2-8.2)
--- NOTE | 2024-05-28 11:53 | P.PN ---
Subjective patient is seen for follow-up for acute kidney injury. Renal function has improved. Serum creatinine decreased to 0.9 mg/dL. Maintained on IV bicarb No significant complaints today. Objective - Vital Signs Vital signs: Vital Signs Temp 98.2 F 05/28/24 07:15 Pulse 102 H 05/28/24 07:15 Resp 16 05/28/24 07:15 BP 148/82 05/28/24 07:15 Pulse Ox 91 L 05/28/24 07:15 FiO2 Intake & Output 05/27/24 05/28/24 05/28/24 18:59 06:59 18:59 Intake Total 240 Output Total 500 850 Balance -500 -610 Intake: Oral 240 Output: Urine 500 850 Other: Voiding Method Incontinent Incontinent Incontinent External Catheter External Catheter External Catheter - Exam patient is awake, comfortable, no acute distress. Examination of the heart S1 and S2 Examination of the lungs bilateral breath sounds are heard Abdomen is soft nontender Examination of lower extremities shows no significant edema - Labs CBC & Chem 7: 05/28/24 04:38 05/28/24 04:38 Labs: Abnormal Lab Results - Last 24 Hours (Table) 05/27/24 05/27/24 05/27/24 Range/Units 12:17 17:09 20:31 WBC (4.50-10.00) X 10*3/uL RBC (4.40-5.60) X 10*6/uL Hgb (13.0-17.0) g/dL Hct (39.6-50.0) % MCH (27.0-32.0) pg MCHC (32.0-37.0) g/dL RDW (11.5-14.5) % Plt Count (140-440) X 10*3/uL Immature Gran # (0.00-0.04) X 10*3/uL Neutrophils # (1.80-7.70) X 10*3/uL Sodium (135-145) mmol/L BUN (9.0-27.0) mg/dL BUN/Creatinine Ratio (12.00-20.00) Ratio Glucose (70-110) mg/dL POC Glucose (mg/dL) 168 H 173 H 153 H (70-110) mg/dL AST (14-35) U/L Alkaline Phosphatase (41-126) U/L Total Protein (6.2-8.2) g/dL Albumin (3.8-4.9) g/dL Albumin/Globulin Ratio (1.60-3.17) Ratio 05/28/24 05/28/24 05/28/24 Range/Units 04:38 04:38 07:18 WBC 17.48 H (4.50-10.00) X 10*3/uL RBC 3.72 L (4.40-5.60) X 10*6/uL Hgb 9.5 L (13.0-17.0) g/dL Hct 30.9 L (39.6-50.0) % MCH 25.5 L (27.0-32.0) pg MCHC 30.7 L (32.0-37.0) g/dL RDW 18.3 H (11.5-14.5) % Plt Count 118 L (140-440) X 10*3/uL Immature Gran # 0.15 H (0.00-0.04) X 10*3/uL Neutrophils # 15.55 H (1.80-7.70) X 10*3/uL Sodium 134 L (135-145) mmol/L BUN 40.0 H (9.0-27.0) mg/dL BUN/Creatinine Ratio 44.44 H (12.00-20.00) Ratio Glucose 216 H (70-110) mg/dL POC Glucose (mg/dL) 219 H (70-110) mg/dL AST 79 H (14-35) U/L Alkaline Phosphatase 781 H (41-126) U/L Total Protein 5.1 L (6.2-8.2) g/dL Albumin 2.1 L (3.8-4.9) g/dL Albumin/Globulin Ratio 0.70 L (1.60-3.17) Ratio Microbiology - Last 24 Hours (Table) 05/24/24 02:45 Blood Culture - Preliminary Blood 05/24/24 02:30 Blood Culture - Preliminary Blood Assessment and Plan Assessment: 1. Acute kidney injury, ATN, improved. Maintained on IV fluids. UA is completely benign. No obstruction noted on ultrasound. LOIDA inhibitor's on hold. 2. History of fall 3. Mental status changes 4. Hyperkalemia associated with acute kidney injury in the setting of use of LOIDA inhibitor's. 5. Non-gap metabolic acidosis secondary to acute kidney injury. No history of diarrhea. 6. Multiple hepatic masses with high suspicion for malignancy Plan: continue with IV bicarb for 1 more day. repeat labs in a.m.
[2024-05-28 12:09] LABS: Glucose,Whole Blood 229 mg/dL (70-110)
--- NOTE | 2024-05-28 12:47 | P.PN ---
Subjective Progress Note Date: 05/28/24 69-year-old gentleman with past medical history significant for recently reported diagnosis of liver cancer approximately 2 weeks ago, scheduled for PET scan tomorrow transported to the ER via EMS related to increased weakness, confusion and fall. Patient reports poor appetite, sore throat, loose congested cough, occasionally productive. Denies nausea, vomiting. Afebrile, WBC 21, lactic acid 2.9, 1.7, hemoglobin 11, platelets 185, INR 1.2. Sodium 134, potassium 5.6, bicarb 18, BUN 114, creatinine 1.64. Glucose 376, calcium 7.4, Phos 4.7 magnesium 2 alk phos 517, troponin negative x 1, ammonia less than 9, albumin 2.4. Viral studies negative. Brain CT reported no acute intracranial abnormality. Chest x-ray reported no acute cardiopulmonary process. EKG reported sinus tachycardia, 05/25/2024 continues on IV fluid hydration, bicarb 20.7, BUN 78.9, creatinine 1.2. Renal ultrasound reported enlarged heterogenous liver scattered masses compatible with diagnosis of liver cancer no obstruction/no hydronephrosis. CT of abdomen pelvis reported innumerable hepatic masses poorly visualized, compatible with history of malignancy, prominent gastric hepatic ligament lymph nodes concerning for malignancy and fractured left L2 pedicle screw. Complains of chronic back pain. Sensorium slowly improving. Continues on antibiotics, cough and abdominal pain has lessened. Afebrile, WBC decreased to 15.68. no bowel movement, passing flatus. Hemoglobin 9.6, platelets 147. 05/26/2024 maintained on empiric IV antibiotics, IV fluid hydration. Evaluated by oncology, brain MRI, bone scan, chest CT ordered with IR consulted for liver biopsy.. Patient complains of feeling" loopy". Denies chest pain, palpitations or shortness of breath. 05/27. Patient seen and examined. Blood work done this morning showed WBC 20.45, hemoglobin 8.1, platelet count 130, sodium 130s, potassium 5.3, patient family at the bedside. Patient is lethargic. Able to maintain conversation. CT of the abdomen showed multiple hepatic masses consistent with malignancy. Complaining of constipation 05/28. Patient seen and examined. Blood work done showed WBC 17.48, hemoglobin 9.5, sodium 134, potassium 4.6, BUN 40, creatinine 0.9 ammonia was 9. Patient had a bowel movement this morning. Patient is more alert compared to yesterday REVIEW OF SYSTEMS: CONSTITUTIONAL: No fever, no malaise,. CARDIOVASCULAR: No chest pain, no palpitations, no syncope. PULMONARY: No shortness of breath, no cough, GASTROINTESTINAL: No diarrhea, no nausea, no vomiting NEUROLOGICAL: No headaches, no weakness, PHYSICAL EXAMINATION: GENERAL: The patient is lethargic, chronically ill looking HEENT: Pupils are round and equally reacting to light. EOMI. No scleral icterus. No conjunctival pallor. Normocephalic, atraumatic. No pharyngeal erythema. No thyromegaly. CARDIOVASCULAR: S1 and S2 present. No murmurs, rubs, or gallops. PULMONARY: Chest is clear to auscultation, no wheezing or crackles. ABDOMEN: Soft, nontender, nondistended, normoactive bowel sounds. No palpable organomegaly. MUSCULOSKELETAL: No joint swelling or deformity. EXTREMITIES: No cyanosis, clubbing, or pedal edema. NEUROLOGICAL: Gross neurological examination did not reveal any focal deficits. SKIN: No rashes. Assessment and plan Sepsis, ruling out , probable SIRS. Leukocytosis improving Lactic acidosis, resolved with IV fluid hydration Acute hypoxic respiratory failure Dehydration Acute on chronic renal failure, stage III, ATN, home medications Zestoretic/lisinopril on hold, Metabolic acidosis secondary to the above Generalized weakness status post fall Acute metabolic encephalopathy secondary to the above Recent diagnosis of liver cancer 3 weeks ago, scheduled for PET scan 101 History of alcohol abuse History of hepatitis C COPD Sleep apnea, wears CPAP Diabetes mellitus Gastroesophageal reflux disease Hypertension Hyperlipidemia BPH Bilateral corneal transplant 2020 OA, multiple joint surgeries, fusion L1- L5 Ongoing nicotine dependence Monitor vital signs Monitor CBC Monitor CMP Ordered ammonia levels Continue bicarb drip Continue IV Rocephin ID following IR consulted for liver biopsy Oncology following Nephrology following Labs and medication were reviewed.. Continue same treatment. Continue with symptomatic treatment. Resume home medication. Monitor labs and vitals. DVT and GI prophylaxis. Further recommendations as per clinical course of the patient Dictation was produced using [employer] dictation software. please excuse any grammatical, word or spelling errors. Objective - Vital Signs Vital signs: Vital Signs Temp 98.2 F 05/28/24 07:15 Pulse 102 H 05/28/24 07:15 Resp 16 05/28/24 07:15 BP 148/82 05/28/24 07:15 Pulse Ox 91 L 05/28/24 07:15 FiO2 Intake & Output 05/27/24 05/28/24 05/28/24 18:59 06:59 18:59 Intake Total 240 Output Total 500 850 Balance -500 -610 Intake: Oral 240 Output: Urine 500 850 Other: Voiding Method Incontinent Incontinent Incontinent External Catheter External Catheter External Catheter - Labs CBC & Chem 7: 05/28/24 04:38 05/28/24 04:38 Labs: Abnormal Lab Results - Last 24 Hours (Table) 05/27/24 05/27/24 05/27/24 Range/Units 12:17 17:09 20:31 WBC (4.50-10.00) X 10*3/uL RBC (4.40-5.60) X 10*6/uL Hgb (13.0-17.0) g/dL Hct (39.6-50.0) % MCH (27.0-32.0) pg MCHC (32.0-37.0) g/dL RDW (11.5-14.5) % Plt Count (140-440) X 10*3/uL Immature Gran # (0.00-0.04) X 10*3/uL Neutrophils # (1.80-7.70) X 10*3/uL Sodium (135-145) mmol/L BUN (9.0-27.0) mg/dL BUN/Creatinine Ratio (12.00-20.00) Ratio Glucose (70-110) mg/dL POC Glucose (mg/dL) 168 H 173 H 153 H (70-110) mg/dL AST (14-35) U/L Alkaline Phosphatase (41-126) U/L Total Protein (6.2-8.2) g/dL Albumin (3.8-4.9) g/dL Albumin/Globulin Ratio (1.60-3.17) Ratio 05/28/24 05/28/24 05/28/24 Range/Units 04:38 04:38 07:18 WBC 17.48 H (4.50-10.00) X 10*3/uL RBC 3.72 L (4.40-5.60) X 10*6/uL Hgb 9.5 L (13.0-17.0) g/dL Hct 30.9 L (39.6-50.0) % MCH 25.5 L (27.0-32.0) pg MCHC 30.7 L (32.0-37.0) g/dL RDW 18.3 H (11.5-14.5) % Plt Count 118 L (140-440) X 10*3/uL Immature Gran # 0.15 H (0.00-0.04) X 10*3/uL Neutrophils # 15.55 H (1.80-7.70) X 10*3/uL Sodium 134 L (135-145) mmol/L BUN 40.0 H (9.0-27.0) mg/dL BUN/Creatinine Ratio 44.44 H (12.00-20.00) Ratio Glucose 216 H (70-110) mg/dL POC Glucose (mg/dL) 219 H (70-110) mg/dL AST 79 H (14-35) U/L Alkaline Phosphatase 781 H (41-126) U/L Total Protein 5.1 L (6.2-8.2) g/dL Albumin 2.1 L (3.8-4.9) g/dL Albumin/Globulin Ratio 0.70 L (1.60-3.17) Ratio Microbiology - Last 24 Hours (Table) 05/24/24 02:45 Blood Culture - Preliminary Blood 05/24/24 02:30 Blood Culture - Preliminary Blood
[2024-05-28 17:12] LABS: Glucose,Whole Blood 179 mg/dL (70-110)
[2024-05-28 20:12] LABS: Glucose,Whole Blood 145 mg/dL (70-110)
--- NOTE | 2024-05-28 22:22 | P.PN ---
Subjective Progress Note Date: 05/28/24 Principal diagnosis: Reason for follow-up is leukocytosis Patient is a 69-year-old male with a past medical history significant for diabetes mellitus COPD hypertension hyperlipidemia osteoarthritis hepatitis C has been diagnosed with liver cancer approximately 2 weeks ago before presentation to the hospital has been brought in with confusion weakness did have elevated white count prompted this consultation. On today's evaluation that is 05/28/2024, the patient continues to be afebrile, the patient is on room air and breathing comfortably, the Pt denies having any chest pain or cough, the patient still have some abdominal pain however no worsening no vomiting or diarrhea has been reported by the nursing staff. Patient white count is down to 17.48, creatinine 0.9 blood culture has been negative so far Objective - Vital Signs Vital signs: Vital Signs Temp 98.5 F 05/28/24 12:01 Pulse 88 05/28/24 15:10 Resp 16 05/28/24 12:01 BP 131/76 05/28/24 12:01 Pulse Ox 92 L 05/28/24 12:01 FiO2 Intake & Output 05/27/24 05/28/24 05/28/24 18:59 06:59 18:59 Intake Total 240 Output Total 500 850 900 Balance -500 610 900 Intake: Oral 240 Output: Urine 500 850 900 Other: Voiding Method Incontinent Incontinent Incontinent External Catheter External Catheter External Catheter - Labs CBC & Chem 7: 05/28/24 04:38 05/28/24 04:38 Labs: Abnormal Lab Results - Last 24 Hours (Table) 05/27/24 05/28/24 05/28/24 Range/Units 20:31 04:38 04:38 WBC 17.48 H (4.50-10.00) X 10*3/uL RBC 3.72 L (4.40-5.60) X 10*6/uL Hgb 9.5 L (13.0-17.0) g/dL Hct 30.9 L (39.6-50.0) % MCH 25.5 L (27.0-32.0) pg MCHC 30.7 L (32.0-37.0) g/dL RDW 18.3 H (11.5-14.5) % Plt Count 118 L (140-440) X 10*3/uL Immature Gran # 0.15 H (0.00-0.04) X 10*3/uL Neutrophils # 15.55 H (1.80-7.70) X 10*3/uL Sodium 134 L (135-145) mmol/L BUN 40.0 H (9.0-27.0) mg/dL BUN/Creatinine Ratio 44.44 H (12.00-20.00) Ratio Glucose 216 H (70-110) mg/dL POC Glucose (mg/dL) 153 H (70-110) mg/dL AST 79 H (14-35) U/L Alkaline Phosphatase 781 H (41-126) U/L Total Protein 5.1 L (6.2-8.2) g/dL Albumin 2.1 L (3.8-4.9) g/dL Albumin/Globulin Ratio 0.70 L (1.60-3.17) Ratio 05/28/24 05/28/24 05/28/24 Range/Units 07:18 12:04 17:10 WBC (4.50-10.00) X 10*3/uL RBC (4.40-5.60) X 10*6/uL Hgb (13.0-17.0) g/dL Hct (39.6-50.0) % MCH (27.0-32.0) pg MCHC (32.0-37.0) g/dL RDW (11.5-14.5) % Plt Count (140-440) X 10*3/uL Immature Gran # (0.00-0.04) X 10*3/uL Neutrophils # (1.80-7.70) X 10*3/uL Sodium (135-145) mmol/L BUN (9.0-27.0) mg/dL BUN/Creatinine Ratio (12.00-20.00) Ratio Glucose (70-110) mg/dL POC Glucose (mg/dL) 219 H 229 H 179 H (70-110) mg/dL AST (14-35) U/L Alkaline Phosphatase (41-126) U/L Total Protein (6.2-8.2) g/dL Albumin (3.8-4.9) g/dL Albumin/Globulin Ratio (1.60-3.17) Ratio Assessment and Plan (1) Leukocytosis Current Visit: Yes Status: Acute Code(s): D72.829 - ELEVATED WHITE BLOOD ROBYN L COUNT, UNSPECIFIED SNOMED Code(s): 468933201 Plan: 1patient presented to hospital with generalized weakness and decreased appetite and the patient also noted to have significant urine white count 21,000 and this patient has been recently diagnosed with a liver cancer patient has been tender right upper quadrant area more likely related to the hepatobiliary disease. 2patient did have CT abdominal pelvis with oral contrast only because of his kidney function did show Innumerable hepatic masses, prominent gastric hepatic ligament lymph nodes, patient did have a CT of the chest with a small nodule bone scan was negative for any metastatic disease and MRI brain did not show any acute abnormality 3patient white count trending down and we will continue with Rocephin and monitor clinical course closely Dictation was produced using [employer] dictation software. please excuse any grammatical, word or spelling errors. Time with Patient: Less than 30
[2024-05-29 07:55] LABS: Glucose,Whole Blood 179 mg/dL (70-110)
--- NOTE | 2024-05-29 08:38 | P.PN ---
Subjective Patient is seen in follow-up for acute kidney injury. Renal function back to baseline. Currently receiving a breathing treatment. Liver biopsy today. Vital signs are stable. General: No acute distress. HEENT: Head exam is unremarkable. LUNGS: No audible rhonchi or wheezes. HEART: Rate and Rhythm are regular. ABDOMEN: Nontender. EXTREMITITES: No edema. Objective - Vital Signs Vital signs: Vital Signs Temp 97.9 F 05/29/24 07:37 Pulse 92 05/29/24 08:14 Resp 20 05/29/24 07:37 BP 91/48 05/29/24 07:37 Pulse Ox 89 L 05/29/24 07:37 FiO2 Intake & Output 05/28/24 05/29/24 05/29/24 18:59 06:59 18:59 Intake Total 300 Output Total 900 600 Balance -900 -300 Intake: Oral 300 Output: Urine 900 600 Other: Voiding Method Incontinent Incontinent External Catheter External Catheter # Bowel Movements 1 1 - Labs CBC & Chem 7: 05/28/24 04:38 05/28/24 04:38 Labs: Abnormal Lab Results - Last 24 Hours (Table) 05/28/24 05/28/24 05/28/24 Range/Units 04:38 04:38 12:04 WBC 17.48 H (4.50-10.00) X 10*3/uL RBC 3.72 L (4.40-5.60) X 10*6/uL Hgb 9.5 L (13.0-17.0) g/dL Hct 30.9 L (39.6-50.0) % MCH 25.5 L (27.0-32.0) pg MCHC 30.7 L (32.0-37.0) g/dL RDW 18.3 H (11.5-14.5) % Plt Count 118 L (140-440) X 10*3/uL Immature Gran # 0.15 H (0.00-0.04) X 10*3/uL Neutrophils # 15.55 H (1.80-7.70) X 10*3/uL Sodium 134 L (135-145) mmol/L BUN 40.0 H (9.0-27.0) mg/dL BUN/Creatinine Ratio 44.44 H (12.00-20.00) Ratio Glucose 216 H (70-110) mg/dL POC Glucose (mg/dL) 229 H (70-110) mg/dL AST 79 H (14-35) U/L Alkaline Phosphatase 781 H (41-126) U/L Total Protein 5.1 L (6.2-8.2) g/dL Albumin 2.1 L (3.8-4.9) g/dL Albumin/Globulin Ratio 0.70 L (1.60-3.17) Ratio 05/28/24 05/28/24 05/29/24 Range/Units 17:10 20:10 07:53 WBC (4.50-10.00) X 10*3/uL RBC (4.40-5.60) X 10*6/uL Hgb (13.0-17.0) g/dL Hct (39.6-50.0) % MCH (27.0-32.0) pg MCHC (32.0-37.0) g/dL RDW (11.5-14.5) % Plt Count (140-440) X 10*3/uL Immature Gran # (0.00-0.04) X 10*3/uL Neutrophils # (1.80-7.70) X 10*3/uL Sodium (135-145) mmol/L BUN (9.0-27.0) mg/dL BUN/Creatinine Ratio (12.00-20.00) Ratio Glucose (70-110) mg/dL POC Glucose (mg/dL) 179 H 145 H 179 H (70-110) mg/dL AST (14-35) U/L Alkaline Phosphatase (41-126) U/L Total Protein (6.2-8.2) g/dL Albumin (3.8-4.9) g/dL Albumin/Globulin Ratio (1.60-3.17) Ratio Assessment and Plan Plan: Assessment: 1. Acute kidney injury secondary to ATN secondary to hypovolemia. Resolved. UA benign. No hydronephrosis noted on imaging. 2. Hepatic masses with concern for malignancy. Biopsy today. 3. Metabolic acidosis secondary to acute kidney injury improved with bicarb drip. 4. Hyperkalemia secondary to acute kidney injury and use of LOIDA inhibitor's. Resolved. Plan: Stop bicarb drip. Start normal saline at 50 cc an hour. Encouraged oral intake.
[2024-05-29] MEDS: SODIUM CHLORIDE 0.9% 1,000 ML IV SCH (08:45)
[2024-05-29 09:14] LABS: African American GFR (CKD) >90 (>60 ml/min/1.73 sqM); Anion Gap 9 mmol/L; Blood Urea Nitrogen 34 mg/dL (9-20); Calcium 7.3 mg/dL (8.4-10.2); Carbon Dioxide 28 mmol/L (22-30); Chloride 95 mmol/L (98-107); Glucose 165 mg/dL (74-99); Magnesium 1.5 mg/dL (1.6-2.3); Non-African American GFR(CKD) >90 (>60 ml/min/1.73 sqM); Potassium 4.7 mmol/L (3.5-5.1); Sodium 132 mmol/L (137-145)
--- NOTE | 2024-05-29 09:19 | P.PN ---
Subjective Progress Note Date: 05/29/24 69-year-old gentleman with past medical history significant for recently reported diagnosis of liver cancer approximately 2 weeks ago, scheduled for PET scan tomorrow transported to the ER via EMS related to increased weakness, confusion and fall. Patient reports poor appetite, sore throat, loose congested cough, occasionally productive. Denies nausea, vomiting. Afebrile, WBC 21, lactic acid 2.9, 1.7, hemoglobin 11, platelets 185, INR 1.2. Sodium 134, potassium 5.6, bicarb 18, BUN 114, creatinine 1.64. Glucose 376, calcium 7.4, Phos 4.7 magnesium 2 alk phos 517, troponin negative x 1, ammonia less than 9, albumin 2.4. Viral studies negative. Brain CT reported no acute intracranial abnormality. Chest x-ray reported no acute cardiopulmonary process. EKG reported sinus tachycardia, 05/25/2024 continues on IV fluid hydration, bicarb 20.7, BUN 78.9, creatinine 1.2. Renal ultrasound reported enlarged heterogenous liver scattered masses compatible with diagnosis of liver cancer no obstruction/no hydronephrosis. CT of abdomen pelvis reported innumerable hepatic masses poorly visualized, compatible with history of malignancy, prominent gastric hepatic ligament lymph nodes concerning for malignancy and fractured left L2 pedicle screw. Complains of chronic back pain. Sensorium slowly improving. Continues on antibiotics, cough and abdominal pain has lessened. Afebrile, WBC decreased to 15.68. no bowel movement, passing flatus. Hemoglobin 9.6, platelets 147. 05/26/2024 maintained on empiric IV antibiotics, IV fluid hydration. Evaluated by oncology, brain MRI, bone scan, chest CT ordered with IR consulted for liver biopsy.. Patient complains of feeling" loopy". Denies chest pain, palpitations or shortness of breath. 05/27. Patient seen and examined. Blood work done this morning showed WBC 20.45, hemoglobin 8.1, platelet count 130, sodium 130s, potassium 5.3, patient family at the bedside. Patient is lethargic. Able to maintain conversation. CT of the abdomen showed multiple hepatic masses consistent with malignancy. Complaining of constipation 05/28. Patient seen and examined. Blood work done showed WBC 17.48, hemoglobin 9.5, sodium 134, potassium 4.6, BUN 40, creatinine 0.9 ammonia was 9. Patient had a bowel movement this morning. Patient is more alert compared to yesterday 05/29. Pt seen and evaluated at bedside. He continues to complain of significant abdominal pain throughout. He has liver biopsy scheduled today. Labs reviewed today with sodium 132, BUN 34, Cr 0.75. Objective - Vital Signs Vital signs: Vital Signs Temp 97.9 F 05/29/24 07:37 Pulse 92 05/29/24 08:14 Resp 20 05/29/24 07:37 BP 91/48 05/29/24 07:37 Pulse Ox 89 L 05/29/24 07:37 FiO2 Intake & Output 05/28/24 05/29/24 05/29/24 18:59 06:59 18:59 Intake Total 300 Output Total 900 600 Balance -900 -300 Intake: Oral 300 Output: Urine 900 600 Other: Voiding Method Incontinent Incontinent External Catheter External Catheter # Bowel Movements 1 1 - Exam Gen: obese male in NAD CV: RRR, no murmur Lungs: CTAB Abd: soft, tender to palpation RUQ, cathy LQ, BS+ Neuro: alert, lethargic - Labs CBC & Chem 7: 05/28/24 04:38 05/29/24 08:44 Labs: Abnormal Lab Results - Last 24 Hours (Table) 05/28/24 05/28/24 05/28/24 Range/Units 04:38 04:38 12:04 WBC 17.48 H (4.50-10.00) X 10*3/uL RBC 3.72 L (4.40-5.60) X 10*6/uL Hgb 9.5 L (13.0-17.0) g/dL Hct 30.9 L (39.6-50.0) % MCH 25.5 L (27.0-32.0) pg MCHC 30.7 L (32.0-37.0) g/dL RDW 18.3 H (11.5-14.5) % Plt Count 118 L (140-440) X 10*3/uL Immature Gran # 0.15 H (0.00-0.04) X 10*3/uL Neutrophils # 15.55 H (1.80-7.70) X 10*3/uL Sodium 134 L (135-145) mmol/L Chloride (98-107) mmol/L BUN 40.0 H (9.0-27.0) mg/dL BUN/Creatinine Ratio 44.44 H (12.00-20.00) Ratio Glucose 216 H (70-110) mg/dL POC Glucose (mg/dL) 229 H (70-110) mg/dL Calcium (8.4-10.2) mg/dL Magnesium (1.6-2.3) mg/dL AST 79 H (14-35) U/L Alkaline Phosphatase 781 H (41-126) U/L Total Protein 5.1 L (6.2-8.2) g/dL Albumin 2.1 L (3.8-4.9) g/dL Albumin/Globulin Ratio 0.70 L (1.60-3.17) Ratio 05/28/24 05/28/24 05/29/24 Range/Units 17:10 20:10 07:53 WBC (4.50-10.00) X 10*3/uL RBC (4.40-5.60) X 10*6/uL Hgb (13.0-17.0) g/dL Hct (39.6-50.0) % MCH (27.0-32.0) pg MCHC (32.0-37.0) g/dL RDW (11.5-14.5) % Plt Count (140-440) X 10*3/uL Immature Gran # (0.00-0.04) X 10*3/uL Neutrophils # (1.80-7.70) X 10*3/uL Sodium (135-145) mmol/L Chloride (98-107) mmol/L BUN (9.0-27.0) mg/dL BUN/Creatinine Ratio (12.00-20.00) Ratio Glucose (70-110) mg/dL POC Glucose (mg/dL) 179 H 145 H 179 H (70-110) mg/dL Calcium (8.4-10.2) mg/dL Magnesium (1.6-2.3) mg/dL AST (14-35) U/L Alkaline Phosphatase (41-126) U/L Total Protein (6.2-8.2) g/dL Albumin (3.8-4.9) g/dL Albumin/Globulin Ratio (1.60-3.17) Ratio 05/29/24 Range/Units 08:44 WBC (4.50-10.00) X 10*3/uL RBC (4.40-5.60) X 10*6/uL Hgb (13.0-17.0) g/dL Hct (39.6-50.0) % MCH (27.0-32.0) pg MCHC (32.0-37.0) g/dL RDW (11.5-14.5) % Plt Count (140-440) X 10*3/uL Immature Gran # (0.00-0.04) X 10*3/uL Neutrophils # (1.80-7.70) X 10*3/uL Sodium 132 L (135-145) mmol/L Chloride 95 L (98-107) mmol/L BUN 34 H (9.0-27.0) mg/dL BUN/Creatinine Ratio (12.00-20.00) Ratio Glucose 165 H (70-110) mg/dL POC Glucose (mg/dL) (70-110) mg/dL Calcium 7.3 L (8.4-10.2) mg/dL Magnesium 1.5 L (1.6-2.3) mg/dL AST (14-35) U/L Alkaline Phosphatase (41-126) U/L Total Protein (6.2-8.2) g/dL Albumin (3.8-4.9) g/dL Albumin/Globulin Ratio (1.60-3.17) Ratio Assessment and Plan Plan: Continue with current regimen, IV abx, closely monitor renal function and trend WBC. Liver biposy per IR and Oncology following
[2024-05-29 12:34] LABS: Glucose,Whole Blood 111 mg/dL (70-110)
--- NOTE | 2024-05-29 12:36 | CT ---
EXAMINATION TYPE: CT biopsy liver DATE OF EXAM: 05/29/2024 11:52 AM CLINICAL INDICATION:Male, 69 years old with history of Liver lesions; COMPARISON: CT DLP: mGycm, Automated exposure control for dose reduction was used. Contrast used: mL of , none Oral contrast used: none ATTENDING: Dr. Lenin Delvalle TECHNIQUE: CT guided percutaneous biopsy of using coaxial method. One or more CT dose reduction strategies were utilized during this examination. Total CT dose 1761 mGycm. seconds. FINDINGS: The procedure was explained to the patient including risks of bleeding, bruising, infection, damage t o nearby organs and need for additional therapy including potential surgery. All questions were answ ered and consent was obtained. The previous studies were reviewed. The patient was placed on the CT couch in the supine position. The overlying skin was marked and prepped using sterile method. Timeout was taken per protocol. Follo wing administration of local anesthesia a 17 gauge coaxial needle was introduced on the right hepatic lobe mass. The coaxial needle tip was directed into the mass with CT guidance. Two 18 gauge coaxia l biopsies were then obtained. Following the procedure the needle was removed and sterile dressing was applied to the percutaneous site. Post biopsy imaging demonstrated no evidence of hemorrhage. A pproximately 20 to 30 cc of ascites was drained removal of biopsy catheter. Patient was taken for pos tprocedure observation in stable condition. IMPRESSIONS: Status post percutaneous right liver mass biopsy as described above. Pathology results pending. [facility], , 05/29/2024 12:33 PM
[2024-05-29] MEDS: MAGNESIUM SULFATE-D5W PMX 1 GM in DEXTROSE/WATER 1 100ML.BAG IVPB SCH (16:58)
[2024-05-29 17:34] LABS: Glucose,Whole Blood 150 mg/dL (70-110)
[2024-05-29 20:07] LABS: Glucose,Whole Blood 159 mg/dL (70-110)
--- NOTE | 2024-05-29 21:31 | P.PN ---
Subjective Progress Note Date: 05/29/24 Principal diagnosis: Reason for follow-up is leukocytosis Patient is a 69-year-old male with a past medical history significant for diabetes mellitus COPD hypertension hyperlipidemia osteoarthritis hepatitis C has been diagnosed with liver cancer approximately 2 weeks ago before presentation to the hospital has been brought in with confusion weakness did have elevated white count prompted this consultation. On today's evaluation that is 05/29/2024, Patient is afebrile patient is currently on room air and denies having any shortness of breath, the patient denies any chest pain or cough, the patient denies any nausea vomiting did not have any abdominal pain and no diarrhea. Patient did have a creatinine 0.75 no CBC was done today culture had been negative so far Objective - Vital Signs Vital signs: Vital Signs Temp 97.4 F L 05/29/24 12:07 Pulse 87 05/29/24 12:07 Resp 18 05/29/24 12:07 BP 99/65 05/29/24 12:07 Pulse Ox 92 L 05/29/24 12:07 FiO2 Intake & Output 05/28/24 05/29/24 05/29/24 18:59 06:59 18:59 Intake Total 300 Output Total 900 600 Balance -900 -300 Intake: Oral 300 Output: Urine 900 600 Other: Voiding Method Incontinent Incontinent Incontinent External Catheter External Catheter External Catheter # Bowel Movements 1 1 - Labs CBC & Chem 7: 05/28/24 04:38 05/29/24 08:44 Labs: Abnormal Lab Results - Last 24 Hours (Table) 05/28/24 05/28/24 05/29/24 Range/Units 17:10 20:10 07:53 Sodium (137-145) mmol/L Chloride (98-107) mmol/L BUN (9-20) mg/dL Glucose (74-99) mg/dL POC Glucose (mg/dL) 179 H 145 H 179 H (70-110) mg/dL Calcium (8.4-10.2) mg/dL Magnesium (1.6-2.3) mg/dL 05/29/24 05/29/24 Range/Units 08:44 12:32 Sodium 132 L (137-145) mmol/L Chloride 95 L (98-107) mmol/L BUN 34 H (9-20) mg/dL Glucose 165 H (74-99) mg/dL POC Glucose (mg/dL) 111 H (70-110) mg/dL Calcium 7.3 L (8.4-10.2) mg/dL Magnesium 1.5 L (1.6-2.3) mg/dL Microbiology - Last 24 Hours (Table) 05/24/24 02:45 Blood Culture - Final Blood 05/24/24 02:30 Blood Culture - Final Blood Assessment and Plan (1) Leukocytosis Current Visit: Yes Status: Acute Code(s): D72.829 - ELEVATED WHITE BLOOD CELL COUNT, UNSPECIFIED SNOMED Code(s): 059121237 Plan: 1patient presented to hospital with generalized weakness and decreased appetite and the patient also noted to have significant urine white count 21,000 and this patient has been recently diagnosed with a liver cancer patient has been tender right upper quadrant area more likely related to the hepatobiliary disease. 2patient did have CT abdominal pelvis with oral contrast only because of his kidney function did show Innumerable hepatic masses, prominent gastric hepatic ligament lymph nodes, patient did have a CT of the chest with a small nodule bone scan was negative for any metastatic disease and MRI brain did not show any acute abnormality 3patient scheduled for liver biopsy today results will be followed for now covered with empiric Rocephin repeat CBC in the a.m. lab at the bedside multiple questions answered Dictation was produced using [employer] dictation software. please excuse any grammatical, word or spelling errors. Time with Patient: Less than 30
[2024-05-30 07:39] LABS: Glucose,Whole Blood 122 mg/dL (70-110)
--- NOTE | 2024-05-30 11:12 | P.PN ---
Subjective Patient is seen in follow-up for acute kidney injury. Renal function back to baseline. Currently receiving a breathing treatment. Status post liver biopsy yesterday. Vital signs are stable. General: No acute distress. HEENT: Head exam is unremarkable. LUNGS: No audible rhonchi or wheezes. HEART: Rate and Rhythm are regular. ABDOMEN: Nontender. EXTREMITITES: No edema. Objective - Vital Signs Vital signs: Vital Signs Temp 98.0 F 05/30/24 08:02 Pulse 88 05/30/24 09:05 Resp 24 05/30/24 08:02 BP 120/71 05/30/24 08:02 Pulse Ox 94 L 05/30/24 08:02 FiO2 Intake & Output 05/29/24 05/30/24 05/30/24 18:59 06:59 18:59 Intake Total 600 1200 Output Total 600 200 Balance 0 1000 Intake: Intake, IV Titration 600 Amount Magnesium Sulfate-D5w Pmx 200 1 gm In Dextrose/Water 1 100ml.bag @ 100 mls/hr IVPB Q1H [facility] Rx#: [id number] Sodium Chloride 0.9% 1, 400 000 ml @ 50 mls/hr IV . Q20H [facility] Rx#:[id number] Oral 1200 Output: Urine 600 200 Other: Voiding Method Incontinent Diaper External Catheter Incontinent External Catheter # Bowel Movements 1 - Labs CBC & Chem 7: 05/28/24 04:38 05/29/24 08:44 Labs: Abnormal Lab Results - Last 24 Hours (Table) 05/29/24 05/29/24 05/29/24 Range/Units 12:32 17:32 20:05 POC Glucose (mg/dL) 111 H 150 H 159 H (70-110) mg/dL 05/30/24 Range/Units 07:21 POC Glucose (mg/dL) 122 H (70-110) mg/dL Microbiology - Last 24 Hours (Table) 05/24/24 02:45 Blood Culture - Final Blood 05/24/24 02:30 Blood Culture - Final Blood Assessment and Plan Plan: Assessment: 1. Acute kidney injury secondary to ATN secondary to hypovolemia. Resolved. UA benign. No hydronephrosis noted on imaging. 2. Hepatic masses with concern for malignancy. Status post biopsy. 3. Metabolic acidosis secondary to acute kidney injury improved with bicarb drip. 4. Hyperkalemia secondary to acute kidney injury and use of LOIDA inhibitor's. Resolved. 5. Mild hyponatremia possibly SIADH and poor solute intake. 6. Hypomagnesemia from poor intake. Replaced. Plan: Maintain normal saline for now. If sodium level worsens, will Hep-Lock. Encouraged oral intake. Maintain fluid restriction.
[2024-05-30 11:34] LABS: BUN/Creat Ratio 41.67 Ratio (12.00-20.00); Blood Urea Nitrogen 37.5 mg/dL (9.0-27.0); Calcium 7.7 mg/dL (8.7-10.3); Carbon Dioxide 25.7 mmol/L (21.6-31.8); Chloride 94 mmol/L (96-109); Glucose 126 mg/dL (70-110); Magnesium 2.1 mg/dL (1.5-2.4); Potassium 4.7 mmol/L (3.5-5.5); Sodium 134 mmol/L (135-145)
[2024-05-30 12:34] LABS: Glucose,Whole Blood 116 mg/dL (70-110)
[2024-05-30] MEDS: ZINC OXIDE PASTE (Z-GUARD) 1 APPLIC TOPICAL PRN (13:36)
--- NOTE | 2024-05-30 14:48 | P.PN ---
Subjective Progress Note Date: 05/30/24 Principal diagnosis: liver lesions In f/u today pt confirms he had liver biopsy. He states he is very tired and wants to sleep, he can barely keep his eyes open during our discussion. He denies any pain. Objective - Vital Signs Vital signs: Vital Signs Temp 98.2 F 05/30/24 13:40 Pulse 87 05/30/24 13:40 Resp 16 05/30/24 13:40 BP 101/52 05/30/24 13:40 Pulse Ox 95 05/30/24 13:40 FiO2 Intake & Output 05/29/24 05/30/24 05/30/24 18:59 06:59 18:59 Intake Total 600 1200 480 Output Total 600 200 Balance 0 1000 480 Intake: Intake, IV Titration 600 Amount Magnesium Sulfate-D5w Pmx 200 1 gm In Dextrose/Water 1 100ml.bag @ 100 mls/hr IVPB Q1H [facility] Rx#: [id number] Sodium Chloride 0.9% 1, 400 000 ml @ 50 mls/hr IV . Q20H [facility] Rx#:[id number] Oral 1200 480 Output: Urine 600 200 Other: Voiding Method Incontinent Diaper External Catheter Incontinent External Catheter # Bowel Movements 1 1 - Constitutional General appearance: Present: average body habitus, cooperative, mild distress - EENT Eyes: Present: anicteric sclerae ENT: Present: hearing grossly normal - Respiratory Respiratory: bilateral: CTA, diminished - Cardiovascular Rhythm: regular Heart sounds: normal: S1, S2 - Peripheral edema leg Peripheral Edema: bilateral: Trace - Gastrointestinal General gastrointestinal: Present: soft - Musculoskeletal Musculoskeletal: Present: generalized weakness - Psychiatric Psychiatric: Present: A&O x's 3, intact judgment & insight - Labs CBC & Chem 7: 05/28/24 04:38 05/30/24 04:30 Labs: Abnormal Lab Results - Last 24 Hours (Table) 05/29/24 05/29/24 05/30/24 Range/Units 17:32 20:05 04:30 Sodium 134 L (135-145) mmol/L Chloride 94 L (96-109) mmol/L Anion Gap 14.30 H (4.00-12.00) mmol/L BUN 37.5 H (9.0-27.0) mg/dL BUN/Creatinine Ratio 41.67 H (12.00-20.00) Ratio Glucose 126 H (70-110) mg/dL POC Glucose (mg/dL) 150 H 159 H (70-110) mg/dL Calcium 7.7 L (8.7-10.3) mg/dL 05/30/24 05/30/24 Range/Units 07:21 12:33 Sodium (135-145) mmol/L Chloride (96-109) mmol/L Anion Gap (4.00-12.00) mmol/L BUN (9.0-27.0) mg/dL BUN/Creatinine Ratio (12.00-20.00) Ratio Glucose (70-110) mg/dL POC Glucose (mg/dL) 122 H 116 H (70-110) mg/dL Calcium (8.7-10.3) mg/dL Microbiology - Last 24 Hours (Table) 05/24/24 02:45 Blood Culture - Final Blood 05/24/24 02:30 Blood Culture - Final Blood Assessment and Plan (1) Liver lesion Current Visit: Yes Status: Acute Priority: High Code(s): K76.9 - LIVER DISEASE, UNSPECIFIED SNOMED Code(s): 176845725 (2) Weakness Current Visit: Yes Status: Acute Priority: High Code(s): R53.1 - WEAKNESS SNOMED Code(s): 90802401 Plan: Weakness, sepsis -CT brain w/o was negative for acute intracranial processes. Chest x-ray was negative for acute cardiopulmonary processes. Viral panel, UA negative. blood cultures neg. -ID following Liver lesions -Patient was being followed for evaluation of liver lesions vs abscesses. Plan was for patient to complete course of antibiotics with subsequent f/u imaging to revaluate. He was scheduled for liver MRI, however PET CT was ordered by his PCP and is scheduled for 05/25/24, which unfortunately will be missed due to hospitalization -US liver showed enlarged heterogeneous liver scattered masses and small ascites. CT AP without contrast reported innumerable hepatic masses. Prominent gastric hepatic ligament lymph nodes. Pt is aware of concern for malignant process. He is s/p liver biopsy and removal of ascitic fluid-both specimens have been sent for pathology/ cytology -Brain MRI showed no evidence of intracranial mass, acute/subacute infarct or abnormal enhancement. Bone scan was negative for evidence of metastases. CT chest showing nonspecific 0.4 cm nodule within the left upper lung field, and COPD -Pending pathology of liver biopsy -F/U with Medical Oncologist for results and options for care
--- NOTE | 2024-05-30 15:44 | P.PN ---
Subjective Progress Note Date: 05/30/24 Principal diagnosis: Reason for follow-up is leukocytosis Patient is a 69-year-old male with a past medical history significant for diabetes mellitus COPD hypertension hyperlipidemia osteoarthritis hepatitis C has been diagnosed with liver cancer approximately 2 weeks ago before presentation to the hospital has been brought in with confusion weakness did have elevated white count prompted this consultation. On today's evaluation that is 05/30/2024, patient has been afebrile, patient is breathing comfortably and is currently on 2 L current oxygen, patient denies h aving any significant cough no chest pain, patient denies nausea vomiting some abdominal discomfort no diarrhea has been reported. Patient did have a creatinine of 0.9 no CBC has been done today culture have been negative Objective - Vital Signs Vital signs: Vital Signs Temp 98.2 F 05/30/24 13:40 Pulse 87 05/30/24 13:40 Resp 16 05/30/24 13:40 BP 101/52 05/30/24 13:40 Pulse Ox 95 05/30/24 13:40 FiO2 Intake & Output 05/29/24 05/30/24 05/30/24 18:59 06:59 18:59 Intake Total 600 1200 480 Output Total 600 200 Balance 0 1000 480 Intake: Intake, IV Titration 600 Amount Magnesium Sulfate-D5w Pmx 200 1 gm In Dextrose/Water 1 100ml.bag @ 100 mls/hr IVPB Q1H [facility] Rx#: [id number] Sodium Chloride 0.9% 1, 400 000 ml @ 50 mls/hr IV . Q20H [facility] Rx#:[id number] Oral 1200 480 Output: Urine 600 200 Other: Voiding Method Incontinent Diaper External Catheter Incontinent External Catheter # Bowel Movements 1 1 - Exam GENERAL DESCRIPTION: An elderly male lying in bed in no distress RESPIRATORY SYSTEM: Unlabored breathing , decreased breath sounds at bases HEART: S1 S2 regular rate and rhythm , ABDOMEN: Soft , right upper quadrant tenderness EXTREMITIES: No edema feet - Labs CBC & Chem 7: 05/28/24 04:38 05/30/24 04:30 Labs: Abnormal Lab Results - Last 24 Hours (Table) 05/29/24 05/29/24 05/30/24 Range/Units 17:32 20:05 04:30 Sodium 134 L (135-145) mmol/L Chloride 94 L (96-109) mmol/L Anion Gap 14.30 H (4.00-12.00) mmol/L BUN 37.5 H (9.0-27.0) mg/dL BUN/Creatinine Ratio 41.67 H (12.00-20.00) Ratio Glucose 126 H (70-110) mg/dL POC Glucose (mg/dL) 150 H 159 H (70-110) mg/dL Calcium 7.7 L (8.7-10.3) mg/dL 05/30/24 05/30/24 Range/Units 07:21 12:33 Sodium (135-145) mmol/L Chloride (96-109) mmol/L Anion Gap (4.00-12.00) mmol/L BUN (9.0-27.0) mg/dL BUN/Creatinine Ratio (12.00-20.00) Ratio Glucose (70-110) mg/dL POC Glucose (mg/dL) 122 H 116 H (70-110) mg/dL Calcium (8.7-10.3) mg/dL Microbiology - Last 24 Hours (Table) 05/24/24 02:45 Blood Culture - Final Blood 05/24/24 02:30 Blood Culture - Final Blood Assessment and Plan (1) Leukocytosis Current Visit: Yes Status: Acute Code(s): D72.829 - ELEVATED WHITE BLOOD CELL COUNT, UNSPECIFIED SNOMED Code(s): 260194488 Plan: 1patient presented to hospital with generalized weakness and decreased appetite and the patient also noted to have significant urine white count 21,000 and this patient has been recently diagnosed with a liver cancer patient has been tender right upper quadrant area more likely related to the hepatobiliary disease. 2patient did have CT abdominal pelvis with oral contrast only because of his kidney function did show Innumerable hepatic masses, prominent gastric hepatic ligament lymph nodes, patient did have a CT of the chest with a small nodule bone scan was negative for any metastatic disease and MRI brain did not show any acute abnormality 3patient is status post liver biopsy, blood culture have been negative we will monitor clinical course closely at the bedside multiple questions answered Dictation was produced using [employer] software. please excuse any grammatical, word or spelling errors. Time with Patient: Less than 30
[2024-05-30 17:10] LABS: Glucose,Whole Blood 136 mg/dL (70-110)
[2024-05-30 20:27] LABS: Glucose,Whole Blood 103 mg/dL (70-110)
[2024-05-31 07:10] LABS: Glucose,Whole Blood 103 mg/dL (70-110)
--- NOTE | 2024-05-31 08:38 | P.PN ---
Subjective Progress Note Date: 05/31/24 69-year-old gentleman with past medical history significant for recently reported diagnosis of liver cancer approximately 2 weeks ago, scheduled for PET scan tomorrow transported to the ER via EMS related to increased weakness, confusion and fall. Patient reports poor appetite, sore throat, loose congested cough, occasionally productive. Denies nausea, vomiting. Afebrile, WBC 21, lactic acid 2.9, 1.7, hemoglobin 11, platelets 185, INR 1.2. Sodium 134, potassium 5.6, bicarb 18, BUN 114, creatinine 1.64. Glucose 376, calcium 7.4, Phos 4.7 magnesium 2 alk phos 517, troponin negative x 1, ammonia less than 9, albumin 2.4. Viral studies negative. Brain CT reported no acute intracranial abnormality. Chest x-ray reported no acute cardiopulmonary process. EKG reported sinus tachycardia, 05/25/2024 continues on IV fluid hydration, bicarb 20.7, BUN 78.9, creatinine 1.2. Renal ultrasound reported enlarged heterogenous liver scattered masses compatible with diagnosis of liver cancer no obstruction/no hydronephrosis. CT of abdomen pelvis reported innumerable hepatic masses poorly visualized, compatible with history of malignancy, prominent gastric hepatic ligament lymph nodes concerning for malignancy and fractured left L2 pedicle screw. Complains of chronic back pain. Sensorium slowly improving. Continues on antibiotics, cough and abdominal pain has lessened. Afebrile, WBC decreased to 15.68. no bowel movement, passing flatus. Hemoglobin 9.6, platelets 147. 05/26/2024 maintained on empiric IV antibiotics, IV fluid hydration. Evaluated by oncology, brain MRI, bone scan, chest CT ordered with IR consulted for liver biopsy.. Patient complains of feeling" loopy". Denies chest pain, palpitations or shortness of breath. 05/27. Patient seen and examined. Blood work done this morning showed WBC 20.45, hemoglobin 8.1, platelet count 130, sodium 130s, potassium 5.3, patient family at the bedside. Patient is lethargic. Able to maintain conversation. CT of the abdomen showed multiple hepatic masses consistent with malignancy. Complaining of constipation 05/28. Patient seen and examined. Blood work done showed WBC 17.48, hemoglobin 9.5, sodium 134, potassium 4.6, BUN 40, creatinine 0.9 ammonia was 9. Patient had a bowel movement this morning. Patient is more alert compared to yesterday 05/29. Pt seen and evaluated at bedside. He continues to complain of significant abdominal pain throughout. He has liver biopsy scheduled today. Labs reviewed today with sodium 132, BUN 34, Cr 0.75. 05/30. Pt seen and evaluated at bedside. He is lethargic this morning states he just wants to sleep. Abdominal pain is improved. He had biopsy and removal of ascitic fluid. Objective - Vital Signs Vital signs: Vital Signs Temp 97.7 F 05/31/24 08:00 Pulse 102 H 05/31/24 08:00 Resp 18 05/31/24 08:00 BP 120/79 05/31/24 08:00 Pulse Ox 88 L 05/31/24 08:00 FiO2 Intake & Output 05/30/24 05/31/24 05/31/24 18:59 06:59 18:59 Intake Total 956 438 Output Total 500 400 Balance 456 38 Weight 59.5 kg Intake: Intake, IV Titration 320 Amount Sodium Chloride 0.9% 1, 320 000 ml @ 50 mls/hr IV . Q20H [facility] Rx#:[id number] Oral [id number] Output: Urine 500 400 Other: Voiding Method Diaper Diaper Incontinent Incontinent External Catheter External Catheter # Bowel Movements 1 1 - Exam Gen: obese male in NAD CV: RRR, no murmur Lungs: CTAB Abd: soft, tender to palpation RUQ, cathy LQ, BS+ Neuro: alert, lethargic - Labs CBC & Chem 7: 05/28/24 04:38 05/30/24 04:30 Labs: Abnormal Lab Results - Last 24 Hours (Table) 05/30/24 05/30/24 05/30/24 Range/Units 04:30 12:33 17:09 Sodium 134 L (135-145) mmol/L Chloride 94 L (96-109) mmol/L Anion Gap 14.30 H (4.00-12.00) mmol/L BUN 37.5 H (9.0-27.0) mg/dL BUN/Creatinine Ratio 41.67 H (12.00-20.00) Ratio Glucose 126 H (70-110) mg/dL POC Glucose (mg/dL) 116 H 136 H (70-110) mg/dL Calcium 7.7 L (8.7-10.3) mg/dL Assessment and Plan Plan: Continue with current regimen, IV abx, closely monitor renal function and trend WBC. Liver biposy per IR and Oncology following
[2024-05-31 08:47] LABS: Blood Urea Nitrogen 42.3 mg/dL (9.0-27.0); Calcium 7.9 mg/dL (8.7-10.3); Carbon Dioxide 21.6 mmol/L (21.6-31.8); Chloride 94 mmol/L (96-109); Glucose 93 mg/dL (70-110); Magnesium 2.3 mg/dL (1.5-2.4); Sodium 133 mmol/L (135-145)
[2024-05-31 12:12] LABS: Glucose,Whole Blood 169 mg/dL (70-110)
--- NOTE | 2024-05-31 15:41 | P.PN ---
Subjective Progress Note Date: 05/31/24 History of Present Illness H&P Date: 05/24/24 Chief Complaint: Increased weakness, fall, confusion Is a 69-year-old gentleman with past medical history significant for recently reported diagnosis of liver cancer approximately 2 weeks ago, scheduled for PET scan tomorrow transported to the ER via EMS related to increased weakness, confusion and fall. Patient reports poor appetite, sore throat, loose congested cough, occasionally productive. Denies nausea, vomiting. Afebrile, WBC 21, lactic acid 2.9, 1.7, hemoglobin 11, platelets 185, INR 1.2. Sodium 134, potassium 5.6, bicarb 18, BUN 114, creatinine 1.64. Glucose 376, calcium 7.4, Phos 4.7 magnesium 2 alk phos 517, troponin negative x 1, ammonia less than 9, albumin 2.4. Viral studies negative. Brain CT reported no acute intracranial abnormality. Chest x-ray reported no acute cardiopulmonary process. EKG reported sinus tachycardia, 05/25/2024 continues on IV fluid hydration, bicarb 20.7, BUN 78.9, creatinine 1.2. Renal ultrasound reported enlarged heterogenous liver scattered masses compatible with diagnosis of liver cancer no obstruction/no hydronephrosis. CT of abdomen pelvis reported innumerable hepatic masses poorly visualized, compatible with history of malignancy, prominent gastric hepatic ligament lymph nodes concerning for malignancy and fractured left L2 pedicle screw. Complains of chronic back pain. Sensorium slowly improving. Continues on antibiotics, cough and abdominal pain has lessened. Afebrile, WBC decreased to 15.68. no bowel movement, passing flatus. Hemoglobin 9.6, platelets 147. " 05/26/2024 maintained on empiric IV antibiotics, IV fluid hydration. Evaluated by oncology, brain MRI, bone scan, chest CT ordered with IR consulted for liver biopsy.. Patient complains of feeling" loopy". Denies chest pain, palpitations or shortness of breath. 05/29. Pt seen and evaluated at bedside. He continues to complain of significant abdominal pain throughout. He has liver biopsy scheduled today. Labs reviewed today with sodium 132, BUN 34, Cr 0.75. 05/30. Pt seen and evaluated at bedside. He is lethargic this morning states he just wants to sleep. Abdominal pain is improved. He had biopsy and removal of as citic fluid. 05/31/2024 status post liver biopsy, pathology pending. Brain MRI reported no evidence of intracranial mass, acute/subacute infarct or abnormal enhancement.Bone scan reported no diagnostic evidence of metastasis. Reports abdominal pain, improved. Objective - Vital Signs Vital signs: Vital Signs Temp 97.7 F 05/31/24 08:00 Pulse 102 H 05/31/24 08:00 Resp 18 05/31/24 08:00 BP 120/79 05/31/24 08:00 Pulse Ox 92 L 05/31/24 10:07 FiO2 Intake & Output 05/30/24 05/31/24 05/31/24 18:59 06:59 18:59 Intake Total 956 438 Output Total 500 400 Balance 456 38 Weight 59.5 kg Intake: Intake, IV Titration 320 Amount Sodium Chloride 0.9% 1, 320 000 ml @ 50 mls/hr IV . Q20H [facility] Rx#:[id number] Oral [id number] Output: Urine 500 400 Other: Voiding Method Diaper Diaper Incontinent Incontinent External Catheter External Catheter # Bowel Movements 1 1 - Exam PHYSICAL EXAM: Gen: obese male in NAD CV: RRR, no murmur Lungs: CTAB Abd: soft, tender to palpation RUQ, cathy LQ, BS+ Neuro: alert, lethargic - Labs CBC & Chem 7: 05/28/24 04:38 05/31/24 05:19 Labs: Abnormal Lab Results - Last 24 Hours (Table) 05/30/24 05/31/24 05/31/24 Range/Units 17:09 05:19 12:11 Sodium 133 L (135-145) mmol/L Chloride 94 L (96-109) mmol/L Anion Gap 17.40 H (4.00-12.00) mmol/L BUN 42.3 H (9.0-27.0) mg/dL BUN/Creatinine Ratio 47.00 H (12.00-20.00) Ratio POC Glucose (mg/dL) 136 H 169 H (70-110) mg/dL Calcium 7.9 L (8.7-10.3) mg/dL Assessment and Plan Assessment: Sepsis, ruling out , probable SIRS. Leukocytosis improving Lactic acidosis, resolved with IV fluid hydration Acute hypoxic respiratory failure Dehydration Acute on chronic renal failure, stage III, ATN, home medications Zestoreti c/lisinopril on hold. Metabolic acidosis secondary to the above Generalized weakness status post fall Acute metabolic encephalopathy secondary to the above Recent diagnosis of liver cancer 3 weeks ago, scheduled for PET scan 1017. Status post liver biopsy. History of alcohol abuse History of hepatitis C COPD Sleep apnea, wears CPAP Diabetes mellitus Gastroesophageal reflux disease Hypertension Hyperlipidemia BPH Bilateral corneal transplant 2020 OA, multiple joint surgeries, fusion L1- L5 Ongoing nicotine dependence Plan: Continue on current medication resume ,monitoring and symptomatic treatment. Liver biopsy pathology pending. Oncology following IV antibiotics as per ID. Patient has been declining to participate with PT/OT, therefore not a candidate for subacute rehab., Spouse is looking into assisted living. Discharge planning in progress. The impression and plan of care has been dictated as directed. .: I performed a history and examination of this patient, discussed the same with the dictator. I agree with the dictator's note ,documented as a scribe. Any additional findings or plans will be noted. The impression and plan of care has been dictated as directed. .: I performed a history and examination of this patient, discussed the same with the dictator. I agree with the dictator's note ,documented as a scribe. Any additional findings or plans will be noted.
--- NOTE | 2024-05-31 15:45 | P.PN ---
Subjective Progress Note Date: 05/31/24 Principal diagnosis: liver lesions In f/u today pt at bedside, pt behavior is slightly improved form yesterday-eyes not rolling back in his head as much, he still seems to drift off to sleep when talking to him at times. Speech is clearer, his conversation is slightly confused at times. Objective - Vital Signs Vital signs: Vital Signs Temp 98.1 F 05/31/24 13:00 Pulse 88 05/31/24 13:00 Resp 14 05/31/24 13:00 BP 108/75 05/31/24 13:00 Pulse Ox 94 L 05/31/24 13:00 FiO2 Intake & Output 05/30/24 05/31/24 05/31/24 18:59 06:59 18:59 Intake Total 956 438 Output Total 500 400 Balance 456 38 Weight 59.5 kg Intake: Intake, IV Titration 320 Amount Sodium Chloride 0.9% 1, 320 000 ml @ 50 mls/hr IV . Q20H [facility] Rx#:[id number] Oral [id number] [id number] Output: Urine 500 400 Other: Voiding Method Diaper Diaper Incontinent Incontinent External Catheter External Catheter # Bowel Movements 1 1 - Constitutional General appearance: Present: average body habitus, cooperative, mild distress - EENT Eyes: Present: anicteric sclerae, EOMI ENT: Present: hearing grossly normal - Respiratory Details: resp unlabored - Cardiovascular Details: skin warm and well perfused - Peripheral edema leg Peripheral Edema: bilateral: None - Musculoskeletal Musculoskeletal: Present: generalized weakness - Psychiatric Psychiatric: Present: A&O x's 3 - Labs CBC & Chem 7: 05/28/24 04:38 05/31/24 05:19 Labs: Abnormal Lab Results - Last 24 Hours (Table) 05/30/24 05/31/24 05/31/24 Range/Units 17:09 05:19 12:11 Sodium 133 L (135-145) mmol/L Chloride 94 L (96-109) mmol/L Anion Gap 17.40 H (4.00-12.00) mmol/L BUN 42.3 H (9.0-27.0) mg/dL BUN/Creatinine Ratio 47.00 H (12.00-20.00) Ratio POC Glucose (mg/dL) 136 H 169 H (70-110) mg/dL Calcium 7.9 L (8.7-10.3) mg/dL Assessment and Plan (1) Liver lesion Current Visit: Yes Status: Acute Priority: High Code(s): K76.9 - LIVER DISEASE, UNSPECIFIED SNOMED Code(s): 577793002 (2) Weakness Current Visit: Yes Status: Acute Priority: High Code(s): R53.1 - WEAKNESS SNOMED Code(s): 21062800 Plan: Weakness, sepsis -CT brain w/o was negative for acute intracranial processes. Chest x-ray was negative for acute cardiopulmonary processes. Viral panel, UA negative. Blood cultures neg. -ID following -Pt has Hx HepC from [facility]. Acute hep panel ordered Liver lesions -Patient was being followed for evaluation of liver lesions vs abscesses (seen at [facility] in Apr). Plan initially was for patient to complete course of antibiotics with subsequent f/u MRI of the liver to revaluate. He was scheduled for liver MRI however PET CT was ordered by his PCP so, MRI was held, PET was scheduled for 05/25/24, which pt was inpt so, it was not done. -Case was discussed with ID. Liver imaging in Mar did not report any suspicious findings. Very rapid change in imaging. Pt is being treated with abx. Pending biopsy and cytology results -During this admit US liver showed enlarged heterogeneous liver scattered masses and small ascites. CT AP without contrast reported innumerable hepatic masses. Prominent gastric hepatic ligament lymph nodes. Liver biopsy performed and ascitic fluid was removed. Pending path/cytology. -Pt and are aware of concern for malignant process. -Brain MRI showed no evidence of intracranial mass, acute/subacute infarct or abnormal enhancement. Bone scan was negative for evidence of metastases. CT chest showing nonspecific 0.4 cm nodule within the left upper lung field, and COPD -F/U with Medical Oncologist for results and options for care
[2024-05-31 17:10] LABS: Glucose,Whole Blood 108 mg/dL (70-110)
[2024-05-31 20:15] LABS: Glucose,Whole Blood 115 mg/dL (70-110)
[2024-06-01 00:50] LABS: Glucose,Whole Blood 132 mg/dL (70-110)
[2024-06-01 07:24] LABS: Hepatitis A Antibody IgM Nonreactive (Nonreactive); Hepatitis B Core IgM Nonreactive (Nonreactive); Hepatitis B Surface Antigen Nonreactive (Nonreactive); Hepatitis C IgG Antibody Reactive (Nonreactive)
[2024-06-01 07:55] LABS: Glucose,Whole Blood 160 mg/dL (70-110)
--- NOTE | 2024-06-01 09:25 | P.PN ---
Subjective Progress Note Date: 05/31/24 Principal diagnosis: Reason for follow-up is leukocytosis Patient is a 69-year-old male with a past medical history significant for diabetes mellitus COPD hypertension hyperlipidemia osteoarthritis hepatitis C has been diagnosed with liver cancer approximately 2 weeks ago before presentation to the hospital has been brought in with confusion weakness did have elevated white count prompted this consultation. On today's evaluation that is 05/31/2024, Patient is afebrile this morning patient denies having any chest pain shortness of breath or cough, the patient is currently on room air, patient has been complaining some right upper quad abdominal pain nausea but no vomiting or diarrhea. No CBC was done today creatinine 0.9 blood culture have been negative biopsy report is pending Objective - Vital Signs Vital signs: Vital Signs Temp 97.7 F 05/31/24 08:00 Pulse 102 H 05/31/24 08:00 Resp 18 05/31/24 08:00 BP 120/79 05/31/24 08:00 Pulse Ox 92 L 05/31/24 10:07 FiO2 Intake & Output 05/30/24 05/31/24 05/31/24 18:59 06:59 18:59 Intake Total 956 438 Output Total 500 400 Balance 456 38 Weight 59.5 kg Intake: Intake, IV Titration 320 Amount Sodium Chloride 0.9% 1, 320 000 ml @ 50 mls/hr IV . Q20H [facility] Rx#:[id number] Oral [id number] [id number] Output: Urine 500 400 Other: Voiding Method Diaper Diaper Incontinent Incontinent External Catheter External Catheter # Bowel Movements 1 1 - Exam GENERAL DESCRIPTION: An elderly male lying in bed in no distress RESPIRATORY SYSTEM: Unlabored breathing , decreased breath sounds at bases HEART: S1 S2 regular rate and rhythm , ABDOMEN: Soft , right upper quadrant tenderness EXTREMITIES: No edema feet - Labs CBC & Chem 7: 05/28/24 04:38 05/31/24 05:19 Labs: Abnormal Lab Results - Last 24 Hours (Table) 05/30/24 05/31/24 05/31/24 Range/Units 17:09 05:19 12:11 Sodium 133 L (135-145) mmol/L Chloride 94 L (96-109) mmol/L Anion Gap 17.40 H (4.00-12.00) mmol/L BUN 42.3 H (9.0-27.0) mg/dL BUN/Creatinine Ratio 47.00 H (12.00-20.00) Ratio POC Glucose (mg/dL) 136 H 169 H (70-110) mg/dL Calcium 7.9 L (8.7-10.3) mg/dL Assessment and Plan (1) Leukocytosis Current Visit: Yes Status: Acute Code(s): D72.829 - ELEVATED WHITE BLOOD CELL COUNT, UNSPECIFIED SNOMED Code(s): 691750325 Plan: 1patient presented to hospital with generalized weakness and decreased appetite and the patient also noted to have significant urine white count 21,000 and this patient has been recently diagnosed with a liver cancer patient has been tender right upper quadrant area more likely related to the hepatobiliary disease. 2patient did have CT abdominal pelvis with oral contrast only because of his kidney function did show Innumerable hepatic masses, prominent gastric hepatic ligament lymph nodes, patient did have a CT of the chest with a small nodule bone scan was negative for any metastatic disease and MRI brain did not show any acute abnormality 3patient is status post liver biopsy reports are currently pending blood cu ltures were done patient did have a normal CT abdominal pelvis in March 2024 at this has been discussed in detail with the LOOM MECHANIC for oncology team as you may need to rule out other etiology besides malignancy follow-up continue with Jamie Dictation was produced using [employer] dictation software. please excuse any grammatical, word or spelling errors.
[2024-06-01 12:23] LABS: Glucose,Whole Blood 117 mg/dL (70-110)
--- NOTE | 2024-06-01 15:51 | P.PN ---
Subjective Progress Note Date: 06/01/24 History of Present Illness H&P Date: 05/24/24 Chief Complaint: Increased weakness, fall, confusion Is a 69-year-old gentleman with past medical history significant for recently reported diagnosis of liver cancer approximately 2 weeks ago, scheduled for PET scan tomorrow transported to the ER via EMS related to increased weakness, confusion and fall. Patient reports poor appetite, sore throat, loose congested cough, occasionally productive. Denies nausea, vomiting. Afebrile, WBC 21, lactic acid 2.9, 1.7, hemoglobin 11, platelets 185, INR 1.2. Sodium 134, potassium 5.6, bicarb 18, BUN 114, creatinine 1.64. Glucose 376, calcium 7.4, Phos 4.7 magnesium 2 alk phos 517, troponin negative x 1, ammonia less than 9, albumin 2.4. Viral studies negative. Brain CT reported no acute intracranial abnormality. Chest x-ray reported no acute cardiopulmonary process. EKG reported sinus tachycardia, 05/25/2024 continues on IV fluid hydration, bicarb 20.7, BUN 78.9, creatinine 1.2. Renal ultrasound reported enlarged heterogenous liver scattered masses compatible with diagnosis of liver cancer no obstruction/no hydronephrosis. CT of abdomen pelvis reported innumerable hepatic masses poorly visualized, compatible with history of malignancy, prominent gastric hepatic ligament lymph nodes concerning for malignancy and fractured left L2 pedicle screw. Complains of chronic back pain. Sensorium slowly improving. Continues on antibiotics, cough and abdominal pain has lessened. Afebrile, WBC decreased to 15.68. no bowel movement, passing flatus. Hemoglobin 9.6, platelets 147. " 05/26/2024 maintained on empiric IV antibiotics, IV fluid hydration. Evaluated by oncology, brain MRI, bone scan, chest CT ordered with IR consulted for liver biopsy.. Patient complains of feeling" loopy". Denies chest pain, palpitations or shortness of breath. 05/29. Pt seen and evaluated at bedside. He continues to complain of significant abdominal pain throughout. He has liver biopsy scheduled today. Labs reviewed today with sodium 132, BUN 34, Cr 0.75. 05/30. Pt seen and evaluated at bedside. He is lethargic this morning states he just wants to sleep. Abdominal pain is improved. He had biopsy and removal of as citic fluid. 05/31/2024 status post liver biopsy, pathology pending. Brain MRI reported no evidence of intracranial mass, acute/subacute infarct or abnormal enhancement.Bone scan reported no diagnostic evidence of metastasis. Reports abdominal pain, improved. 06/01/2024 patient requesting to go home. at bedside. Discussed we would have physical therapy return to evaluate this morning. less abdominal pain. Denies nausea or vomiting. Denies chest pain, palpitations or shortness of breath. Afebrile. Blood sugars controlled. Pathology/cytology pending. Objective - Vital Signs Vital signs: Vital Signs Temp 97.7 F 06/01/24 07:45 Pulse 82 06/01/24 13:07 Resp 17 06/01/24 09:00 BP 132/77 06/01/24 07:45 Pulse Ox 93 L 06/01/24 07:45 FiO2 Intake & Output 05/31/24 06/01/24 06/01/24 18:59 06:59 18:59 Intake Total 180 358 120 Output Total 300 700 Balance -120 -342 120 Intake: Oral 180 358 120 Output: Urine 300 700 Other: Voiding Method Diaper Diaper Diaper Incontinent Incontinent Incontinent External Catheter External Catheter External Catheter # Bowel Movements 1 3 1 - Exam PHYSICAL EXAM: Gen: obese male in NAD CV: RRR, no murmur Lungs: CTAB Abd: soft, less tender to palpation RUQ, cathy LQ, BS+ Neuro: alert, lethargic - Labs CBC & Chem 7: 05/28/24 04:38 05/31/24 05:19 Labs: Abnormal Lab Results - Last 24 Hours (Table) 05/31/24 05/31/24 06/01/24 Range/Units 05:19 20:13 00:48 POC Glucose (mg/dL) 115 H 132 H (70-110) mg/dL Hep C IgG Ab Reactive A (Nonreactive) 06/01/24 06/01/24 Range/Units 07:53 12:22 POC Glucose (mg/dL) 160 H 117 H (70-110) mg/dL Hep C IgG Ab (Nonreactive) Assessment and Plan Assessment: Sepsis, ruling out , probable SIRS. Leukocytosis improving Lactic acidosis, resolved with IV fluid hydration Acute hypoxic respiratory failure Dehydration Acute on chronic renal failure, stage III, ATN, home medications Zestoretic/lisinopril on hold. Metabolic acidosis secondary to the above Generalized weakness status post fall Acute metabolic encephalopathy secondary to the above Recent diagnosis of liver cancer 3 weeks ago, scheduled for PET scan 1017. Status post liver biopsy. History of alcohol abuse History of hepatitis C COPD Sleep apnea, wears CPAP Diabetes mellitus Gastroesophageal reflux disease Hypertension Hyperlipidemia BPH Bilateral corneal transplant 2020 OA, multiple joint surgeries, fusion L1- L5 Ongoing nicotine dependence Plan: Continue on current medication resume ,monitoring and symptomatic treatment. Liver biopsy pathology/cytology pending. Oncology following IV antibiotics as per ID. Discussed with patient concerns regarding strength and safety and will have PT return this morning for reevaluation-Patient in agreement with. Patient once again declined to participate with PT/OT. Discharge planning in progress. The impression and plan of care has been dictated as directed. : I performed a history and examination of this patient, discussed the same with the dictator. I agree with the dictator's note ,documented as a scribe. Any additional findings or plans will be noted. The impression and plan of care has been dictated as directed. .: I performed a history and examination of this patient, discussed the same with the dictator. I agree with the dictator's note ,documented as a scribe. Any additional findings or plans will be noted.
[2024-06-01 17:37] LABS: Glucose,Whole Blood 152 mg/dL (70-110)
[2024-06-01] MEDS: HYDROcodone/APAP 5-325MG 1 EACH TAB PO PRN (18:09)
[2024-06-01] MEDS: ONDANSETRON 4 MG/2 ML VIAL IVP PRN (20:22)
[2024-06-01 20:28] LABS: Glucose,Whole Blood 129 mg/dL (70-110)
[2024-06-02 07:29] LABS: Glucose,Whole Blood 159 mg/dL (70-110)
--- NOTE | 2024-06-02 11:18 | P.PN ---
Subjective Progress Note Date: 06/02/24 History of Present Illness H&P Date: 05/24/24 Chief Complaint: Increased weakness, fall, confusion Is a 69-year-old gentleman with past medical history significant for recently reported diagnosis of liver cancer approximately 2 weeks ago, scheduled for PET scan tomorrow transported to the ER via EMS related to increased weakness, confusion and fall. Patient reports poor appetite, sore throat, loose congested cough, occasionally productive. Denies nausea, vomiting. Afebrile, WBC 21, lactic acid 2.9, 1.7, hemoglobin 11, platelets 185, INR 1.2. Sodium 134, potassium 5.6, bicarb 18, BUN 114, creatinine 1.64. Glucose 376, calcium 7.4, Phos 4.7 magnesium 2 alk phos 517, troponin negative x 1, ammonia less than 9, albumin 2.4. Viral studies negative. Brain CT reported no acute intracranial abnormality. Chest x-ray reported no acute cardiopulmonary process. EKG reported sinus tachycardia, 05/25/2024 continues on IV fluid hydration, bicarb 20.7, BUN 78.9, creatinine 1.2. Renal ultrasound reported enlarged heterogenous liver scattered masses compatible with diagnosis of liver cancer no obstruction/no hydronephrosis. CT of abdomen pelvis reported innumerable hepatic masses poorly visualized, compatible with history of malignancy, prominent gastric hepatic ligament lymph nodes concerning for malignancy and fractured left L2 pedicle screw. Complains of chronic back pain. Sensorium slowly improving. Continues on antibiotics, cough and abdominal pain has lessened. Afebrile, WBC decreased to 15.68. no bowel movement, passing flatus. Hemoglobin 9.6, platelets 147. " 05/26/2024 maintained on empiric IV antibiotics, IV fluid hydration. Evaluated by oncology, brain MRI, bone scan, chest CT ordered with IR consulted for liver biopsy.. Patient complains of feeling" loopy". Denies chest pain, palpitations or shortness of breath. 05/29. Pt seen and evaluated at bedside. He continues to complain of significant abdominal pain throughout. He has liver biopsy scheduled today. Labs reviewed today with sodium 132, BUN 34, Cr 0.75. 05/30. Pt seen and evaluated at bedside. He is lethargic this morning states he just wants to sleep. Abdominal pain is improved. He had biopsy and removal of as citic fluid. 05/31/2024 status post liver biopsy, pathology pending. Brain MRI reported no evidence of intracranial mass, acute/subacute infarct or abnormal enhancement.Bone scan reported no diagnostic evidence of metastasis. Reports abdominal pain, improved. 06/01/2024 patient requesting to go home. at bedside. Discussed we would have physical therapy return to evaluate this morning. less abdominal pain. Denies nausea or vomiting. Denies chest pain, palpitations or shortness of breath. Afebrile. Blood sugars controlled. Pathology/cytology pending. 06/02/2024 yesterday morning patient declined working with physical therapy. states patient i"s not a morning person. " Reinforced patient participating with PT for discharge planning. 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 Peritoneal fluid cytology reported scattered reactive mesothelial cells, macrophages and mixed inflammatory cells, no cytologically malignant cells identified. Abdominal pain improving, right upper quadrant pain present. denies chest pain, palpitations or shortness of breath, maintaining O2 sats in the low 90s on 2 L nasal cannula. Blood sugars controlled. Objective - Vital Signs Vital signs: Vital Signs Temp 98.1 F 06/02/24 07:25 Pulse 105 H 06/02/24 07:25 Resp 16 06/02/24 07:25 BP 137/80 06/02/24 07:25 Pulse Ox 92 L 06/02/24 07:25 FiO2 Intake & Output 06/01/24 06/02/24 06/02/24 18:59 06:59 18:59 Intake Total 120 240 712 Output Total 400 350 Balance -280 -110 712 Intake: Oral 120 240 712 Output: Urine 400 350 Other: Voiding Method Diaper Diaper Diaper Incontinent Incontinent Incontinent External Catheter External Catheter External Catheter # Bowel Movements 1 - Exam PHYSICAL EXAM: Gen: obese male, sitting up in bed, NAD CV: RRR, no murmur Lungs: CTAB Abd: soft, less tender to palpation RUQ, cathy LQ, BS+ Neuro: alert, lethargic - Labs CBC & Chem 7: 05/28/24 04:38 05/31/24 05:19 Labs: Abnormal Lab Results - Last 24 Hours (Table) 06/01/24 06/01/24 06/01/24 Range/Units 12:22 17:36 20:22 POC Glucose (mg/dL) 117 H 152 H 129 H (70-110) mg/dL 06/02/24 Range/Units 07:28 POC Glucose (mg/dL) 159 H (70-110) mg/dL Assessment and Plan Assessment: Sepsis, ruling out , probable SIRS. Leukocytosis improving Lactic acidosis, resolved with IV fluid hydration Acute hypoxic respiratory failure Dehydration Acute on chronic renal failure, stage III, ATN, home medications Zesto retic/lisinopril on hold. Metabolic acidosis secondary to the above Generalized weakness status post fall Acute metabolic encephalopathy secondary to the above Recent diagnosis of liver cancer 3 weeks ago, scheduled for PET scan 1017. Status post liver biopsy. 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 Peritoneal fluid cytology reported scattered reactive mesothelial cells, macrophages and mixed inflammatory cells, no cytologically malignant cells identified. History of alcohol abuse History of hepatitis C COPD Sleep apnea, wears CPAP Diabetes mellitus Gastroesophageal reflux disease Hypertension Hyperlipidemia BPH Bilateral corneal transplant 2020 OA, multiple joint surgeries, fusion L1- L5 Ongoing nicotine dependence Plan: Continue on current medication resume ,monitoring and symptomatic treatment. Pathology/cytology reports in -further review and recommendations pending as per oncology .participation with PT reinforced with both patient and at bedside. discharge planning in progress. The impression and plan of care has been dictated as directed. .: I performed a history and examination of this patient, discussed the same with the dictator. I agree with the dictator's note ,documented as a scribe. Any additional findings or plans will be noted. The impression and plan of care has been dictated as directed. Dr.: I performed a history and examination of this patient, discussed the same with the dictator. I agree with the dictator's note ,documented as a scribe. Any additional findings or plans will be noted.
[2024-06-02 12:08] LABS: Glucose,Whole Blood 192 mg/dL (70-110)
[2024-06-02 17:14] LABS: Glucose,Whole Blood 197 mg/dL (70-110)
--- NOTE | 2024-06-02 17:54 | P.PN ---
Subjective Progress Note Date: 06/02/24 No acute events. Pt lethargic at todays visit, but is responding to verbal stimuli, but easily falls asleep Objective - Vital Signs Vital signs: Vital Signs Temp 98.1 F 06/02/24 12:36 Pulse 95 06/02/24 12:36 Resp 16 06/02/24 12:36 BP 108/69 06/02/24 12:36 Pulse Ox 91 L 06/02/24 12:36 FiO2 Intake & Output 06/01/24 06/02/24 06/02/24 18:59 06:59 18:59 Intake Total 120 240 830 Output Total 400 350 Balance -280 -110 830 Weight 59.5 kg Intake: Oral 120 240 830 Output: Urine 400 350 Other: Voiding Method Diaper Diaper Diaper Incontinent Incontinent Incontinent External Catheter External Catheter External Catheter # Bowel Movements 1 - Constitutional General appearance: Present: no acute distress - EENT Eyes: Present: anicteric sclerae, EOMI ENT: Present: hearing grossly normal - Respiratory Details: breathing is even and unlabored - Cardiovascular Details: skin warm and dry - Integumentary Integumentary: Present: pale. Absent: cyanotic - Neurologic Neurologic Comment(s): lethargic - Musculoskeletal Musculoskeletal: Present: generalized weakness - Labs CBC & Chem 7: 05/28/24 04:38 05/31/24 05:19 Labs: Abnormal Lab Results - Last 24 Hours (Table) 06/01/24 06/01/24 06/02/24 Range/Units 17:36 20:22 07:28 POC Glucose (mg/dL) 152 H 129 H 159 H (70-110) mg/dL 06/02/24 Range/Units 12:06 POC Glucose (mg/dL) 192 H (70-110) mg/dL Assessment and Plan (1) Weakness Current Visit: Yes Status: Acute Priority: High Code(s): R53.1 - WEAKNESS SNOMED Code(s): 33432958 (2) Liver lesion Current Visit: Yes Status: Acute Priority: High Code(s): K76.9 - LIVER DISEASE, UNSPECIFIED SNOMED Code(s): 478839750 Plan: Weakness, sepsis -CT brain w/o was negative for acute intracranial processes. Chest x-ray was negative for acute cardiopulmonary processes. Viral panel, UA negative. Blood cultures neg. 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 Acute hep panel ordered, hep C IgG ab reactive Liver lesions -Patient was being followed for evaluation of liver lesions vs abscesses (seen at [facility] in Apr). Plan initially was for patient to complete course of antibiotics with subsequent f/u MRI of the liver to revaluate. He was scheduled for liver MRI however PET CT was ordered by his PCP so, MRI was held, PET was scheduled for 05/25/24, which pt was inpt so, it was not completed -Case was discussed with ID. Liver imaging in Mar did not report any suspicious findings. Very rapid change in imaging. Pt is being treated with abx. Pending biopsy and cytology results -During this admit US liver showed enlarged heterogeneous liver scattered masses and small ascites. CT AP without contrast reported innumerable hepatic masses. Prominent gastric hepatic ligament lymph nodes. -Brain MRI showed no evidence of intracranial mass, acute/subacute infarct or abnormal enhancement. Bone scan was negative for evidence of metastases. CT chest showing nonspecific 0.4 cm nodule within the left upper lung field, and COPD -Liver biopsy performed and ascitic fluid was removed. Cytology negative for malignancy. Liver biopsy showing high-grade malignant spindle cells/sarcomatoid neoplasm, final characterization pending AFP ordered -Discussed findings with patient and spouse at bedside today. All questions concerns were addressed. Will await finalized biopsy results and schedule clinic follow-up to further discuss goals of care and treatment options Doctor attests: I performed a history and physical examination of this patient, developed impression and plan of care. Discussed with dictator. I agree with dictators note, documented as a scribe.
--- NOTE | 2024-06-02 18:39 | XR ---
EXAMINATION TYPE: XR chest 1V portable DATE OF EXAM: 06/02/2024 Comparison: 05/24/2024 Clinical History: 69-year-old male SOB Findings: Median sternotomy wires and prosthetic aortic valve. Suture anchors in superior right glenoid. Heart normal size. Mild interstitial prominence. There is patchy left basilar opacity is noted. Possible tr brigette left pleural effusion. Impression: Some patchy left basilar atelectasis/consolidation and possible trace left pleural effusion. Correlat e to exclude mild CHF/pulmonary vascular congestion. [facility], , 06/02/2024 6:37 PM
[2024-06-02 20:20] LABS: Glucose,Whole Blood 174 mg/dL (70-110)
[2024-06-02] MEDS: FUROSEMIDE 10 MG/ML 2 ML VIAL IV ONE (20:24)
[2024-06-03 07:32] LABS: Glucose,Whole Blood 171 mg/dL (70-110)
[2024-06-03 09:30] LABS: HCT 34.5 % (39.6-50.0); HGB 10.3 g/dL (13.0-17.0); MCH 25.3 pg (27.0-32.0); MCHC 29.9 g/dL (32.0-37.0); MCV 84.8 FL (80.0-97.0); NRBC Per 100 WBC 0 X 10*3/uL (0.00-0.01); Platelet Count 128 X 10*3/uL (140-440); RBC 4.07 X 10*6/uL (4.40-5.60); RDW 20.3 % (11.5-14.5); WBC 19.35 X 10*3/uL (4.50-10.00)
[2024-06-03 09:31] LABS: Basophils # (A) 0.02 X 10*3/uL (0.00-0.10); Basophils % (A) 0.1 %; Eosinophils # (A) 0.03 X 10*3/uL (0.04-0.35); Eosinophils % (A) 0.2 %; Lymphocytes # (A) 1.11 X 10*3/uL (0.90-5.00); Lymphocytes % (A) 5.7 %; Monocytes # (A) 0.76 X 10*3/uL (0.20-1.00); Monocytes % (A) 3.9 %; Neutrophils # (A) 17.32 X 10*3/uL (1.80-7.70); Neutrophils % (A) 89.5 %
[2024-06-03] MEDS: FUROSEMIDE 10 MG/ML 4 ML VIAL IV SCH (09:35)
--- NOTE | 2024-06-03 10:08 | P.PN ---
Subjective Progress Note Date: 06/01/24 Principal diagnosis: Reason for follow-up is leukocytosis Patient is a 69-year-old male with a past medical history significant for diabetes mellitus COPD hypertension hyperlipidemia osteoarthritis hepatitis C has been diagnosed with liver cancer approximately 2 weeks ago before presentation to the hospital has been brought in with confusion weakness did have elevated white count prompted this consultation. On today's evaluation that is 06/01/2024,the patient denies any fever or any chills, patient is breathing comfortably on 2 L current oxygen the patient denies chest pain shortness of breath and no significant cough, patient still, some abdominal pain no vomiting or diarrhea has been reported. Patient did not have any lab draw today Objective - Vital Signs Vital signs: Vital Signs Temp 97.7 F 06/01/24 07:45 Pulse 88 06/01/24 07:45 Resp 17 06/01/24 07:45 BP 132/77 06/01/24 07:45 Pulse Ox 93 L 06/01/24 07:45 FiO2 Intake & Output 05/31/24 06/01/24 06/01/24 18:59 06:59 18:59 Intake Total 180 358 Output Total 300 700 Balance -120 -342 Intake: Oral 180 358 Output: Urine 300 700 Other: Voiding Method Diaper Diaper Incontinent Incontinent External Catheter External Catheter # Bowel Movements 1 3 - Exam GENERAL DESCRIPTION: An elderly male lying in bed in no distress RESPIRATORY SYSTEM: Unlabored breathing , decreased breath sounds at bases HEART: S1 S2 regular rate and rhythm , ABDOMEN: Soft , right upper quadrant tenderness EXTREMITIES: No edema feet - Labs CBC & Chem 7: 06/03/24 04:15 05/31/24 05:19 Labs: Abnormal Lab Results - Last 24 Hours (Table) 05/31/24 05/31/24 05/31/24 Range/Units 05:19 12:11 20:13 POC Glucose (mg/dL) 169 H 115 H (70-110) mg/dL Hep C IgG Ab Reactive A (Nonreactive) 06/01/24 06/01/24 Range/Units 00:48 07:53 POC Glucose (mg/dL) 132 H 160 H (70-110) mg/dL Hep C IgG Ab (Nonreactive) Assessment and Plan (1) Leukocytosis Current Visit: Yes Status: Acute Code(s): D72.829 - ELEVATED WHITE BLOOD CELL COUNT, UNSPECIFIED SNOMED Code(s): 013166252 Plan: 1patient presented to hospital with generalized weakness and decreased appetite and the patient also noted to have significant urine white count 21,000 and this patient has been recently diagnosed with a liver cancer patient has been tender right upper quadrant area more likely related to the hepatobiliary disease. 2patient did have CT abdominal pelvis with oral contrast only because of his kidney function did show Innumerable hepatic masses, prominent gastric hepatic ligament lymph nodes, patient did have a CT of the chest with a small nodule bone scan was negative for any metastatic disease and MRI brain did not show any acute abnormality 3patient is status post liver biopsy reports are currently pending however highly suspicious for malignancy infectious etiology less likely not excluded, completed course of Rocephin Dictation was produced using [employer] dictation software. please excuse any grammatical, word or spelling errors. Time with Patient: Less than 30
--- NOTE | 2024-06-03 10:09 | P.PN ---
Subjective Progress Note Date: 06/02/24 Principal diagnosis: Reason for follow-up is leukocytosis Patient is a 69-year-old male with a past medical history significant for diabetes mellitus COPD hypertension hyperlipidemia osteoarthritis hepatitis C has been diagnosed with liver cancer approximately 2 weeks ago before presentation to the hospital has been brought in with confusion weakness did have elevated white count prompted this consultation. On today's evaluation that is 06/02/2024,the patient remains to be afebrile, patient is on 2 L nasal cannula supplemental oxygen and denies any shortness of breath no chest pain or cough.Patient denies having any nausea or vomiting, some right-sided abdominal pain no diarrhea has been reported. No new labs biopsy came back positive for high-grade malignant neoplasm Objective - Vital Signs Vital signs: Vital Signs Temp 98.1 F 06/02/24 07:25 Pulse 88 06/02/24 11:22 Resp 16 06/02/24 07:25 BP 137/80 06/02/24 07:25 Pulse Ox 92 L 06/02/24 07:25 FiO2 Intake & Output 06/01/24 06/02/24 06/02/24 18:59 06:59 18:59 Intake Total 120 240 712 Output Total 400 350 Balance -280 -110 712 Intake: Oral 120 240 712 Output: Urine 400 350 Other: Voiding Method Diaper Diaper Diaper Incontinent Incontinent Incontinent External Catheter External Catheter External Catheter # Bowel Movements 1 - Exam GENERAL DESCRIPTION: An elderly male lying in bed in no distress RESPIRATORY SYSTEM: Unlabored breathing , decreased breath sounds at bases HEART: S1 S2 regular rate and rhythm , ABDOMEN: Soft , right upper quadrant tenderness EXTREMITIES: No edema feet - Labs CBC & Chem 7: 06/03/24 04:15 05/31/24 05:19 Labs: Abnormal Lab Results - Last 24 Hours (Table) 06/01/24 06/01/24 06/01/24 Range/Units 12:22 17:36 20:22 POC Glucose (mg/dL) 117 H 152 H 129 H (70-110) mg/dL 06/02/24 Range/Units 07:28 POC Glucose (mg/dL) 159 H (70-110) mg/dL Assessment and Plan (1) Leukocytosis Current Visit: Yes Status: Acute Code(s): D72.829 - ELEVATED WHITE BLOOD CELL COUNT, UNSPECIFIED SNOMED Code(s): 509441314 Plan: 1patient presented to hospital with generalized weakness and decreased appetite and the patient also noted to have significant urine white count 21,000 and this patient has been recently diagnosed with a liver cancer patient has been tender right upper quadrant area more likely related to the hepatobiliary disease. 2patient did have CT abdominal pelvis with oral contrast only because of his kidney function did show Innumerable hepatic masses, prominent gastric hepatic ligament lymph nodes, patient did have a CT of the chest with a small nodule bone scan was negative for any metastatic disease and MRI brain did not show any acute abnormality 3patient is status post liver biopsy reported suggestive of high-grade malignancy and likely etiology of this elevated white count patient has completed course of Rocephin seem to be doing well off antibiotics and will monitor closely off antibiotics at this point and see as needed Dictation was produced using [employer] dictation software. please excuse any gram matical, word or spelling errors. Time with Patient: Less than 30
[2024-06-03] MEDS ORDERED: hydrOXYzine HCL 25 MG TAB PO PRN (11:29)
[2024-06-03] MEDS ORDERED: ACETAMINOPHEN TAB 325 MG TAB PO PRN (11:36)
--- NOTE | 2024-06-03 11:50 | P.PN ---
Vu Is a 69-year-old gentleman with past medical history significant for recently reported diagnosis of liver cancer approximately 2 weeks ago, scheduled for PET scan tomorrow transported to the ER via EMS related to increased weakness, confusion and fall. Patient reports poor appetite, sore throat, loose congested cough, occasionally productive. Denies nausea, vomiting. Afebrile, WBC 21, lactic acid 2.9, 1.7, hemoglobin 11, platelets 185, INR 1.2. Sodium 134, potassium 5.6, bicarb 18, BUN 114, creatinine 1.64. Glucose 376, calcium 7.4, Phos 4.7 magnesium 2 alk phos 517, troponin negative x 1, ammonia less than 9, albumin 2.4. Viral studies negative. Brain CT reported no acute intracranial abnormality. Chest x-ray reported no acute cardiopulmonary process. EKG reported sinus tachycardia, 06/02/2024 yesterday morning patient declined working with physical therapy. states patient i"s not a morning person. " Reinforced patient participating with PT for discharge planning. 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 Peritoneal fluid cytology reported scattered reactive mesothelial cells, macrophages and mixed inflammatory cells, no cytologically malignant cells identified. Abdominal pain improving, right upper quadrant pain present. denies chest pain, palpitations or shortness of breath, maintaining O2 sats in the low 90s on 2 L nasal cannula. Blood sugars controlled. 06/03 This is a pleasant 69 years old male who presents because of his abdominal pain, CT showing multiple opacities throughout the liver suspicious for metastatic disease. 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 Also patient has elevated alpha-fetoprotein 11.5 Oncology/hematology team on the case and are following closely Overnight patient was more sleepy and hypoxic. As per staff he received extra dose of [place] and Xanax last night which might contributed to the symptoms. His oxygen requirements went up to 6 L/min, this morning his breathing start improving. Saturation improved to low 90s. Patient denies chest pain. No coughing. He is awake but little drowsy, he can answer some questions, he understand his illness. I explained for him his CODE STATUS and he confirmed to be his no code. Then he agreed for me to call his Ms. Browning whom she confirms he has no code stating there should be paper in the chart about his DNR status. Patient has capacity make decision, for example he knows if he is not resuscitated he will . Chest x-ray done clerical dentist assistant showing possible fluid overload. Patient received IV Lasix 20 mg last night. Will place patient on IV Lasix 40 mg twice daily. Check proBNP with close monitoring. I discussed problems and management plan with the and she is agreeable please liver biopsy was done on 05/29. I think regarding this we can start subcu heparin for DVT prophylaxis . Active Medications Generic Name Dose Route Start Last Admin Trade Name Freq PRN Reason Stop Dose Admin Acetaminophen 325 mg 06/03/24 11:36 Acetaminophen Tab 325 Mg Tab PO Q6HR PRN Mild Pain or Fever > 100.5 Hydrocodone Bitart/Acetaminophen 1 each 06/01/24 09:30 06/03/24 02:30 Hydrocodone/Apap 5-325mg 1 Each Tab PO 1 each Q6HR PRN Administration Pain Albuterol/Ipratropium 3 ml 05/24/24 12:00 06/03/24 11:35 Ipratropium-Albuterol 3 Ml Neb INHALATION 3 ml RT-QID [place] Administration Albuterol/Ipratropium 3 ml 05/24/24 08:30 06/02/24 02:07 Ipratropium-Albuterol 3 Ml Neb INHALATION 3 ml RT-Q2H PRN Administration Shortness Of Breath Or Wheezing Bisacodyl 5 mg 05/27/24 15:12 05/27/24 15:37 Bisacodyl 5 Mg Tablet.Dr PO 5 mg DAILY PRN Administration Constipation Budesonide/Formoterol Fumarate 2 puff 05/24/24 08:32 06/03/24 08:33 Symbicort 80-4.5 Mcg Inhaler INHALATION 2 puff RT-BID [place]AT[place]O Administration Dextrose/Water 25 ml 05/24/24 08:34 Dextrose 50% Syringe 50 Ml IVP PER PROTOCOL PRN Hypoglycemia Protocol Dextrose/Water 50 ml 05/24/24 08:34 Dextrose 50% Syringe 50 Ml IVP PER PROTOCOL PRN Hypoglycemia Protocol Furosemide 40 mg 06/03/24 09:00 06/03/24 09:35 Furosemide 10 Mg/Ml 4 Ml Vial IV 40 mg Q12HR GAT[place]O Administration Hydromorphone HCl 0.5 mg 05/27/24 04:37 05/30/24 06:06 Hydromorphone 0.5 Mg/0.5 Ml Syringe IVP 0.5 mg Q6HR PRN Administration Pain Hydroxyzine HCl 25 mg 06/03/24 11:29 Hydroxyzine Hcl 25 Mg Tab PO TID PRN Itching Insulin Aspart 0 unit 05/24/24 12:30 06/03/24 07:56 Insulin Aspart (Novolog) 100 Unit/Ml Vial SQ Not Given ACHS [facility] Protocol Insulin Detemir 10 unit 05/24/24 08:37 06/03/24 09:59 Insulin Detemir (Levemir) 100 Unit/Ml Syr SQ Not Given DAILY@0700 [facility] Lactulose 20 gm 05/27/24 21:00 06/03/24 07:49 Lactulose 20 Gm/30 Ml Cup PO Not Given BID [facility] Metoprolol Succinate 50 mg 05/24/24 09:00 06/03/24 09:35 Metoprolol Succinate (Er) 50 Mg Tab.Er.24h PO 50 mg QAM [facility] Administration Naloxone HCl 0.2 mg 05/24/24 03:10 Naloxone 0.4 Mg/Ml 1 Ml Vial IV Q2M PRN Opioid Reversal Nicotine 1 patch 05/24/24 09:00 06/03/24 07:50 Nicotine 21mg/24hr Patch TRANSDERM Not Given DAILY [facility] Nystatin 500,000 unit 05/24/24 09:30 06/03/24 07:50 Nystatin 100,000 Unit/Ml Susp 500,000 Unit/5 Ml Cup PO Not Given QID [facility] Protocol Ondansetron HCl 4 mg 05/25/24 11:45 06/01/24 20:22 Ondansetron 4 Mg/2 Ml Vial IVP 4 mg Q6HR PRN Administration Nausea And Vomiting Pantoprazole Sodium 40 mg 05/24/24 09:00 06/03/24 09:35 Pantoprazole 40 Mg/10 Ml Vial IV 40 mg DAILY [facility] Administration Petrolatum 1 applic 05/30/24 12:32 05/31/24 05:37 Zinc Oxide Paste (Z-Guard) 1 Applic TOPICAL 1 applic Q2HR PRN Administration Wound Healing Protocol Polyethylene Glycol 17 gm 05/27/24 21:00 06/03/24 07:49 Polyethylene Glycol 3350 17 Gm Powd.Pack PO Not Given BID [facility] Prednisolone Acetate 1 drops 05/25/24 09:00 06/02/24 13:17 Prednisolone Acetate 1% Ophth Drops 5 Ml Btl BOTH EYES 1 drops Q48H [place] Administration Pregabalin 150 mg 05/24/24 11:00 06/03/24 07:57 Pregabalin 75 Mg Cap PO Not Given TID [place] Tamsulosin HCl 0.4 mg 05/24/24 09:00 06/03/24 07:57 Tamsulosin 0.4 Mg Cap.Er.24h PO Not Given DAILY [facility] Objective - Vital Signs Vital signs: Vital Signs Temp 96.6 F L 06/03/24 07:30 Pulse 94 06/03/24 11:35 Resp 21 06/03/24 07:30 BP 112/73 06/03/24 07:30 Pulse Ox 92 L 06/03/24 08:41 FiO2 Intake & Output 06/02/24 06/03/24 06/03/24 18:59 06:59 18:59 Intake Total 2005 236 Output Total 600 Balance 2005 - Weight 59.5 kg Intake: Oral 2005 236 Output: Urine 600 Other: Voiding Method Diaper Diaper Incontinent Incontinent External Catheter External Catheter # Bowel Movements 3 - Exam -GENERAL: The patient is awake alert but little drowsy, he answers questions appropriately and follows commands, not in any acute distress. Well developed, well nourished. HEENT: Pupils are round and equally reacting to light. EOMI. No scleral icterus. No conjunctival pallor. Normocephalic, atraumatic. No pharyngeal erythema. No thyromegaly. CARDIOVASCULAR: S1 and S2 present. No murmurs, rubs, or gallops. PULMONARY: Chest is clear to auscultation, no wheezing , no crackles. -ABDOMEN: Soft, mild right abdomen tenderness, no guarding or rebound tenderness, distended, normoactive bowel sounds. No palpable organomegaly. MUSCULOSKELETAL: No joint swelling or deformity. EXTREMITIES: No cyanosis, clubbing, or pedal edema. NEUROLOGICAL: Gross neurological examination did not reveal any focal deficits. SKIN: No rashes. no petechiae. - Labs CBC & Chem 7: 06/03/24 04:15 05/31/24 05:19 Labs: Abnormal Lab Results - Last 24 Hours (Table) 06/02/24 06/02/24 06/02/24 Range/Units 12:06 14:31 17:11 WBC (4.50-10.00) X 10*3/uL RBC (4.40-5.60) X 10*6/uL Hgb (13.0-17.0) g/dL Hct (39.6-50.0) % MCH (27.0-32.0) pg MCHC (32.0-37.0) g/dL RDW (11.5-14.5) % Plt Count (140-440) X 10*3/uL Immature Gran # (0.00-0.04) X 10*3/uL Neutrophils # (1.80-7.70) X 10*3/uL Eosinophils # (0.04-0.35) X 10*3/uL POC Glucose (mg/dL) 192 H 197 H (70-110) mg/dL Tumor Marker AFP 11.50 H (0.00-7.90) ng/mL 06/02/24 06/03/24 06/03/24 Range/Units 20:18 04:15 07:25 WBC 19.35 H (4.50-10.00) X 10*3/uL RBC 4.07 L (4.40-5.60) X 10*6/uL Hgb 10.3 L (13.0-17.0) g/dL Hct 34.5 L (39.6-50.0) % MCH 25.3 L (27.0-32.0) pg MCHC 29.9 L (32.0-37.0) g/dL RDW 20.3 H (11.5-14.5) % Plt Count 128 L (140-440) X 10*3/uL Immature Gran # 0.11 H (0.00-0.04) X 10*3/uL Neutrophils # 17.32 H (1.80-7.70) X 10*3/uL Eosinophils # 0.03 L (0.04-0.35) X 10*3/uL POC Glucose (mg/dL) 174 H 171 H (70-110) mg/dL Tumor Marker AFP (0.00-7.90) ng/mL Assessment and Plan Assessment: Multiple liver masses. 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 High alpha-fetoprotein Acute hypoxic respiratory failure Fluid overload suspicious for CHF on the chest x-ray. proBNP and echocardiogram ordered Leukocytosis, most likely secondary to his liver cancer. Patient finished antibiotics and currently he is off antibiotics per ID team Anxiety Generalized weakness and fall Acute kidney injury present on admission, resolved Hypertension Hyperlipidemia History of hep C History of alcohol use COPD with no exacerbation GERD BPH History of bilateral corneal transplant Ongoing nicotine dependence Multiple joint surgeries Plan: Continue with IV Lasix Check echocardiogram Hematology/oncology team on the case for his liver cancer management Pain management Switching Xanax to Atarax Labs and medication were reviewed.. Continue same treatment. Continue with symptomatic treatment. Resume home medication. Monitor labs and vitals. DVT and GI prophylaxis. Further recommendations as per clinical course of the patient DVT prophylaxis: Subcutaneous heparin GI Prophylaxis: Pepcid Prognosis is guarded CODE STATUS: DNR, confirmed with and patient
[2024-06-03] MEDS: Acetaminophen-Codeine 300-30mg TAB PO STA (12:21)
[2024-06-03 13:20] LABS: African American GFR (CKD) 75 (>60 ml/min/1.73 sqM); Anion Gap 8 mmol/L; Blood Urea Nitrogen 70 mg/dL (9-20); Calcium 7.4 mg/dL (8.4-10.2); Carbon Dioxide 20 mmol/L (22-30); Chloride 103 mmol/L (98-107); Glucose 162 mg/dL (74-99); Non-African American GFR(CKD) 65 (>60 ml/min/1.73 sqM); Sodium 131 mmol/L (137-145)
[2024-06-03 13:29] LABS: NT-Pro-B-Type Natriuretic Pept 983 pg/mL
[2024-06-03 13:37] LABS: Potassium 5.4 mmol/L (3.5-5.1)
[2024-06-03 14:35] VITALS: BP 116/71; PULSE 90; RESP 22; TEMP 96.5
[2024-06-03] MEDS: MORPHINE SULFATE 2 MG/ML SYRINGE IVP STA ×2 (14:35→16:14)
[2024-06-03] MEDS: HEPARIN SODIUM,PORCINE 5,000 UNIT/ML 1 ML VIAL SQ SCH (16:20)
[2024-06-03] MEDS: MORPHINE SULFATE 2 MG/ML SYRINGE IVP PRN (17:42)
[2024-06-03] MEDS: LORazepam 2 MG/ML INJ IV PRN (17:43)
--- NOTE | 2024-06-04 08:49 | P.DS ---
Providers Date of admission: 05/24/24 02:17 Attending physician: Hector Hanley MD Consults: 05/24/24 03:10 Consult Physician Routine Consulting Provider: Osmany Bhandari Consult Reason/Comments: sepsis Do you want consulting provider notified?: Yes, Notify in am 05/24/24 03:12 Consult Physician Routine Consulting Provider: Moses Chowdary Consult Reason/Comments: hepatic cancer Do you want consulting provider notified?: Yes, Notify in am 05/24/24 09:14 Consult Physician Routine Consulting Provider: Mya Pimentel Consult Reason/Comments: acute renal failure, acidosis,recent Liver Ca Dx, Do you want consulting provider notified?: Yes Primary care physician: Hector Hanley MD Hospital Course: Diagnoses: Multiple liver masses. 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 High alpha-fetoprotein Acute hypoxic respiratory failure Fluid overload suspicious for CHF on the chest x-ray. proBNP and echocardiogram ordered Leukocytosis, most likely secondary to his liver cancer. Patient finished antibiotics and currently he is off antibiotics per ID team Anxiety Generalized weakness and fall Acute kidney injury present on admission, resolved Hypertension Hyperlipidemia History of hep C History of alcohol use COPD with no exacerbation GERD BPH History of bilateral corneal transplant Ongoing nicotine dependence Multiple joint surgeries Updated event: Yesterday after rounding, patient respiratory status got worse requiring more oxygen supplementation and he is getting more confused. Family then decided to pursue hospice care. I get a call from the hospice nurse and she confirms family wishing for comfort care and hospice care which looks very appropriate given his high-grade malignancy of the liver with metastatic disease to various organs. He is DNR and this was confirmed to me by the patient himself before he got confused and by the when I called her. We will start hospice care measures like morphine, Ativan scopolamine etc. with the aim to make the patient comfortable. His prognosis is very poor Please refer to progress note from 06/03 for more details Patient Condition at Discharge: Serious Plan - Discharge Summary New Discharge Prescriptions: No Action Tamsulosin [Flomax] 0.4 mg PO DAILY Pantoprazole Sodium 40 mg PO BID Atorvastatin [Lipitor] 20 mg PO HS Albuterol Inhaler [Ventolin Hfa Inhaler] 2 puff INHALATION RT-QID PRN PRN Reason: Shortness Of Breath Metoprolol Succinate [Toprol XL] 50 mg PO QAM Prednisolone Acetate/Pf [Prednisolone Acet 1% Eye Drop] 1 drop BOTH EYES Q2D busPIRone HCL 15 mg PO TID PRN PRN Reason: Anxiety amLODIPine [Norvasc] 5 mg PO DAILY Pregabalin [Lyrica] 150 mg PO TID Metoclopramide [Reglan] 10 mg PO Q6H PRN PRN Reason: Nausea LORazepam [Ativan] 0.5 mg PO BID PRN PRN Reason: Anxiety Lisinopril-Hctz 20-12.5 mg [Zestoretic 20-12.5] 1 tab PO DAILY Glimepiride [Amaryl] 4 mg PO DAILY lisinopriL 40 mg PO DAILY Tolterodine ER [Detrol LA] 2 mg PO DAILY HYDROcodone/APAP 10-325MG [[place]rom[place] 10-325] 1 tab PO TID Ondansetron [Zofran] 4 mg PO Q8HR PRN PRN Reason: Nausea Budesonide/Formoterol Fumarate [Symbicort 80-4.5 Mcg Inhaler] 2 puff INHALATION RT-BID Clobetasol Propionate [Clobex .05% Shampoo] 1 applic TOPICAL DAILY Discharge Medication List Albuterol Inhaler [Ventolin Hfa Inhaler] 2 puff INHALATION RT-QID PRN 05/28/20 [History] Atorvastatin [Lipitor] 20 mg PO HS 05/28/20 [History] Metoprolol Succinate [Toprol XL] 50 mg PO QAM 05/28/20 [History] Pantoprazole Sodium 40 mg PO BID 05/28/20 [History] Tamsulosin [Flomax] 0.4 mg PO DAILY 05/28/20 [History] Lisinopril-Hctz 20-12.5 mg [Zestoretic 20-12.5] 1 tab PO DAILY 02/03/21 [History] Prednisolone Acetate/Pf [Prednisolone Acet 1% Eye Drop] 1 drop BOTH EYES Q2D 02/03/21 [History] Glimepiride [Amaryl] 4 mg PO DAILY 04/03/22 [History] Budesonide/Formoterol Fumarate [Symbicort 80-4.5 Mcg Inhaler] 2 puff INHALATION RT-BID 05/24/24 [History] Clobetasol Propionate [Clobex .05% Shampoo] 1 applic TOPICAL DAILY 05/24/24 [History] HYDROcodone/APAP 10-325MG [Chromo 10-325] 1 tab PO TID 05/24/24 [History] LORazepam [Ativan] 0.5 mg PO BID PRN 05/24/24 [History] Metoclopramide [Reglan] 10 mg PO Q6H PRN 05/24/24 [History] Ondansetron [Zofran] 4 mg PO Q8HR PRN 05/24/24 [History] Pregabalin [Lyrica] 150 mg PO TID 05/24/24 [History] Tolterodine ER [Detrol LA] 2 mg PO DAILY 05/24/24 [History] amLODIPine [Norvasc] 5 mg PO DAILY 05/24/24 [History] busPIRone HCL 15 mg PO TID PRN 05/24/24 [History] lisinopriL 40 mg PO DAILY 05/24/24 [History] Follow up Appointment(s)/Referral(s): Velasquez Jensen [STAFF PHYSICIAN] - 06/19/24 1:15 pm Hector Hanley MD [Primary Care Provider] - 1-2 days Discharge Disposition: DISCH TO [facility]
== END 2024-06-03 18:47 | disposition hospice, inpatient (51) | DRG 682 ==
LOC: EC 00:18 → 5NMEDONC 02:17
PROVIDERS: ADMIT Family Medicine; ATTEND Family Medicine
PROC: 0FB13ZX Excision of Right Lobe Liver, Percutaneous Approach, Diagnostic (ICD-10-PCS; principal; 2024-05-29)
DX: N17.0 Acute kidney failure with tubular necrosis (principal); G93.41 Metabolic encephalopathy; J96.01 Acute respiratory failure with hypoxia; E87.1 Hypo-osmolality and hyponatremia; E87.20 Acidosis, unspecified; C22.9 Malignant neoplasm of liver, not specified as primary or secondary; C79.9 Secondary malignant neoplasm of unspecified site; R65.10 Systemic inflammatory response syndrome (SIRS) of non-infectious origin without acute organ dysfunction; Z51.5 Encounter for palliative care; Z66 Do not resuscitate; E11.22 Type 2 diabetes mellitus with diabetic chronic kidney disease; E78.5 Hyperlipidemia, unspecified; E86.0 Dehydration; E86.1 Hypovolemia; K21.9 Gastro-esophageal reflux disease without esophagitis; J44.9 Chronic obstructive pulmonary disease, unspecified; N40.0 Benign prostatic hyperplasia without lower urinary tract symptoms; E83.42 Hypomagnesemia; E87.5 Hyperkalemia; F41.9 Anxiety disorder, unspecified; G47.30 Sleep apnea, unspecified; N18.30 Chronic kidney disease, stage 3 unspecified; W19.XXXA Unspecified fall, initial encounter; F17.200 Nicotine dependence, unspecified, uncomplicated; G89.29 Other chronic pain; I12.9 Hypertensive chronic kidney disease with stage 1 through stage 4 chronic kidney disease, or unspecified chronic kidney disease; Z95.1 Presence of aortocoronary bypass graft; Z94.7 Corneal transplant status; Z79.899 Other long term (current) drug therapy; Z79.4 Long term (current) use of insulin; Z79.51 Long term (current) use of inhaled steroids; Z79.82 Long term (current) use of aspirin; Z79.84 Long term (current) use of oral hypoglycemic drugs; Z95.2 Presence of prosthetic heart valve
CPT/HCPCS: 36415; 47000; 70450; 70553; 71045; 71046; 71260; 74176; 76705; 76770; 77012; 78306; 80048; 80053; 80074; 81003; 82105; 82140; 83036; 83605; 83735; 83880; 84100; 84484; 85025; 85610; 85730; 87040; 87636; 88108; 88305; 88307; 88341; 88342; 93005; 94640; 94760; 96360; 96361; 99285

== ENCOUNTER 2024-06-03 18:09 | Inpatient (IN) | payer MEDICAID ==
[2024-06-03] MEDS ORDERED: ONDANSETRON 4 MG/2 ML VIAL IVP PRN (18:59)
[2024-06-03] MEDS ORDERED: ARTIFICIAL TEARS-HYPROMELLOSE DROPS 15 ML BTL BOTH EYES PRN (18:59)
[2024-06-03] MEDS ORDERED: ACETAMINOPHEN SUPPOSITORY 650 MG SUPP RECTAL PRN (18:59)
[2024-06-03] MEDS: SCOPOLAMINE 1 MG/72 HR PATCH TRANSDERM SCH (19:50)
[2024-06-03] MEDS: MORPHINE SULFATE 2 MG/ML SYRINGE IV PRN (19:50)
[2024-06-03] MEDS: ATROPINE OPHTH SOLN 1% 5ML BTL SUBLINGUAL PRN (19:51)
[2024-06-03] MEDS: LORazepam 2 MG/ML INJ IV PRN (19:53)
[2024-06-03] MEDS: GLYCOPYRROLATE 0.2 MG/ML 2 ML VIAL IVP PRN (23:21)
[2024-06-04] MEDS: MORPHINE SULFATE 4 MG/ML SYRINGE IV PRN (09:15)
--- NOTE | 2024-06-04 14:14 | P.HPIM ---
History of Present Illness Is a 69-year-old gentleman with past medical history significant for recently reported diagnosis of liver cancer approximately 2 weeks ago, scheduled for PET scan tomorrow transported to the ER via EMS related to increased weakness, confusion and fall. Patient reports poor appetite, sore throat, loose congested cough, occasionally productive. Denies nausea, vomiting. Afebrile, WBC 21, lactic acid 2.9, 1.7, hemoglobin 11, platelets 185, INR 1.2. Sodium 134, potassium 5.6, bicarb 18, BUN 114, creatinine 1.64. Glucose 376, calcium 7.4, Phos 4.7 magnesium 2 alk phos 517, troponin negative x 1, ammonia less than 9, albumin 2.4. Viral studies negative. Brain CT reported no acute intracranial abnormality. Chest x-ray reported no acute cardiopulmonary process. EKG reported sinus tachycardia, 06/02/2024 yesterday morning patient declined working with physical therapy. states patient i"s not a morning person. " Reinforced patient participating with PT for discharge planning. 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 Peritoneal fluid cytology reported scattered reactive mesothelial cells, macrophages and mixed inflammatory cells, no cytologically malignant cells identified. Abdominal pain improving, right upper quadrant pain present. denies chest pain, palpitations or shortness of breath, maintaining O2 sats in the low 90s on 2 L nasal cannula. Blood sugars controlled. 06/03 This is a pleasant 69 years old male who presents because of his abdominal pain, CT showing multiple opacities throughout the liver suspicious for metastatic disease. 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 Also patient has elevated alpha-fetoprotein 11.5 Oncology/hematology team on the case and are following closely Overnight patient was more sleepy and hypoxic. As per staff he received extra dose of [place] and Xanax last night which might contributed to the symptoms. His oxygen requirements went up to 6 L/min, this morning his breathing start improving. Saturation improved to low 90s. Patient denies chest pain. No coughing. He is awake but little drowsy, he can answer some questions, he understand his illness. I explained for him his CODE STATUS and he confirmed to be his no code. Then he agreed for me to call his Ms. Browning whom she confirms he has no code stating there should be paper in the chart about his DNR status. Patient has capacity make decision, for example he knows if he is not resuscitated he will . Chest x-ray done recruiting scheduler showing possible fluid overload. Patient received IV Lasix 20 mg last night. Will place patient on IV Lasix 40 mg twice daily. Check proBNP with close monitoring. I discussed problems and management plan with the and she is agreeable please liver biopsy was done on 05/29. I think regarding this we can start subcu heparin for DVT prophylaxis 06/04 Family decided on hospice care yesterday Patient currently under hospice care He looks comfortable not in distress No family members at bedside Review of Systems ROS unobtainable: due to mental status Past Medical History Past Medical History: Cancer, COPD, Diabetes Mellitus, GERD/Reflux, Hyperlipidemia, Hypertension, Liver Disease, Osteoarthritis (OA), Prostate Disorder, Sleep Apnea/CPAP/BIPAP Additional Past Medical History / Comment(s): Hx Hepatitis C, now resolved. Enlarged prostate/urinary frequency. No CPAP use. Umbilical Hernia. Liver Cancer History of Any Multi-Drug Resistant Organisms: None Reported Past Surgical History: Back Surgery, Cholecystectomy, Coronary Bypass/CABG, Hernia Repair Additional Past Surgical History / Comment(s): BILATERAL CORNEAL TRANSPLANT 2020. Fusion L1-L5 back, bilateral rotator cuff repairs, bilateral knee surgery, left wrist carpal tunnel surgery, aortic valve replacement, foot surgery, bilateral catarARACTS Past Anesthesia/Blood Transfusion Reactions: No Reported Reaction Past Psychological History: No Psychological Hx Reported Smoking Status: Current every day smoker Past Alcohol Use History: None Reported Past Drug Use History: None Reported - Past Family History Mother Family Medical History: Cancer Additional Family Medical History / Comment(s): breast Sister(s) Family Medical History: Cancer Additional Family Medical History / Comment(s): breast Medications and Allergies Home Medications Medication Instructions Recorded Confirmed Type Albuterol Inhaler [Ventolin Hfa 2 puff INHALATION RT-QID PRN 05/28/20 06/03/24 History Inhaler] Atorvastatin [Lipitor] 20 mg PO HS 05/28/20 06/03/24 History Metoprolol Succinate [Toprol XL] 50 mg PO QAM 05/28/20 06/03/24 History Pantoprazole Sodium 40 mg PO BID 05/28/20 06/03/24 History Tamsulosin [Flomax] 0.4 mg PO DAILY 05/28/20 06/03/24 History Lisinopril-Hctz 20-12.5 mg 1 tab PO DAILY 02/03/21 06/03/24 History [Zestoretic 20-12.5] Prednisolone Acetate/Pf 1 drop BOTH EYES Q2D 02/03/21 06/03/24 History [Prednisolone Acet 1% Eye Drop] Glimepiride [Amaryl] 4 mg PO DAILY 04/03/22 06/03/24 History Budesonide/Formoterol Fumarate 2 puff INHALATION RT-BID 05/24/24 06/03/24 History [Symbicort 80-4.5 Mcg Inhaler] Clobetasol Propionate [Clobex .05% 1 applic TOPICAL DAILY 05/24/24 06/03/24 History Shampoo] HYDROcodone/APAP 10-325MG [[place] 1 tab PO TID 05/24/24 06/03/24 History 10-325] LORazepam [Ativan] 0.5 mg PO BID PRN 05/24/24 06/03/24 History Metoclopramide [Reglan] 10 mg PO Q6H PRN 05/24/24 06/03/24 History Ondansetron [Zofran] 4 mg PO Q8HR PRN 05/24/24 06/03/24 History Pregabalin [Lyrica] 150 mg PO TID 05/24/24 06/03/24 History Tolterodine ER [Detrol LA] 2 mg PO DAILY 05/24/24 06/03/24 History amLODIPine [Norvasc] 5 mg PO DAILY 05/24/24 06/03/24 History busPIRone HCL 15 mg PO TID PRN 05/24/24 06/03/24 History lisinopriL 40 mg PO DAILY 05/24/24 06/03/24 History Allergies Allergy/AdvReac Type Severity Reaction Status Date / Time Interferons Allergy Anaphylaxis Verified 05/24/24 10:23 peginterferon ananda-2a Allergy Anaphylaxis Verified 05/24/24 10:23 [From Pegasys] riboflavin (vitamin B2) Allergy Anaphylaxis Verified 05/24/24 10:23 amitriptyline AdvReac Nausea & Verified 05/24/24 10:23 Vomiting & Diarrhea aspirin AdvReac RINGING IN Verified 05/24/24 10:23 EARS, DR STILL WANTS HIM TO TAKE IT. gabapentin [From Neurontin] AdvReac Unknown Verified 05/24/24 10:23 Latex, Natural Rubber AdvReac Rash/Hives Verified 05/24/24 10:23 Penicillins AdvReac Nausea & Verified 05/24/24 10:23 Vomiting sulfamethoxazole AdvReac Nausea & Verified 05/24/24 10:23 [From Bactrim] Vomiting trimethoprim [From Bactrim] AdvReac Nausea & Verified 05/24/24 10:23 Vomiting Physical Exam Vitals: Intake and Output 06/03/24 06/04/24 06/04/24 22:59 06:59 14:59 Output Total 300 Balance -300 Output: Urine 300 Other: Voiding Method Diaper Incontinent External Catheter Weight 59.5 kg -GENERAL: The patient is sleepy, nonverbal HEENT: Pupils are round and equally reacting to light. EOMI. No scleral icterus. No conjunctival pallor. Normocephalic, atraumatic. No pharyngeal erythema. No thyromegaly. CARDIOVASCULAR: S1 and S2 present. No murmurs, rubs, or gallops. -PULMONARY: Chest is clear to auscultation, no wheezing , no crackles. Mildly tachypneic ABDOMEN: Soft, nontender, nondistended, normoactive bowel sounds. No palpable organomegaly. MUSCULOSKELETAL: No joint swelling or deformity. EXTREMITIES: No cyanosis, clubbing, or pedal edema. NEUROLOGICAL: Gross neurological examination did not reveal any focal deficits. SKIN: No rashes. no petechiae. Assessment and Plan Assessment: Multiple liver masses. 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 High alpha-fetoprotein. Currently under hospice care which looks appropriate Acute hypoxic respiratory failure Fluid overload suspicious for CHF on the chest x-ray. proBNP and echocardiogram ordered Leukocytosis, most likely secondary to his liver cancer. Patient finished antibiotics and currently he is off antibiotics per ID team Anxiety Generalized weakness and fall Acute kidney injury present on admission, resolved Hypertension Hyperlipidemia History of hep C History of alcohol use COPD with no exacerbation GERD BPH History of bilateral corneal transplant Ongoing nicotine dependence Multiple joint surgeries Plan: Continue with hospice care Continue with pain medication morphine and Robinul Continue with atropine ophthalmic solution On scopolamine patch Zofran as needed Ativan as needed DNR Very poor prognosis
--- NOTE | 2024-06-05 17:09 | P.DS ---
Providers Date of admission: 06/03/24 18:49 Attending physician: Alex Gasca MD Primary care physician: Alex Gasca MD Hospital Course: pt was under hospice care he is on 06/04/2024 at 18:08 Plan - Discharge Summary New Discharge Prescriptions: No Action Tamsulosin [Flomax] 0.4 mg PO DAILY Pantoprazole Sodium 40 mg PO BID Atorvastatin [Lipitor] 20 mg PO HS Albuterol Inhaler [Ventolin Hfa Inhaler] 2 puff INHALATION RT-QID PRN PRN Reason: Shortness Of Breath Metoprolol Succinate [Toprol XL] 50 mg PO QAM Prednisolone Acetate/Pf [Prednisolone Acet 1% Eye Drop] 1 drop BOTH EYES Q2D busPIRone HCL 15 mg PO TID PRN PRN Reason: Anxiety amLODIPine [Norvasc] 5 mg PO DAILY Pregabalin [Lyrica] 150 mg PO TID Metoclopramide [Reglan] 10 mg PO Q6H PRN PRN Reason: Nausea LORazepam [Ativan] 0.5 mg PO BID PRN PRN Reason: Anxiety Lisinopril-Hctz 20-12.5 mg [Zestoretic 20-12.5] 1 tab PO DAILY Glimepiride [Amaryl] 4 mg PO DAILY lisinopriL 40 mg PO DAILY Tolterodine ER [Detrol LA] 2 mg PO DAILY HYDROcodone/APAP 10-325MG [Concan 10-325] 1 tab PO TID Ondansetron [Zofran] 4 mg PO Q8HR PRN PRN Reason: Nausea Budesonide/Formoterol Fumarate [Symbicort 80-4.5 Mcg Inhaler] 2 puff INHALATION RT-BID Clobetasol Propionate [Clobex .05% Shampoo] 1 applic TOPICAL DAILY Discharge Medication List Albuterol Inhaler [Ventolin Hfa Inhaler] 2 puff INHALATION RT-QID PRN 05/28/20 [History] Atorvastatin [Lipitor] 20 mg PO HS 05/28/20 [History] Metoprolol Succinate [Toprol XL] 50 mg PO QAM 05/28/20 [History] Pantoprazole Sodium 40 mg PO BID 05/28/20 [History] Tamsulosin [Flomax] 0.4 mg PO DAILY 05/28/20 [History] Lisinopril-Hctz 20-12.5 mg [Zestoretic 20-12.5] 1 tab PO DAILY 02/03/21 [History] Prednisolone Acetate/Pf [Prednisolone Acet 1% Eye Drop] 1 drop BOTH EYES Q2D 02/03/21 [History] Glimepiride [Amaryl] 4 mg PO DAILY 04/03/22 [History] Budesonide/Formoterol Fumarate [Symbicort 80-4.5 Mcg Inhaler] 2 puff INHALATION RT-BID 05/24/24 [History] Clobetasol Propionate [Clobex .05% Shampoo] 1 applic TOPICAL DAILY 05/24/24 [History] HYDROcodone/APAP 10-325MG [Concan 10-325] 1 tab PO TID 05/24/24 [History] LORazepam [Ativan] 0.5 mg PO BID PRN 05/24/24 [History] Metoclopramide [Reglan] 10 mg PO Q6H PRN 05/24/24 [History] Ondansetron [Zofran] 4 mg PO Q8HR PRN 05/24/24 [History] Pregabalin [Lyrica] 150 mg PO TID 05/24/24 [History] Tolterodine ER [Detrol LA] 2 mg PO DAILY 05/24/24 [History] amLODIPine [Norvasc] 5 mg PO DAILY 05/24/24 [History] busPIRone HCL 15 mg PO TID PRN 05/24/24 [History] lisinopriL 40 mg PO DAILY 05/24/24 [History] Discharge Disposition: - Preliminary Cause of Preliminary Cause of : metastatic liver cancer
== END 2024-06-04 19:47 | disposition expired | DRG 951 ==
LOC: 5NMEDONC 18:49
PROVIDERS: ADMIT Internal Medicine; ATTEND Internal Medicine
DX: Z51.5 Encounter for palliative care (principal); J96.01 Acute respiratory failure with hypoxia; N17.9 Acute kidney failure, unspecified; C78.7 Secondary malignant neoplasm of liver and intrahepatic bile duct; E78.5 Hyperlipidemia, unspecified; Z66 Do not resuscitate; E11.9 Type 2 diabetes mellitus without complications; E87.70 Fluid overload, unspecified; F41.9 Anxiety disorder, unspecified; I10 Essential (primary) hypertension; J44.9 Chronic obstructive pulmonary disease, unspecified; K21.9 Gastro-esophageal reflux disease without esophagitis; N40.0 Benign prostatic hyperplasia without lower urinary tract symptoms; Z79.51 Long term (current) use of inhaled steroids; R00.0 Tachycardia, unspecified; Z79.84 Long term (current) use of oral hypoglycemic drugs; Z79.899 Other long term (current) drug therapy; Z94.7 Corneal transplant status; Z85.05 Personal history of malignant neoplasm of liver; Z95.1 Presence of aortocoronary bypass graft; Z95.2 Presence of prosthetic heart valve; Z88.6 Allergy status to analgesic agent; Z88.2 Allergy status to sulfonamides; Z91.040 Latex allergy status; Z88.0 Allergy status to penicillin; Z98.42 Cataract extraction status, left eye; Z98.41 Cataract extraction status, right eye